=== PATIENT | male | born 1960 | race Two or more races ===

== ENCOUNTER 2022-12-26 23:12 | Inpatient (IN) | payer MEDICARE, MEDICAID, SELFPAY ==
[2022-12-26 23:23] VITALS: BP 151/91; BP 210/122; PULSE 104; PULSE 106; RESP 16; TEMP 36.9; O2SAT 94; O2SAT 97; BMI 28.7
--- NOTE | 2022-12-26 23:30 | ECG_ITS ---
Test Reason : TACHYCARDIA Blood Pressure : / mmHG Vent. Rate : 094 BPM Atrial Rate : 094 BPM P-R Int : 154 ms QRS Dur : 084 ms QT Int : 362 ms P-R-T Axes : 043 031 073 degrees QTc Int : 452 ms Normal sinus rhythm Nonspecific T wave abnormality Abnormal ECG When compared with ECG of 06-APR-2009 11:42, Non-specific change in ST segment in Lateral leads Referred By: Generic ED Physician Electronically Signed By:PHOENIX TOLENTINO MD
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
[2022-12-26 23:56] LABS: MANUAL DIFF FLAG NO
[2022-12-26 23:57] LABS: Basophils Percent Auto 0.3 % (0-2); Eosinophils Absolute Auto 0.1 X10*3/uL (0.0-0.4); Eosinophils Percent Auto 0.8 % (0-4); Hematocrit 41.5 % (42.0-52.0); Hemoglobin 14.2 g/dl (14.0-18.0); Imm Gran Abs Auto 0.02 X10*3/uL (0.00-0.03); Imm Gran Pct Auto 0.3 % (0.0-0.4); Lymphocytes Absolute Auto 1.3 X10*3/uL (1.2-4.9); Lymphocytes Percent Auto 17.1 % (20-40); Mean Corpuscular HGB Conc 34.2 g/dl (31.0-36.0); Mean Corpuscular Hemoglobin 29.2 pg (27.0-33.0); Mean Corpuscular Volume 85.2 fL (80.0-98.0); Mean Platelet Volume 9.4 fL (9.4-12.4); Monocytes Absolute Auto 0.6 X10*3/uL (0.1-1.2); Monocytes Percent Auto 7.5 % (2-11); Neutrophils Absolute Auto 5.7 x10*3/uL (2.0-8.3); Platelet Count 249 X10*3/uL (160-400); Red Blood Count 4.87 X10*6/uL (4.60-5.80); Red Cell Distribution Width 13.3 % (11.0-16.0); White Blood Count 7.7 X10*3/uL (4.8-10.8)
[2022-12-26 23:58] LABS: Appearance Urine Clear; Color Urine Dark Yellow; Glucose Urine UA Negative (Negative); Leukocyte Esterase Urine Small (1+) (Negative); Nitrite Urine Negative (Negative); Specific Gravity - Urine >= 1.030 (1.005-1.025); UMIC TRIGGER UACC YES; Urine Blood Trace (Negative); Urine Ketones 15 mg/dL (Negative); Urine Protein 30 (1+) mg/dL (Neg-Trace)
[2022-12-27 00:05] LABS: Bacteria Urine None Seen (None Seen); Hyaline Casts Urine 0-2 /LPF (0-2); Squamous Epithelial Cell Urine 0-2 /HPF (0-2); UACC Culture Trigger YES
[2022-12-27 00:06] LABS: Amphetamine Screen Urine Not Detected (Not Detect); Barbiturates, Urine Not Detected (Not Detect); Benzodiazepines Screen Urine Not Detected (Not Detect); Cannabinoid Screen Urine Not Detected (Not Detect); Cocaine Screen Urine POSITIVE (Not Detect); Fentanyl, urine Not Detected (Not Detect); Opiate Screen Urine Not Detected (Not Detect); Phencyclidine Screen Urine Not Detected (Not Detect)
[2022-12-27 00:10] LABS: Anion Gap 16 (12-20); Blood Urea Nitrogen 18 mg/dL (9-16); Calcium 9.1 mg/dL (8.4-10.2); Carbon Dioxide 23 mmol/L (22-29); Chloride 106 mmol/L (96-108); Creatinine Clr Calc Pharmacy 82.3; Estimated Glomerular Filt Rate > 60; Glucose Random 104 mg/dL (60-115); Potassium 3.4 mmol/L (3.3-5.1); Sodium 142 mmol/L (135-145)
--- NOTE | 2022-12-27 00:18 | MHC.EDTECH ---
[facility] 8
--- NOTE | 2022-12-27 02:36 | PC.NURSE ---
Erin from [facility] called looking for an update on the this pt.
[2022-12-27 02:54] VITALS: BP 157/96; PULSE 84; RESP 18; O2SAT 99
--- NOTE | 2022-12-27 05:30 | PC.NURSE ---
patient received in the unit in the unit up in bed complaining of bed not able to be elevated patient is frustrated and restless patient will continue to be monitored for safety
[2022-12-27 08:55] VITALS: BP 145/82; PULSE 88; RESP 18; TEMP 36.8; O2SAT 98
--- NOTE | 2022-12-27 09:01 | PC.NURSE ---
pt is a/o x 4 no sob/andrzej noted speaks in full sentences. pt denies any si/hi. care team at bedside. pt aware of plan of care.
--- NOTE | 2022-12-27 10:28 | PC.NURSE ---
dr. kilgore with brusher machine is at bedside, pt aware of plan of care.
--- NOTE | 2022-12-27 11:10 | PC.NURSE ---
CARE TEAM WITH [facility] MAGISTRATE AT BEDSIDE. PT AWARE OF PLAN OF CARE.
--- NOTE | 2022-12-27 14:36 | MHC.CARE ---
Pt seen by CARE team and placed on section 12 for inpatient level of care.
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
[2022-12-27 17:13] VITALS: BP 150/92; PULSE 59; RESP 19; TEMP 37.3; O2SAT 100
--- NOTE | 2022-12-27 22:01 | MHC.CARE ---
Tw conducted a bed search for this patient. No beds avaialble, Faxed to [facility] for review
[2022-12-28 00:58] LABS: COVID-19 Test Negative (Negative); IDNOW Serial# 08D9AD1C
--- NOTE | 2022-12-28 06:41 | PC.NURSE ---
Patient slept through the night, no distress observed/reported, patient is currently not on any home medication, patient is primarily Kosovan speaking but understand Welsh enough to understand the care, disposition per care team is section 12 inpatient bed search, VSS, behavior non concerning, will continue to monitor.
[2022-12-28 16:12] VITALS: BP 137/92; PULSE 69; RESP 16; TEMP 36.9; O2SAT 99
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
[2022-12-29 09:30] VITALS: BP 168/99; PULSE 74; RESP 18; TEMP 36.7; O2SAT 96
[2022-12-29 09:35] LABS: Estimated Average Glucose 111 mg/dL; Hemoglobin A1c % 5.5 %
[2022-12-29 09:36] LABS: Cholesterol 149 mg/dL; HDL Cholesterol 38 mg/dL; LDL Cholesterol Calculated 94 mg/dl; Triglycerides 88 mg/dL
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
[2022-12-29 18:00] VITALS: BP 184/94; PULSE 65; TEMP 36.4
[2022-12-30 06:00] VITALS: BP 124/75; PULSE 82; RESP 18; TEMP 36.3; O2SAT 98
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
[2022-12-30 19:40] VITALS: BP 161/85; PULSE 68; TEMP 35.9; O2SAT 99
[2022-12-30] MEDS: hydrOXYzine HCL 25 MG TABLET PO (19:49)
[2022-12-31 06:00] VITALS: BP 132/78; PULSE 72; RESP 18; TEMP 36.8; O2SAT 98
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
[2022-12-31 21:10] VITALS: BP 157/91; PULSE 72; TEMP 36.8
[2023-01-01 09:14] VITALS: BP 177/86; PULSE 66; RESP 18; TEMP 36.3; O2SAT 100
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
[2023-01-01 19:45] VITALS: BP 173/89; PULSE 75; TEMP 37.1; O2SAT 98
--- NOTE | 2023-01-01 21:12 | PC.NURSE ---
Patient declined to take Ceftin 500 mg po.
[2023-01-02 06:00] VITALS: BP 182/86; PULSE 58; RESP 18; TEMP 36.2; O2SAT 98
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
--- NOTE | 2023-01-02 22:20 | PC.NURSE ---
Patient refused HS Ceftin.
[2023-01-03 08:30] VITALS: BP 172/92; PULSE 68; RESP 18; TEMP 36.4; O2SAT 98
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
[2023-01-03 18:00] VITALS: BP 171/94; PULSE 72; TEMP 36.4; O2SAT 94
[2023-01-04 08:17] VITALS: BP 160/77; PULSE 56; RESP 16; TEMP 36.5; O2SAT 98
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
[2023-01-04] MEDS: Naloxone HCl Nasal TAKE HOME 4 MG SPRAY 8 MG NOSTRILALT (10:32)
== END 2023-01-04 11:50 | disposition home or self-care (01) | DRG 897 ==
LOC: HO.ED 12-27 05:04 → HO.PM5 12-28 22:08
PROVIDERS: Admitting Provider Psychiatry & Neurology Psychiatry; Emergency Provider Emergency Medicine; Visit Provider Psychiatry & Neurology Psychiatry
DX: F16.159 Hallucinogen abuse with hallucinogen-induced psychotic disorder, unspecified (principal); R45.851 Suicidal ideations; R45.850 Homicidal ideations; Z20.822 Contact with and (suspected) exposure to COVID-19; F14.10 Cocaine abuse, uncomplicated
CPT/HCPCS: 36415; 80048; 80061; 80307; 81001; 83036; 85025; 87086; 87635; 93005; 99285

== ENCOUNTER → 2022-12-26 23:30 | Outpatient (BNV) | payer MEDICARE, MEDICAID, SELFPAY | PROVIDERS: Emergency Provider Emergency Medicine; Visit Provider Internal Medicine Cardiovascular Disease | DX: R00.0 Tachycardia, unspecified (principal) | CPT/HCPCS: 93010 ==

== ENCOUNTER → 2022-12-27 00:43 | Outpatient (BNV) | payer MEDICARE, MEDICAID, SELFPAY | PROVIDERS: Emergency Provider Emergency Medicine; Visit Provider Social Worker | DX: F16.10 Hallucinogen abuse, uncomplicated (principal); F14.10 Cocaine abuse, uncomplicated; F29 Unspecified psychosis not due to a substance or known physiological condition | CPT/HCPCS: 90792; 99231; 99232; 99238; 99285 ==

== ENCOUNTER 2023-01-10 14:10 | Inpatient (IN) | payer MEDICARE, MEDICAID, SELFPAY ==
--- NOTE | 2023-01-10 14:41 | ECG_ITS ---
Test Reason : MEDICAL CLEARANCE Blood Pressure : / mmHG Vent. Rate : 073 BPM Atrial Rate : 073 BPM P-R Int : 160 ms QRS Dur : 084 ms QT Int : 364 ms P-R-T Axes : 015 049 086 degrees QTc Int : 401 ms Sinus rhythm with marked sinus arrhythmia Minimal voltage criteria for LVH, may be normal variant ( Sokolow-Weber ) Nonspecific T wave abnormality Abnormal ECG When compared with ECG of 26-DEC-2022 23:43, No significant change was found Referred By: Melissa Zapata Electronically Signed By:Hugh Vidal
[2023-01-10 15:07] VITALS: BP 147/77; PULSE 82; RESP 18; TEMP 37.3; O2SAT 98; BMI 28.1
--- NOTE | 2023-01-10 15:07 | ED.PSYCH ---
HPI - Psych General Chief Complaint: Psychiatric Symptoms Stated Complaint: Crisis Time Seen by Provider: 01/10/23 14:51 Source: patient Mode of arrival: ambulatory Limitations: no limitations History of Present Illness HPI Narrative: Patient comes to the emergency room complaining of suicidal ideation. Patient states that he relapsed using drugs and he has been considering hurting himself. No specific plan. Asking to be seen by behavioral health. Of note, patient was discharged 6 days ago, patient was hospitalized for psychosis secondary to cocaine and PCP abuse Related Data Home Medications Medication Instructions Recorded Confirmed No Known Home Meds 01/10/23 01/10/23 Allergies Allergy/AdvReac Type Severity Reaction Status Date / Time Shellfish Allergy Unknown UNKNOWN Uncoded 02/21/20 16:59 Review of Systems Review of Systems: Constitutional : No Weight loss, No Fever, No Chills, No Night Sweats, No Fatigue, No Malaise ENT/Mouth : No Hearing loss, No Ear Pain, No Nasal Congestion, No Sinus Pain, No Hoarseness, No sore throat, No Rhinorrhea, No Swallowing Difficulty Eyes: No Eye Pain, No Swelling, No Redness, No Foreign Body, No Discharge, No Vision Changes Cardiovascular : No Chest Pain, No SOB, No Dyspnea on Exertion, No Orthopnea, No Edema, No Palpitations Respiratory : No Cough, No Sputum, No Wheezing, No Smoke Exposure, No Dyspnea Gastrointestinal : No Nausea, No Vomiting, No Diarrhea, No Constipation, No abdominal Pain, No Hematochezia, No Melena Genitourinary : no irregular bleeding, No Dysuria, No Urinary Frequency, No Hematuria, No Urinary Incontinence, No Urgency, No Flank Pain, No Urinary Flow Changes, No Hesitancy Musculoskeletal : No joint pain, No Myalgias, No Joint Swelling Skin : No Skin Lesions, No rash Neuro : No Weakness, No Numbness, No Paresthesias, No Loss of Consciousness, No Dizziness, No Headache Psych : Being of anxiety, depression, suicidal ideation, denies homicidal ideation, complaining of drug relapse Heme/Lymph: No Bruising, No Bleeding,No Lymphadenopathy Endocrine : No Polyuria, No Polydipsia, No Temperature Intolerance PMFSH Past Medical History Medical History Cocaine abuse PCP abuse Psychosis Social History Social History Household Members: Family Housing: Apartment Do you presently have visiting nurse or other home services: No Alcohol intake: never Patient Tobacco Use Status: Never used Tobacco Smoked in Last 30 Days: No Second Hand Smoke Exposure: No Use of substances other than those prescribed or required for medical reasons: Yes Substance Use Type: Crack/Cocaine Substance Use Type Other:: patient un willinging to say Advance Directives: No Advance Directives Information Provided: No service: No Sexual orientation: Straight/Heterosexual Physical Exam Vital Signs: Vital Signs: Last Vital Signs Temp 97.8 F 01/11/23 01:48 Pulse 67 01/11/23 01:48 Resp 18 01/11/23 01:48 BP 176/89 H 01/11/23 01:48 Pulse Ox 99 01/11/23 01:48 O2 Del Method Room Air 01/11/23 01:48 BMI result Body Mass Index 28.1 Const: Other: Appearance: Alert. Oriented X3. No acute distress. Eyes: Pupils equal, round and reactive to light. ENT: Pharynx normal. Neck: Normal inspection. Neck supple. No lymph nodes noted. No crepitus CVS: Normal heart rate and rhythm. Pulses normal. Normal S1 and S2 Respiratory: No respiratory distress. Breath sounds normal. No Wheezing. No rales Abdomen: Soft and nontender. No rigidity. No distention. Skin: Skin warm and dry. Normal skin color. Normal skin turgor. Extremities: No lower extremity edema. No Lacerations. No Rash Neuro: Oriented X 3. No motor deficit. No sensory deficit. Moving all extremities. No slurred speech. CN 2 through 12 grossly intact Psych: calm, cooperative, flatl affect Course Course Course Narrative: -all of patient's labs pending -care team consult pending -physician observation started at 15:00 Reevaluation(s) Reevaluation #1: Asymptomatic elevated blood pressure otherwise stable vital signs, no events overnight reported by the nurse, await for care team evaluation today, continue with physician observation. Time: 08:35 Medical Decision Making Lab Data 01/10/23 15:26 01/10/23 15:26 Labs: Lab Results 01/10/23 01/10/23 01/10/23 Range/Units 15:26 15:26 15:26 WBC (4.8-10.8) X10*3/uL RBC (4.60-5.80) X10*6/uL Hgb (14.0-18.0) g/dl Hct (42.0-52.0) % MCV (80.0-98.0) fL MCH (27.0-33.0) pg MCHC (31.0-36.0) g/dl RDW (11.0-16.0) % Plt Count (160-400) X10*3/uL MPV (9.4-12.4) fL Immature Gran % (Auto) (0.0-0.4) % Neut % (Auto) (45-73) % Lymph % (Auto) (20-40) % [place] % (Auto) (2-11) % Eos % (Auto) (0-4) % Baso % (Auto) (0-2) % Lymph # (Auto) (1.2-4.9) X10*3/uL [place] # (Auto) (0.1-1.2) X10*3/uL Eos # (Auto) (0.0-0.4) X10*3/uL Baso # (Auto) (0.0-0.2) X10*3/uL Abs Immat Gran (auto) (0.00-0.03) X10*3/uL Absolute Neuts (auto) (2.0-8.3) x10*3/uL Absolute Nucleated RBC (0.0-0.012) X10*3/uL Nucleated RBC % (auto) (0.0-0.2) /100WBC Sodium 142 (135-145) mmol/L Potassium 3.5 (3.3-5.1) mmol/L Chloride 106 (96-108) mmol/L Carbon Dioxide 30 H (22-29) mmol/L Anion Gap 10 L (12-20) BUN 11 (9-16) mg/dL Creatinine 1.27 (0.5-1.4) mg/dL Estim Creat Clear Calc 67.2 Estimated GFR 58 Random Glucose 138 H (60-115) mg/dL Calcium 9.0 (8.4-10.2) mg/dL Total Bilirubin 0.7 (0.0-1.0) mg/dL AST 44 H (5-37) U/L ALT 57 H (0-40) U/L Alkaline Phosphatase 78 (39-117) U/L Total Protein 7.1 (6.5-8.0) g/dL Albumin 3.8 (3.5-5.0) g/dL Urine Color Urine Appearance Urine pH (5.0-9.0) Ur Specific [place] (1.005-1.025) Urine Protein (Neg-Trace) mg/dL Urine Glucose (UA) (Negative) mg/dL Urine Ketones (Negative) mg/dL Urine Blood (Negative) Urine Nitrite (Negative) Ur Leukocyte Esterase (Negative) Urine RBC (0-2) /HPF Urine WBC (0-5) /HPF Ur Squamous Epith Cells (0-2) /HPF Urine Bacteria (None Seen) Hyaline Casts (0-2) /LPF Salicylates < 5.0 L (15-30) mg/dL Urine Opiates Screen (Not Detect) Urine Fentanyl Screen (Not Detect) Acetaminophen < 17 (<30) mcg/mL Ur Barbiturates Screen (Not Detect) Ur Phencyclidine Scrn (Not Detect) Ur Amphetamines Screen (Not Detect) U Benzodiazepines Scrn (Not Detect) Urine Cocaine Screen (Not Detect) U Marijuana (THC) Screen (Not Detect) Ethyl Alcohol < 10 mg/dL COVID-19 (BRIAN) Negative (Negative) COVID-19 Clin Com See Note 01/10/23 01/10/23 01/10/23 Range/Units 15:26 15:26 15:26 WBC 6.4 (4.8-10.8) X10*3/uL RBC 5.03 (4.60-5.80) X10*6/uL Hgb 14.6 (14.0-18.0) g/dl Hct 45.0 (42.0-52.0) % MCV 89.5 (80.0-98.0) fL MCH 29.0 (27.0-33.0) pg MCHC 32.4 (31.0-36.0) g/dl RDW 13.5 (11.0-16.0) % Plt Count 261 (160-400) X10*3/uL MPV 9.6 (9.4-12.4) fL Immature Gran % (Auto) 0.5 H (0.0-0.4) % Neut % (Auto) 73.9 H (45-73) % Lymph % (Auto) 17.5 L (20-40) % Winston % (Auto) 5.5 (2-11) % Eos % (Auto) 2.0 (0-4) % Baso % (Auto) 0.6 (0-2) % Lymph # (Auto) 1.1 L (1.2-4.9) X10*3/uL [place] # (Auto) 0.4 (0.1-1.2) X10*3/uL Eos # (Auto) 0.1 (0.0-0.4) X10*3/uL Baso # (Auto) 0.0 (0.0-0.2) X10*3/uL Abs Immat Gran (auto) 0.03 (0.00-0.03) X10*3/uL Absolute Neuts (auto) 4.7 (2.0-8.3) x10*3/uL Absolute Nucleated RBC 0.000 (0.0-0.012) X10*3/uL Nucleated RBC % (auto) 0.0 (0.0-0.2) /100WBC Sodium (135-145) mmol/L Potassium (3.3-5.1) mmol/L Chloride (96-108) mmol/L Carbon Dioxide (22-29) mmol/L Anion Gap (12-20) BUN (9-16) mg/dL Creatinine (0.5-1.4) mg/dL Estim Creat Clear Calc Estimated GFR Random Glucose (60-115) mg/dL Calcium (8.4-10.2) mg/dL Total Bilirubin (0.0-1.0) mg/dL AST (5-37) U/L ALT (0-40) U/L Alkaline Phosphatase (39-117) U/L Total Protein (6.5-8.0) g/dL Albumin (3.5-5.0) g/dL Urine Color Dark Yellow Urine Appearance Clear Urine pH 6.5 (5.0-9.0) Ur Specific [place] 1.025 (1.005-1.025) Urine Protein Trace (Neg-Trace) mg/dL Urine Glucose (UA) Negative (Negative) mg/dL Urine Ketones Trace (Negative) mg/dL Urine Blood Negative (Negative) Urine Nitrite Negative (Negative) Ur Leukocyte Esterase Trace H (Negative) Urine RBC 3-5 H (0-2) /HPF Urine WBC 6-10 H (0-5) /HPF Ur Squamous Epith Cells 0-2 (0-2) /HPF Urine Bacteria None Seen (None Seen) Hyaline Casts 0-2 (0-2) /LPF Salicylates (15-30) mg/dL Urine Opiates Screen Not Detected (Not Detect) Urine Fentanyl Screen Not Detected (Not Detect) Acetaminophen (<30) mcg/mL Ur Barbiturates Screen Not Detected (Not Detect) Ur Phencyclidine Scrn Not Detected (Not Detect) Ur Amphetamines Screen Not Detected (Not Detect) U Benzodiazepines Scrn Not Detected (Not Detect) Urine Cocaine Screen POSITIVE H (Not Detect) U Marijuana (THC) Screen Not Detected (Not Detect) Ethyl Alcohol mg/dL COVID-19 (BRIAN) (Negative) COVID-19 Clin Com Discharge Plan Discharge Clinical Impression: Depression, Suicidal ideation Patient Disposition: Still a Patient Prescriptions: No Action No Known Home Meds Interventions: [place]-Suicide Risk Severity Scale Last Done: 01/11/23 01:48
[2023-01-10 15:36] LABS: MANUAL DIFF FLAG NO
[2023-01-10 15:39] LABS: Appearance Urine Clear; Basophils Percent Auto 0.6 % (0-2); Color Urine Dark Yellow; Eosinophils Absolute Auto 0.1 X10*3/uL (0.0-0.4); Glucose Urine UA Negative (Negative); Hemoglobin 14.6 g/dl (14.0-18.0); Imm Gran Abs Auto 0.03 X10*3/uL (0.00-0.03); Imm Gran Pct Auto 0.5 % (0.0-0.4); Leukocyte Esterase Urine Trace (Negative); Lymphocytes Absolute Auto 1.1 X10*3/uL (1.2-4.9); Lymphocytes Percent Auto 17.5 % (20-40); Mean Corpuscular HGB Conc 32.4 g/dl (31.0-36.0); Mean Corpuscular Volume 89.5 fL (80.0-98.0); Mean Platelet Volume 9.6 fL (9.4-12.4); Monocytes Absolute Auto 0.4 X10*3/uL (0.1-1.2); Monocytes Percent Auto 5.5 % (2-11); Neutrophils Absolute Auto 4.7 x10*3/uL (2.0-8.3); Neutrophils Percent Auto 73.9 % (45-73); Nitrite Urine Negative (Negative); PH 6.5 (5.0-9.0); Platelet Count 261 X10*3/uL (160-400); Red Blood Count 5.03 X10*6/uL (4.60-5.80); Red Cell Distribution Width 13.5 % (11.0-16.0); Specific Gravity - Urine 1.025 (1.005-1.025); UMIC TRIGGER UA YES; Urine Blood Negative (Negative); Urine Ketones Trace mg/dL (Negative); Urine Protein Trace mg/dL (Neg-Trace); White Blood Count 6.4 X10*3/uL (4.8-10.8)
[2023-01-10 15:44] LABS: Bacteria Urine None Seen (None Seen); Hyaline Casts Urine 0-2 /LPF (0-2); Squamous Epithelial Cell Urine 0-2 /HPF (0-2)
--- NOTE | 2023-01-10 15:52 | PC.NURSE ---
Patient mostly swedish speaking, information obtained via dental treatment coordinator. Patient difficult to engage in conversation. States that he has wanted to kill himself x 1 day. States yesterday did lots of drugs to try to kill himself but it did not work. States had been sober prior to yesterday but had a relapse. Un willing to say what drugs he did. Denies pain or discomfort.
[2023-01-10 16:04] LABS: COVID-19 Test Negative (Negative); IDNOW Serial# BCCEAD1C
[2023-01-10 16:06] LABS: Amphetamine Screen Urine Not Detected (Not Detect); Barbiturates, Urine Not Detected (Not Detect); Benzodiazepines Screen Urine Not Detected (Not Detect); Cannabinoid Screen Urine Not Detected (Not Detect); Cocaine Screen Urine POSITIVE (Not Detect); Fentanyl, urine Not Detected (Not Detect); Opiate Screen Urine Not Detected (Not Detect); Phencyclidine Screen Urine Not Detected (Not Detect)
[2023-01-10 16:13] LABS: Alanine Aminotransferase 57 U/L (0-40); Albumin Level 3.8 g/dL (3.5-5.0); Alkaline Phosphatase 78 U/L (39-117); Anion Gap 10 (12-20); Aspartate Amino Transferase 44 U/L (5-37); Bilirubin Total 0.7 mg/dL (0.0-1.0); Blood Urea Nitrogen 11 mg/dL (9-16); Carbon Dioxide 30 mmol/L (22-29); Chloride 106 mmol/L (96-108); Creatinine Clr Calc Pharmacy 67.2; Estimated Glomerular Filt Rate 58; Ethanol < 10 mg/dL; Glucose Random 138 mg/dL (60-115); Potassium 3.5 mmol/L (3.3-5.1); Salicylate < 5.0 mg/dL (15-30); Sodium 142 mmol/L (135-145); Total Protein 7.1 g/dL (6.5-8.0)
[2023-01-10 17:01] LABS: Acetaminophen LAB < 17 mcg/mL (<30)
--- NOTE | 2023-01-10 17:49 | PC.NURSE ---
calm and cooperative, resting quietly in bed at this time
[2023-01-11 01:48] VITALS: BP 176/89; PULSE 67; RESP 18; TEMP 36.6; O2SAT 99
--- NOTE | 2023-01-11 06:15 | PC.NURSE ---
Patient slept through the night, no distress observed/reported, patient is currently not on any home medication per pharmacy claim history, patient has untreated hypertension, behavior non concerning mostly isolates in his room, care consult ordered for suicidal ideation, pending assessment, labs completed/resulted, will continue to monitor.
[2023-01-11 09:26] VITALS: BP 159/83; PULSE 68; RESP 14; TEMP 36.3; O2SAT 99
--- NOTE | 2023-01-11 15:11 | PHA.MEDREC ---
Pharmacy Consult ? Medication Reconciliation Pharmacy has reviewed the medication reconciliation completed by nursing.
--- NOTE | 2023-01-11 15:16 | PHA.MEDREC ---
Pharmacy Consult ? Medication Reconciliation Pharmacy has reviewed the medication reconciliation completed by nursing.
[2023-01-11 17:31] VITALS: BP 157/91; PULSE 65; RESP 18; TEMP 36.6; O2SAT 97
[2023-01-11 17:33] VITALS: BMI 30.4
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
[2023-01-11 21:35] VITALS: RESP 14
--- NOTE | 2023-01-11 22:07 | PC.NURSE ---
patient has refused all VS. respirations done by observation in the darkened room. patient is experiencing episodes of yelling out c/o light in the hallway and upset that roommate was having a discussion with staff. offered and declined medications for comfort or sleep ''leave me alone''
[2023-01-12 08:34] VITALS: BP 137/62; PULSE 80; RESP 20; TEMP 36.3; O2SAT 97
[2023-01-12 09:46] LABS: Estimated Average Glucose 120 mg/dL; Hemoglobin A1c % 5.8 %
[2023-01-12 10:00] LABS: Alanine Aminotransferase 41 U/L (0-40); Albumin Level 3.9 g/dL (3.5-5.0); Alkaline Phosphatase 69 U/L (39-117); Anion Gap 10 (12-20); Aspartate Amino Transferase 23 U/L (5-37); Bilirubin Total 0.4 mg/dL (0.0-1.0); Blood Urea Nitrogen 10 mg/dL (9-16); Calcium 9.4 mg/dL (8.4-10.2); Carbon Dioxide 30 mmol/L (22-29); Chloride 105 mmol/L (96-108); Cholesterol 168 mg/dL; Creatinine Clr Calc Pharmacy 94.3; Estimated Glomerular Filt Rate > 60; Glucose Fasting 70 mg/dL (60-99); HDL Cholesterol 41 mg/dL; LDL Cholesterol Calculated 112 mg/dl; Potassium 3.9 mmol/L (3.3-5.1); Sodium 141 mmol/L (135-145); Total Protein 7.3 g/dL (6.5-8.0); Triglycerides 79 mg/dL
[2023-01-12 10:10] LABS: Free T4 (Free Thyroxine) 0.98 ng/dL (0.71-1.85)
[2023-01-12 10:25] LABS: Folate 8.3 ng/mL (> or = 4.0); Vitamin B12 494 pg/mL (200-900)
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
[2023-01-12] MEDS: buPROPion HCl XL 150 MG TAB.ER.24H PO (13:14)
[2023-01-12 20:31] VITALS: BP 178/86; PULSE 66; TEMP 36.6; O2SAT 97
[2023-01-13 07:00] VITALS: BMI 31.0
[2023-01-13] MEDS: buPROPion HCl XL 150 MG TAB.ER.24H PO (09:30)
[2023-01-13 10:42] VITALS: BP 176/97; PULSE 62; RESP 20; TEMP 36.7; O2SAT 96
[2023-01-13] MEDS: lisinopriL 10 MG TABLET PO (11:57)
--- NOTE | 2023-01-13 12:44 | HO.PSYCHPN ---
Subjective Subjective Date of Service: 01/13/23 Reason For Visit: SI Interim History: seen with surface hydrologist. reports mood is not well. poor sleep. agrees to schedule trazodone 50 QHS. will continue with wellbutrin 150 another day, then increase. discuss HTN, agreeable to start lisinopril 10 daily. per staff, dep/anx 01/13. friendly, social. med and meal compliant. Mental Status Exam Mental Status Exam Narrative: Pt is alert and oriented; behavior is cooperative, friendly and calm; patient is not in distress; dressed in casual attire, bald, adequate hygiene; mood is described as low mood and affect congruent; eye contact appropriate; Speech is normal rate, volume and prosody and not pressured; no psychomotor agitation/retardation present; thought process is organized and goal directed; Thought content is lacking in delusions or paranoia. no SI/HI/AVH expressed. Diagnostics Vital Signs (24Hr): Vital Signs - 24 hr 01/12/23 20:31 01/13/23 10:42 Temperature 97.9 F 98.0 F Pulse Rate 66 62 Respiratory Rate 20 Blood Pressure 178/86 H 176/97 H Pulse Oximetry 97 96 Oxygen Delivery Method Room Air Room Air BMI result Body Mass Index 31.0 Labs 01/10/23 15:26 01/12/23 09:17 Labs: Laboratory Results - last 48 hr 01/12/23 01/12/23 01/12/23 09:17 09:17 09:17 Sodium 141 Potassium 3.9 Chloride 105 Carbon Dioxide 30 H Anion Gap 10 L BUN 10 Creatinine 0.94 Estim Creat Clear Calc 94.3 Estimated GFR > 60 Fasting Glucose 70 Estimat Average Glucose 120 Hemoglobin A1c % 5.8 Calcium 9.4 Total Bilirubin 0.4 AST 23 ALT 41 H Alkaline Phosphatase 69 Total Protein 7.3 Albumin 3.9 Triglycerides 79 Cholesterol 168 LDL Cholesterol, Calc 112 HDL Cholesterol 41 Vitamin B12 494 Folate 8.3 TSH 0.80 Free T4 0.98 Medications Medications Current Medications Acetaminophen (Acetaminophen 325 Mg Tablet) 650 mg PO Q6H PRN PRN Reason: Headache/Pain Mild Scale (1-3) Al Hydroxide/Mg Hydroxide (Magnesium Hydrox/Alum Hydrox 30 Ml Oral.Susp) 30 ml PO Q6H PRN PRN Reason: Heartburn/Nausea Bupropion HCl (Bupropion Hcl Xl 150 Mg Tab.Er.24h) 150 mg PO DAILY LOS Last Admin: 01/13/23 09:30 Dose: 150 mg Hydroxyzine HCl (Hydroxyzine Hcl 25 Mg Tablet) 25 mg PO Q6H PRN PRN Reason: Anxiety Lisinopril (Lisinopril 10 Mg Tablet) 10 mg PO DAILY [facility]; Protocol Last Admin: 01/13/23 11:57 Dose: 10 mg Magnesium Hydroxide (Milk Of Magnesia 30 Ml Oral.Susp) 30 ml PO DAILY PRN PRN Reason: Constipation Nicotine Polacrilex (Nicotine Polacrilex 2 Mg Gum) 4 mg BUCCAL Q2H PRN PRN Reason: Nicotine Cravings Trazodone HCl (Trazodone Hcl 50 Mg Tablet) 50 mg PO BEDTIME MRX1 PRN PRN Reason: Insomnia Trazodone HCl (Trazodone Hcl 50 Mg Tablet) 50 mg PO BEDTIME LOS Allergies Allergies Allergy/AdvReac Type Severity Reaction Status Date / Time Shellfish Allergy Unknown UNKNOWN Uncoded 02/21/20 16:59 Assessment & Plan Assessment & Plan (1) PCP abuse: Status: Acute Code(s): F16.10 - Hallucinogen abuse, uncomplicated (2) Cocaine abuse: Status: Acute Code(s): F14.10 - Cocaine abuse, uncomplicated (3) Depressive disorder: Status: Acute Code(s): F32.A - Depression, unspecified Plan 01/12: start wellbutrin 150. T/C adding neuroleptic if indicated for reported AVH. refer for rehabs. 01/13: schedule trazodone for insomnia. continue wellbutrin 150. start lisinopril 10 for HTN. depressed. Patient educated on: medication risk/benefits and medical condition Reason for continued inpatient stay Substantial Risk for: harm to self, inability to function and rapid decompensation Time Spent With Patient Time: Total time managing care of this patient today _25___ minutes.
[2023-01-13 20:15] VITALS: BP 172/82; PULSE 64; RESP 18; TEMP 36.5; O2SAT 98
[2023-01-13] MEDS: amLODIPine Besylate 5 MG TABLET PO (20:37)
[2023-01-13 21:25] VITALS: BP 179/86; PULSE 76
[2023-01-13] MEDS: traZODone HCL 50 MG TABLET PO (21:26)
[2023-01-14 08:30] VITALS: BP 151/80; PULSE 88; RESP 18; TEMP 36.6; O2SAT 98
[2023-01-14] MEDS: lisinopriL 10 MG TABLET PO (09:24)
[2023-01-14] MEDS: buPROPion HCl XL 150 MG TAB.ER.24H PO (09:25)
[2023-01-14] MEDS: amLODIPine Besylate 5 MG TABLET PO (10:56)
[2023-01-14 10:57] VITALS: BP 179/92
--- NOTE | 2023-01-14 11:44 | PC.NURSE ---
1055 BP prior to giving [facility] 179 , Dr. Prather made aware. No new orders.
--- NOTE | 2023-01-14 12:58 | P.PNPSI_ITS ---
Subjective Subjective Date of Service: 01/14/23 Reason For Visit: SI Interim History: seen with EUGENE lyons and clinical courier. vague reports of AVH, no SI. reports he slept a bit better last night, but only about 5 hours. agrees to increase trazodone to 75 mg at HS. also willing to continue titration of wellbutrin to 300 mg daily as of tomorrow. discuss HTN mgmt, increasing lisinopril to 20 mg daily and adding norvasc 5 mg daily. long discussion held re dispo planning, pt's reasons for turning down [facility] referrals, his housing options for discharge. he was informed of plan for discharge some time next week. per staff, anx/dep 8. c/o CAH to kill himself. pleasant, visible, social. occasional SI. +AVH. Mental Status Exam Mental Status Exam Narrative: Pt is alert and oriented; behavior is cooperative, friendly and calm; patient is not in distress; dressed in casual attire, bald, adequate hygiene; affect constricted, normo-intense, non-labile; eye contact appropriate; Speech is normal rate, decr loudness and prosody; no psychomotor agitation/retardation present; thought process is organized and goal directed; Thought content is lacking in delusions or paranoia. vague AVH. no SI. Diagnostics Vital Signs (24Hr): Vital Signs - 24 hr 01/13/23 20:15 01/13/23 21:25 01/14/23 08:30 Temperature 97.7 F 97.9 F Pulse Rate 64 76 88 Respiratory Rate 18 18 Blood Pressure 172/82 H 179/86 H 151/80 H Pulse Oximetry 98 98 Oxygen Delivery Method Room Air Room Air 01/14/23 10:57 Temperature Pulse Rate Respiratory Rate Blood Pressure 179/92 H Pulse Oximetry Oxygen Delivery Method BMI result Body Mass Index 31.0 Labs 01/10/23 15:26 01/12/23 09:17 Medications Medications Current Medications Acetaminophen (Acetaminophen 325 Mg Tablet) 650 mg PO Q6H PRN PRN Reason: Headache/Pain Mild Scale (1-3) Al Hydroxide/Mg Hydroxide (Magnesium Hydrox/Alum Hydrox 30 Ml Oral.Susp) 30 ml PO Q6H PRN PRN Reason: Heartburn/Nausea Amlodipine Besylate (Amlodipine Besylate 5 Mg Tablet) 5 mg PO DAILY LOS; Protocol Last Admin: 01/14/23 10:56 Dose: 5 mg Bupropion HCl (Bupropion Hcl Xl 300 Mg Tab.Er.24h) 300 mg PO DAILY LOS Hydroxyzine HCl (Hydroxyzine Hcl 25 Mg Tablet) 25 mg PO Q6H PRN PRN Reason: Anxiety Lisinopril (Lisinopril 20 Mg Tablet) 20 mg PO DAILY LOS; Protocol Magnesium Hydroxide (Milk Of Magnesia 30 Ml Oral.Susp) 30 ml PO DAILY PRN PRN Reason: Constipation Nicotine Polacrilex (Nicotine Polacrilex 2 Mg Gum) 4 mg BUCCAL Q2H PRN PRN Reason: Nicotine Cravings Trazodone HCl (Trazodone Hcl 50 Mg Tablet) 50 mg PO BEDTIME MRX1 PRN PRN Reason: Insomnia Trazodone HCl (Trazodone Hcl 25 Mg Halftab) 75 mg PO BEDTIME LOS Allergies Allergies Allergy/AdvReac Type Severity Reaction Status Date / Time Shellfish Allergy Unknown UNKNOWN Uncoded 02/21/20 16:59 Assessment & Plan Assessment & Plan (1) PCP abuse: Status: Acute Code(s): F16.10 - Hallucinogen abuse, uncomplicated (2) Cocaine abuse: Status: Acute Code(s): F14.10 - Cocaine abuse, uncomplicated (3) Depressive disorder: Status: Acute Code(s): F32.A - Depression, unspecified Plan 01/12: start wellbutrin 150. T/C adding neuroleptic if indicated for reported AVH. refer for rehabs. 01/13: schedule trazodone for insomnia. continue wellbutrin 150. start lisinopril 10 for HTN. depressed. 01/14: increase trazodone to 75 mg QHS. increase wellbutrin to 300 as of tomorrow. increase lisinopril to 20 as of tomorrow, start norvasc 5 today. titrate anti-HTN meds over w/e as indicated. planning for discharge some time next week. AVH not very credible, pt appears motivated largely by homelessness. Reason for continued inpatient stay Substantial Risk for: rapid decompensation Time Spent With Patient Time: Total time managing care of this patient today _35___ minutes.
[2023-01-14] MEDS: traZODone HCL 25 MG HALFTAB 75 MG PO (21:19)
[2023-01-14 21:22] VITALS: BP 160/85; PULSE 67; TEMP 36.6; O2SAT 98
--- NOTE | 2023-01-15 02:27 | PC.NURSE ---
AGITATION-patient became agitated when staff performing safety checks. reports ''I only like it dark'' hallway lights at lowest light. offered PRN medication for sleep/anxiety but refused. ''just leave me alone''
[2023-01-15 06:00] VITALS: BP 147/78; PULSE 61; RESP 18; TEMP 36.6; O2SAT 99
[2023-01-15] MEDS: amLODIPine Besylate 5 MG TABLET PO (08:26)
[2023-01-15] MEDS: lisinopriL 20 MG TABLET PO (08:27)
[2023-01-15] MEDS: buPROPion HCl XL 300 MG TAB.ER.24H PO (08:27)
--- NOTE | 2023-01-15 15:57 | HO.PSYCHPN ---
Subjective Subjective Date of Service: 01/15/23 Reason For Visit: SI Subjective Notes: Conditional Voluntary Interim History: pt irritable dysphoric c/o insomnia agitated last nite Mental Status Exam Mental Status Exam Patient Appearance: Well Grooomed Patient Orientation: Person, Place and Situation Level of Consciousness: Awake Patient Behavior: Appropriate Mood Description: Labile and Apprehensive Affect Description: Labile and Apprehensive Speech Pattern: Clear Memory Description: Intact Hallucinations: Auditory Delusions: Not Present Depressive Symptoms: Insomnia and Increased Irritability Abnormal Motor Activity Signs and Symptoms: Hyperactivity Judgement: Fair Diagnostics Vital Signs (24Hr): Vital Signs - 24 hr 01/14/23 21:22 01/15/23 06:00 Temperature 97.8 F 97.9 F Pulse Rate 67 61 Respiratory Rate 18 Blood Pressure 160/85 H 147/78 H Pulse Oximetry 98 99 Oxygen Delivery Method Room Air Room Air BMI result Body Mass Index 31.0 Labs 01/10/23 15:26 01/12/23 09:17 Medications Medications Current Medications Acetaminophen (Acetaminophen 325 Mg Tablet) 650 mg PO Q6H PRN PRN Reason: Headache/Pain Mild Scale (1-3) Al Hydroxide/Mg Hydroxide (Magnesium Hydrox/Alum Hydrox 30 Ml Oral.Susp) 30 ml PO Q6H PRN PRN Reason: Heartburn/Nausea Amlodipine Besylate (Amlodipine Besylate 5 Mg Tablet) 5 mg PO DAILY [facility]; Protocol Last Admin: 01/15/23 08:26 Dose: 5 mg Bupropion HCl (Bupropion Hcl Xl 300 Mg Tab.Er.24h) 300 mg PO DAILY [facility] Last Admin: 01/15/23 08:27 Dose: 300 mg Hydroxyzine HCl (Hydroxyzine Hcl 25 Mg Tablet) 25 mg PO Q6H PRN PRN Reason: Anxiety Lisinopril (Lisinopril 20 Mg Tablet) 20 mg PO DAILY [facility]; Protocol Last Admin: 01/15/23 08:27 Dose: 20 mg Magnesium Hydroxide (Milk Of Magnesia 30 Ml Oral.Susp) 30 ml PO DAILY PRN PRN Reason: Constipation Mirtazapine (Mirtazapine 7.5 Mg Tablet) 7.5 mg PO BEDTIME MRX1 LOS Nicotine Polacrilex (Nicotine Polacrilex 2 Mg Gum) 4 mg BUCCAL Q2H PRN PRN Reason: Nicotine Cravings Quetiapine Fumarate (Quetiapine Fumarate 25 Mg Tablet) 25 mg PO BEDTIME [facility] Allergies Allergies Allergy/AdvReac Type Severity Reaction Status Date / Time Shellfish Allergy Unknown UNKNOWN Uncoded 02/21/20 16:59 Assessment & Plan Assessment & Plan (1) PCP abuse: Status: Acute Code(s): F16.10 - Hallucinogen abuse, uncomplicated (2) Cocaine abuse: Status: Acute Code(s): F14.10 - Cocaine abuse, uncomplicated (3) Depressive disorder: Status: Acute Code(s): F32.A - Depression, unspecified Plan 01/12: start wellbutrin 150. T/C adding neuroleptic if indicated for reported AVH. refer for rehabs. 01/13: schedule trazodone for insomnia. continue wellbutrin 150. start lisinopril 10 for HTN. depressed. 01/14: increase trazodone to 75 mg QHS. increase wellbutrin to 300 as of tomorrow. increase lisinopril to 20 as of tomorrow, start norvasc 5 today. titrate anti-HTN meds over w/e as indicated. planning for discharge some time next week. AVH not very credible, pt appears motivated largely by homelessness. 01/15/23 start mirtazapine hs seroquel irritability insomnia full affect Patient educated on: medication risk/benefits Reason for continued inpatient stay Substantial Risk for: harm to self and rapid decompensation Time Spent With Patient Time: Total time managing care of this patient today ____ minutes.
[2023-01-15] MEDS: Mirtazapine 7.5 MG TABLET PO (22:23)
[2023-01-15] MEDS: QUEtiapine Fumarate 25 MG TABLET PO (22:23)
[2023-01-15 22:26] VITALS: BP 190/87; PULSE 81; TEMP 36.6; O2SAT 96
[2023-01-16 09:30] VITALS: BP 171/84; PULSE 79; RESP 18; TEMP 36.7; O2SAT 97
[2023-01-16] MEDS: buPROPion HCl XL 300 MG TAB.ER.24H PO (09:39)
[2023-01-16] MEDS: amLODIPine Besylate 5 MG TABLET PO (09:39)
[2023-01-16] MEDS: lisinopriL 20 MG TABLET PO (09:39)
--- NOTE | 2023-01-16 09:50 | P.PNPSI_ITS ---
Subjective Subjective Date of Service: 01/16/23 Reason For Visit: SI Subjective Notes: Conditional Voluntary Interim History: Patient calmer less reactive noted to be hypertensive in the evening improve sleep Remeron low-dose Seroquel Medication Compliance: Yes Side effects from medications: Yes (Question hypertension from increase Wellbutrin) Mental Status Exam Mental Status Exam Patient Appearance: Well Grooomed Patient Orientation: Person, Place and Situation Level of Consciousness: Awake Patient Behavior: Appropriate Mood Description: Labile and Apprehensive Affect Description: Labile and Apprehensive Speech Pattern: Clear Memory Description: Intact Hallucinations: Auditory Delusions: Not Present Depressive Symptoms: Insomnia and Increased Irritability Abnormal Motor Activity Signs and Symptoms: Hyperactivity Judgement: Fair Diagnostics Vital Signs (24Hr): Vital Signs - 24 hr 01/15/23 22:26 01/16/23 09:30 Temperature 97.9 F 98.0 F Pulse Rate 81 79 Respiratory Rate 18 Blood Pressure 190/87 H 171/84 H Pulse Oximetry 96 97 Oxygen Delivery Method Room Air Room Air BMI result Body Mass Index 31.0 Labs 01/10/23 15:26 01/12/23 09:17 Medications Medications Current Medications Acetaminophen (Acetaminophen 325 Mg Tablet) 650 mg PO Q6H PRN PRN Reason: Headache/Pain Mild Scale (1-3) Al Hydroxide/Mg Hydroxide (Magnesium Hydrox/Alum Hydrox 30 Ml Oral.Susp) 30 ml PO Q6H PRN PRN Reason: Heartburn/Nausea Amlodipine Besylate (Amlodipine Besylate 5 Mg Tablet) 5 mg PO DAILY [facility]; Protocol Last Admin: 01/16/23 09:39 Dose: 5 mg Bupropion HCl (Bupropion Hcl Xl 300 Mg Tab.Er.24h) 300 mg PO DAILY [facility] Last Admin: 01/16/23 09:39 Dose: 300 mg Hydroxyzine HCl (Hydroxyzine Hcl 25 Mg Tablet) 25 mg PO Q6H PRN PRN Reason: Anxiety Lisinopril (Lisinopril 20 Mg Tablet) 20 mg PO DAILY [facility]; Protocol Last Admin: 01/16/23 09:39 Dose: 20 mg Magnesium Hydroxide (Milk Of Magnesia 30 Ml Oral.Susp) 30 ml PO DAILY PRN PRN Reason: Constipation Mirtazapine (Mirtazapine 7.5 Mg Tablet) 7.5 mg PO BEDTIME MRX1 [facility] Last Admin: 01/16/23 03:42 Dose: Not Given Nicotine Polacrilex (Nicotine Polacrilex 2 Mg Gum) 4 mg BUCCAL Q2H PRN PRN Reason: Nicotine Cravings Quetiapine Fumarate (Quetiapine Fumarate 25 Mg Tablet) 25 mg PO BEDTIME LOS Last Admin: 01/15/23 22:23 Dose: 25 mg Allergies Allergies Allergy/AdvReac Type Severity Reaction Status Date / Time Shellfish Allergy Unknown UNKNOWN Uncoded 02/21/20 16:59 Assessment & Plan Assessment & Plan (1) PCP abuse: Status: Acute Code(s): F16.10 - Hallucinogen abuse, uncomplicated (2) Cocaine abuse: Status: Acute Code(s): F14.10 - Cocaine abuse, uncomplicated (3) Depressive disorder: Status: Acute Code(s): F32.A - Depression, unspecified Plan 01/12: start wellbutrin 150. T/C adding neuroleptic if indicated for reported AVH. refer for rehabs. 01/13: schedule trazodone for insomnia. continue wellbutrin 150. start lisinopril 10 for HTN. depressed. 01/14: increase trazodone to 75 mg QHS. increase wellbutrin to 300 as of tomorrow. increase lisinopril to 20 as of tomorrow, start norvasc 5 today. titrate anti-HTN meds over w/e as indicated. planning for discharge some time next week. AVH not very credible, pt appears motivated largely by homelessness. 01/15/23 start mirtazapine hs seroquel irritability insomnia full affect 01/16/2023 Her amlodipine increased 7.5 mg may need to decrease Wellbutrin clonidine p.r.n. Reason for continued inpatient stay Substantial Risk for: harm to self and rapid decompensation Time Spent With Patient Time: Total time managing care of this patient today ____ minutes.
[2023-01-16] MEDS: QUEtiapine Fumarate 25 MG TABLET PO (21:27)
[2023-01-16] MEDS: Mirtazapine 7.5 MG TABLET PO (21:27)
[2023-01-16 21:29] VITALS: BP 178/96; PULSE 93; TEMP 36.5; O2SAT 95
[2023-01-17 08:05] VITALS: BP 172/82; PULSE 74; RESP 18; TEMP 36.6; O2SAT 99
[2023-01-17] MEDS: lisinopriL 20 MG TABLET PO (09:57)
[2023-01-17] MEDS: amLODIPine Besylate 2.5 MG TABLET 7.5 MG PO (09:57)
[2023-01-17] MEDS: buPROPion HCl XL 300 MG TAB.ER.24H PO (09:58)
--- NOTE | 2023-01-17 15:18 | HO.PSYCHPN ---
Subjective Subjective Date of Service: 01/17/23 Reason For Visit: SI Interim History: HTN continues, agreeable to advance regimen. c/o insomnia, agrees to increase seroquel to 50 mg QHS. unable to compromise to continue to engage in Tx (ie, refusing CSS referral bcse he wants to be in [facility] as his daughter is here, and there are no CSSs in [place]). continue to engage in discussion around dispo planning. per staff, pleasant, high anx/dep. irritable re checks, concerned regarding where he will go upon discharge. taking seroquel and remeron at HS now. Mental Status Exam Mental Status Exam Narrative: Pt is alert and oriented; behavior is cooperative, friendly and calm; patient is not in distress; dressed in casual attire, bald, adequate hygiene; affect constricted, normo-intense, non-labile; eye contact appropriate; Speech is incr amount, normal rate, decr loudness and prosody; no psychomotor agitation/retardation present; thought process is organized and goal directed; Thought content is lacking in delusions or paranoia. no SI/HI/AVH expressed. Diagnostics Vital Signs (24Hr): Vital Signs - 24 hr 01/16/23 21:29 01/17/23 08:05 Temperature 97.7 F 97.9 F Pulse Rate 93 74 Respiratory Rate 18 Blood Pressure 178/96 H 172/82 H Pulse Oximetry 95 99 Oxygen Delivery Method Room Air Room Air BMI result Body Mass Index 31.0 Labs 01/10/23 15:26 01/12/23 09:17 Medications Medications Current Medications Acetaminophen (Acetaminophen 325 Mg Tablet) 650 mg PO Q6H PRN PRN Reason: Headache/Pain Mild Scale (1-3) Al Hydroxide/Mg Hydroxide (Magnesium Hydrox/Alum Hydrox 30 Ml Oral.Susp) 30 ml PO Q6H PRN PRN Reason: Heartburn/Nausea Amlodipine Besylate (Amlodipine Besylate 10 Mg Tablet) 10 mg PO DAILY LOS; Protocol Bupropion HCl (Bupropion Hcl Xl 300 Mg Tab.Er.24h) 300 mg PO DAILY LOS Last Admin: 01/17/23 09:58 Dose: 300 mg Clonidine HCl (Clonidine Hcl 0.1 Mg Tablet) 0.1 mg PO BID PRN; Protocol PRN Reason: hypertension Hydroxyzine HCl (Hydroxyzine Hcl 25 Mg Tablet) 25 mg PO Q6H PRN PRN Reason: Anxiety Lisinopril (Lisinopril 40 Mg Tablet) 40 mg PO DAILY LOS; Protocol Magnesium Hydroxide (Milk Of Magnesia 30 Ml Oral.Susp) 30 ml PO DAILY PRN PRN Reason: Constipation Mirtazapine (Mirtazapine 7.5 Mg Tablet) 7.5 mg PO BEDTIME MRX1 LOS Last Admin: 01/17/23 01:44 Dose: Not Given Nicotine Polacrilex (Nicotine Polacrilex 2 Mg Gum) 4 mg BUCCAL Q2H PRN PRN Reason: Nicotine Cravings Quetiapine Fumarate (Quetiapine Fumarate 50 Mg Tablet) 50 mg PO BEDTIME LOS Allergies Allergies Allergy/AdvReac Type Severity Reaction Status Date / Time Shellfish Allergy Unknown UNKNOWN Uncoded 02/21/20 16:59 Assessment & Plan Assessment & Plan (1) PCP abuse: Status: Acute Code(s): F16.10 - Hallucinogen abuse, uncomplicated (2) Cocaine abuse: Status: Acute Code(s): F14.10 - Cocaine abuse, uncomplicated (3) Depressive disorder: Status: Acute Code(s): F32.A - Depression, unspecified Plan 01/12: start wellbutrin 150. T/C adding neuroleptic if indicated for reported AVH. refer for rehabs. 01/13: schedule trazodone for insomnia. continue wellbutrin 150. start lisinopril 10 for HTN. depressed. 01/14: increase trazodone to 75 mg QHS. increase wellbutrin to 300 as of tomorrow. increase lisinopril to 20 as of tomorrow, start norvasc 5 today. titrate anti-HTN meds over w/e as indicated. planning for discharge some time next week. AVH not very credible, pt appears motivated largely by homelessness. 01/15/23: start mirtazapine hs seroquel irritability insomnia full affect 01/16/2023: amlodipine increased 7.5 mg may need to decrease Wellbutrin clonidine p.r.n. 01/17: norvasc increased to 10 and lisinopril increased to 40 as of tomorrow. increase seroquel to 50 at HS for insomnia. otherwise continue current mgmt. Reason for continued inpatient stay Substantial Risk for: inability to function and rapid decompensation Time Spent With Patient Time: Total time managing care of this patient today _35___ minutes.
[2023-01-17 18:00] VITALS: BP 156/87; PULSE 84; RESP 16; TEMP 36.6; O2SAT 100
[2023-01-17] MEDS: QUEtiapine Fumarate 50 MG TABLET PO (22:03)
[2023-01-17] MEDS: Mirtazapine 7.5 MG TABLET PO (22:03)
[2023-01-17] MEDS: hydrOXYzine HCL 25 MG TABLET PO (22:09)
[2023-01-18] MEDS: lisinopriL 40 MG TABLET PO (08:51)
[2023-01-18] MEDS: buPROPion HCl XL 300 MG TAB.ER.24H PO (08:51)
[2023-01-18] MEDS: amLODIPine Besylate 10 MG TABLET PO (08:52)
[2023-01-18 11:14] VITALS: BP 177/86; PULSE 70; RESP 20; TEMP 36.6; O2SAT 99
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
[2023-01-18 21:17] VITALS: BP 180/97; PULSE 82; RESP 16; TEMP 36.6; O2SAT 97
[2023-01-18] MEDS: Mirtazapine 7.5 MG TABLET PO ×2 (21:17)
[2023-01-18] MEDS: hydrOXYzine HCL 25 MG TABLET PO (21:17)
[2023-01-18] MEDS: QUEtiapine Fumarate 50 MG TABLET PO (21:17)
[2023-01-19] MEDS: amLODIPine Besylate 10 MG TABLET PO (08:15)
[2023-01-19] MEDS: buPROPion HCl XL 300 MG TAB.ER.24H PO (08:15)
[2023-01-19] MEDS: lisinopriL 40 MG TABLET PO (08:15)
[2023-01-19 12:27] VITALS: BP 179/90; PULSE 90; RESP 20; TEMP 36.6; O2SAT 99
== END 2023-01-19 13:15 | disposition home or self-care (01) | DRG 881 ==
LOC: HO.ED 15:21 → HO.PADLT16 01-11 15:22
PROVIDERS: Physician Assistant Medical; Admitting Provider Psychiatry & Neurology Psychiatry; Emergency Provider Emergency Medicine; Visit Provider Psychiatry & Neurology Psychiatry
DX: F32.A Depression, unspecified (principal); R45.851 Suicidal ideations; F16.10 Hallucinogen abuse, uncomplicated; F14.10 Cocaine abuse, uncomplicated; Z59.02 Unsheltered homelessness; F19.14 Other psychoactive substance abuse with psychoactive substance-induced mood disorder; F17.210 Nicotine dependence, cigarettes, uncomplicated; Z71.6 Tobacco abuse counseling; Z20.822 Contact with and (suspected) exposure to COVID-19
CPT/HCPCS: 36415; 80053; 80061; 80143; 80179; 80307; 81001; 82607; 82746; 83036; 84439; 84443; 85025; 87635; 93005; 99285; S9485

== ENCOUNTER → 2023-01-10 14:41 | Outpatient (BNV) | payer MEDICARE, MEDICAID, SELFPAY | PROVIDERS: Emergency Provider Emergency Medicine; Visit Provider Internal Medicine Cardiovascular Disease | DX: I49.9 Cardiac arrhythmia, unspecified (principal) | CPT/HCPCS: 93010 ==

== ENCOUNTER → 2023-01-11 15:14 | Outpatient (BNV) | payer MEDICARE, MEDICAID, SELFPAY | PROVIDERS: Admitting Provider Psychiatry & Neurology Psychiatry; Emergency Provider Emergency Medicine; Visit Provider Psychiatry & Neurology Psychiatry | DX: F33.3 Major depressive disorder, recurrent, severe with psychotic symptoms (principal); F16.10 Hallucinogen abuse, uncomplicated; F14.10 Cocaine abuse, uncomplicated | CPT/HCPCS: 90792; 99231; 99232; 99238 ==

== ENCOUNTER → 2023-01-11 15:14 | Outpatient (BNV) | payer MEDICARE, MEDICAID, SELFPAY | PROVIDERS: Admitting Provider Psychiatry & Neurology Psychiatry; Emergency Provider Emergency Medicine; Visit Provider Psychiatry & Neurology Psychiatry | DX: F33.3 Major depressive disorder, recurrent, severe with psychotic symptoms (principal); F16.10 Hallucinogen abuse, uncomplicated; F14.10 Cocaine abuse, uncomplicated | CPT/HCPCS: 99231; 99232 ==

== ENCOUNTER 2023-01-21 11:30 | Emergency (ER) | payer MEDICARE, MEDICAID, SELFPAY ==
[2023-01-21 11:34] VITALS: BP 177/102; PULSE 100; RESP 19; TEMP 36.6; O2SAT 98; BMI 31.8
--- NOTE | 2023-01-21 11:34 | ED_ITS ---
HPI - General Adult General Chief complaint: Psychiatric Symptoms Stated complaint: hearing voices Time Seen by Provider: 01/21/23 16:02 Source: patient, RN notes reviewed and translator and interpreter Mode of arrival: ambulatory Limitations: language barrier History of Present Illness HPI narrative: 62-year-old male with past medical history significant for depression, polysubstance abuse presents for evaluation of suicidal ideation. Patient reports through interpreting staff that he is having suicidal thoughts. He reports having ?issues with my and daughter. ? He also reports being homeless He reports that he does not want to leave any more He reports he was just admitted to [facility] and ?they just kicked me out and threw me on the street without any medications. ? He is unhappy with how he was treated Related Data Home Medications Medication Instructions Recorded Confirmed No Known Home Meds 01/21/23 01/21/23 Allergies Allergy/AdvReac Type Severity Reaction Status Date / Time shellfish derived Allergy Unknown Verified 01/17/23 19:17 Review of Systems Constitutional: Constitutional: Denies chills and Denies fever(s) Cardiovascular: Cardiovascular: Denies chest pain and Denies dyspnea Respiratory: Respiratory: Denies cough and Denies dyspnea Gastrointestinal: Gastrointestinal: Denies abdominal pain, Denies nausea and Denies vomiting Musculoskeletal: Musculoskeletal: Denies back pain Psychiatric: Psychiatric: Reports depression, Reports homicidal ideation and Reports suicidal ideation PMF Past Medical History Medical History Cocaine abuse PCP abuse Psychosis Social History Social History Household Members: None Household Members Other:: Currently homeless, recently asked to leave per crisis eval Housing: Apartment Do you presently have visiting nurse or other home services: No Unable to assess alcohol history related to: Unknown Alcohol intake: never Patient Tobacco Use Status: Current someday Tobacco user Tobacco use type: Cigarette Cigarettes Per Day: 3 Second Hand Smoke Exposure: No Use of substances other than those prescribed or required for medical reasons: Yes Substance Use Type: Crack/Cocaine and Caffiene Advance Directives: No Healthcare Proxy: No Guardian: No service: No Sexual orientation: Straight/Heterosexual Physical Exam ED Vital Signs: Vital Signs - 24 hr 01/21/23 16:23 01/22/23 02:07 Temperature 97.7 F 97.6 F Pulse Rate 95 63 Respiratory Rate 20 16 Blood Pressure 140/84 H 170/84 H Pulse Oximetry 96 97 Oxygen Delivery Method Room Air Room Air BMI result Body Mass Index 31.8 Const General: healthy appearing, comfortable, no acute distress, alert and awake Nutritional Appearance: well nourished Orientation/consciousness: patient oriented x3 HENMT Head: Yes normocephalic and Yes atraumatic Eyes Eyelids: Yes eyelids normal Conjunctivae: conjunctivae normal Sclerae: sclerae normal Corneas: corneas normal Pupils: Equal, round and reactive pupils present EOM: EOMs intact bilaterally Neck Neck: Yes full ROM Resp Effort & Inspection: normal respiratory effort, able to speak in complete sentences and not labored Cardio Rate: regular rate Rhythm: regular rhythm Skin General skin exam: no rashes or lesions noted and elasticity normal Neuro General: patient oriented x3 Cranial nerves: Yes Equal, round and reactive pupils present and Yes Bilaterally intact EOM present Cognition (Neuro): normal cognition Extrem Other: Moving all extremities well without any obvious deformities Course Course Course Narrative: RME performed by Melissa Zapata PA-C. Patient is a 62 year old assigned male at presenting to the emergency department with increased hearing of voices, feeling as though he is the devil, suicidal by hanging himself, and homicidal stating he is scared he will kill his . Labs ordered. Patient placed back in the waiting room pending room availability and results. Reevaluation(s) Reevaluation #1: Physician observation continued. VS stable - BP slightly elevated no acute events overnight reported pending S12 inpatient bed search.initial BS was low but repeats have been stable. Reevaluation #2: Physician observation ended at 319pm Patient seen and cleared by CARE team and do not feel he would do well as inpatient as he did not participate in his care during recent admit. Plan is to follow up with living room. NAD, lungs clear, CV RRR, Abd nontender, Neuro intact. Disposition is for living room. Medical Decision Making Medical Decision Making [facility] Narrative: 8-year-old male presents for evaluation of suicidal ideation. He was medically cleared at this time for care team evaluation. He was noted to be positive for fentanyl and cocaine Differential Diagnosis Differential Diagnoses: The differential diagnosis associated with the presentation includes Depression Suicidal ideation Substance abuse Bipolar disorder schizoaffective disorder Lab Data [facility] Lab Attestation statement: I reviewed the patient's lab results. Patient's labs are reassuring. White count of only 8.7, normal hemoglobin hematocrit, normal platelet count. Electrolytes are normal limits. BUN just above normal at 23. Patient's glucose was low at 56 but he was fed and a repeat point of care was above 100. 01/21/23 12:49 01/21/23 12:49 Labs: Lab Results 01/21/23 01/21/23 01/21/23 Range/Units 12:49 12:49 12:50 WBC 8.7 (4.8-10.8) X10*3/uL RBC 5.33 (4.60-5.80) X10*6/uL Hgb 15.6 (14.0-18.0) g/dl Hct 45.9 (42.0-52.0) % MCV 86.1 (80.0-98.0) fL MCH 29.3 (27.0-33.0) pg MCHC 34.0 (31.0-36.0) g/dl RDW 14.0 (11.0-16.0) % Plt Count 254 (160-400) X10*3/uL MPV 9.3 L (9.4-12.4) fL Immature Gran % (Auto) 0.5 H (0.0-0.4) % Neut % (Auto) 65.5 (45-73) % Lymph % (Auto) 24.5 (20-40) % Green % (Auto) 8.2 (2-11) % Eos % (Auto) 1.0 (0-4) % Baso % (Auto) 0.3 (0-2) % Lymph # (Auto) 2.1 (1.2-4.9) X10*3/uL Green # (Auto) 0.7 (0.1-1.2) X10*3/uL Eos # (Auto) 0.1 (0.0-0.4) X10*3/uL Baso # (Auto) 0.0 (0.0-0.2) X10*3/uL Abs Immat Gran (auto) 0.04 H (0.00-0.03) X10*3/uL Absolute Neuts (auto) 5.7 (2.0-8.3) x10*3/uL Absolute Nucleated RBC 0.000 (0.0-0.012) X10*3/uL Nucleated RBC % (auto) 0.0 (0.0-0.2) /100WBC Sodium 139 (135-145) mmol/L Potassium 4.5 (3.3-5.1) mmol/L Chloride 101 (96-108) mmol/L Carbon Dioxide 28 (22-29) mmol/L Anion Gap 15 (12-20) BUN 23 H (9-16) mg/dL Creatinine 1.05 (0.5-1.4) mg/dL Estim Creat Clear Calc 83.6 Estimated GFR > 60 POC Glucose (60-115) mg/dL Random Glucose 56 L* (60-115) mg/dL Calcium 9.5 (8.4-10.2) mg/dL Total Bilirubin 1.0 (0.0-1.0) mg/dL AST 90 H (5-37) U/L ALT 58 H (0-40) U/L Alkaline Phosphatase 84 (39-117) U/L Total Protein 7.7 (6.5-8.0) g/dL Albumin 4.1 (3.5-5.0) g/dL Urine Color Urine Appearance Urine pH (5.0-9.0) Ur Specific [place] (1.005-1.025) Urine Protein (Neg-Trace) mg/dL Urine Glucose (UA) (Negative) mg/dL Urine Ketones (Negative) mg/dL Urine Blood (Negative) Urine Nitrite (Negative) Ur Leukocyte Esterase (Negative) Salicylates (15-30) mg/dL Urine Opiates Screen (Not Detect) Urine Fentanyl Screen (Not Detect) Acetaminophen (<30) mcg/mL Ur Barbiturates Screen (Not Detect) Ur Phencyclidine Scrn (Not Detect) Ur Amphetamines Screen (Not Detect) U Benzodiazepines Scrn (Not Detect) Urine Cocaine Screen (Not Detect) U Marijuana (THC) Screen (Not Detect) Ethyl Alcohol < 10 mg/dL COVID-19 (BRIAN) Negative (Negative) COVID-19 Clin Com See Note 01/21/23 01/21/23 01/21/23 Range/Units 12:50 12:50 12:50 WBC (4.8-10.8) X10*3/uL RBC (4.60-5.80) X10*6/uL Hgb (14.0-18.0) g/dl Hct (42.0-52.0) % MCV (80.0-98.0) fL MCH (27.0-33.0) pg MCHC (31.0-36.0) g/dl RDW (11.0-16.0) % Plt Count (160-400) X10*3/uL MPV (9.4-12.4) fL Immature Gran % (Auto) (0.0-0.4) % Neut % (Auto) (45-73) % Lymph % (Auto) (20-40) % Green % (Auto) (2-11) % Eos % (Auto) (0-4) % Baso % (Auto) (0-2) % Lymph # (Auto) (1.2-4.9) X10*3/uL Green # (Auto) (0.1-1.2) X10*3/uL Eos # (Auto) (0.0-0.4) X10*3/uL Baso # (Auto) (0.0-0.2) X10*3/uL Abs Immat Gran (auto) (0.00-0.03) X10*3/uL Absolute Neuts (auto) (2.0-8.3) x10*3/uL Absolute Nucleated RBC (0.0-0.012) X10*3/uL Nucleated RBC % (auto) (0.0-0.2) /100WBC Sodium (135-145) mmol/L Potassium (3.3-5.1) mmol/L Chloride (96-108) mmol/L Carbon Dioxide (22-29) mmol/L Anion Gap (12-20) BUN (9-16) mg/dL Creatinine (0.5-1.4) mg/dL Estim Creat Clear Calc Estimated GFR POC Glucose (60-115) mg/dL Random Glucose (60-115) mg/dL Calcium (8.4-10.2) mg/dL Total Bilirubin (0.0-1.0) mg/dL AST (5-37) U/L ALT (0-40) U/L Alkaline Phosphatase (39-117) U/L Total Protein (6.5-8.0) g/dL Albumin (3.5-5.0) g/dL Urine Color Yellow Urine Appearance Clear Urine pH 6.5 (5.0-9.0) Ur Specific [place] 1.025 (1.005-1.025) Urine Protein Trace (Neg-Trace) mg/dL Urine Glucose (UA) Negative (Negative) mg/dL Urine Ketones Negative (Negative) mg/dL Urine Blood Negative (Negative) Urine Nitrite Negative (Negative) Ur Leukocyte Esterase Negative (Negative) Salicylates < 5.0 L (15-30) mg/dL Urine Opiates Screen Not Detected (Not Detect) Urine Fentanyl Screen POSITIVE H (Not Detect) Acetaminophen < 17 (<30) mcg/mL Ur Barbiturates Screen Not Detected (Not Detect) Ur Phencyclidine Scrn Not Detected (Not Detect) Ur Amphetamines Screen Not Detected (Not Detect) U Benzodiazepines Scrn Not Detected (Not Detect) Urine Cocaine Screen POSITIVE H (Not Detect) U Marijuana (THC) Screen Not Detected (Not Detect) Ethyl Alcohol mg/dL COVID-19 (BRIAN) (Negative) COVID-19 Clin Com 01/21/23 01/21/23 Range/Units 14:19 21:17 WBC (4.8-10.8) X10*3/uL RBC (4.60-5.80) X10*6/uL Hgb (14.0-18.0) g/dl Hct (42.0-52.0) % MCV (80.0-98.0) fL MCH (27.0-33.0) pg MCHC (31.0-36.0) g/dl RDW (11.0-16.0) % Plt Count (160-400) X10*3/uL MPV (9.4-12.4) fL Immature Gran % (Auto) (0.0-0.4) % Neut % (Auto) (45-73) % Lymph % (Auto) (20-40) % Green % (Auto) (2-11) % Eos % (Auto) (0-4) % Baso % (Auto) (0-2) % Lymph # (Auto) (1.2-4.9) X10*3/uL Green # (Auto) (0.1-1.2) X10*3/uL Eos # (Auto) (0.0-0.4) X10*3/uL Baso # (Auto) (0.0-0.2) X10*3/uL Abs Immat Gran (auto) (0.00-0.03) X10*3/uL Absolute Neuts (auto) (2.0-8.3) x10*3/uL Absolute Nucleated RBC (0.0-0.012) X10*3/uL Nucleated RBC % (auto) (0.0-0.2) /100WBC Sodium (135-145) mmol/L Potassium (3.3-5.1) mmol/L Chloride (96-108) mmol/L Carbon Dioxide (22-29) mmol/L Anion Gap (12-20) BUN (9-16) mg/dL Creatinine (0.5-1.4) mg/dL Estim Creat Clear Calc Estimated GFR POC Glucose 146 H 169 H (60-115) mg/dL Random Glucose (60-115) mg/dL Calcium (8.4-10.2) mg/dL Total Bilirubin (0.0-1.0) mg/dL AST (5-37) U/L ALT (0-40) U/L Alkaline Phosphatase (39-117) U/L Total Protein (6.5-8.0) g/dL Albumin (3.5-5.0) g/dL Urine Color Urine Appearance Urine pH (5.0-9.0) Ur Specific [place] (1.005-1.025) Urine Protein (Neg-Trace) mg/dL Urine Glucose (UA) (Negative) mg/dL Urine Ketones (Negative) mg/dL Urine Blood (Negative) Urine Nitrite (Negative) Ur Leukocyte Esterase (Negative) Salicylates (15-30) mg/dL Urine Opiates Screen (Not Detect) Urine Fentanyl Screen (Not Detect) Acetaminophen (<30) mcg/mL Ur Barbiturates Screen (Not Detect) Ur Phencyclidine Scrn (Not Detect) Ur Amphetamines Screen (Not Detect) U Benzodiazepines Scrn (Not Detect) Urine Cocaine Screen (Not Detect) U Marijuana (THC) Screen (Not Detect) Ethyl Alcohol mg/dL COVID-19 (BRIAN) (Negative) COVID-19 Clin Com Discharge Plan Discharge Clinical Impression: Depressive disorder, Cocaine abuse Patient Disposition: Home, Self-Care Instructions: Depression (ED), Cocaine Abuse (ED) Additional Instructions: return for worsening symptoms or thoughts of self harm national hotline is 988 for self harm Prescriptions: No Action No Known Home Meds Interventions: [facility] [place]-Suicide Risk Severity Scale Last Done: 01/22/23 13:04
--- NOTE | 2023-01-21 11:36 | ECG_ITS ---
Test Reason : cocaine abuse Blood Pressure : / mmHG Vent. Rate : 090 BPM Atrial Rate : 090 BPM P-R Int : 166 ms QRS Dur : 078 ms QT Int : 374 ms P-R-T Axes : 042 036 065 degrees QTc Int : 457 ms Normal sinus rhythm Normal ECG When compared with ECG of 10-JAN-2023 16:31, Nonspecific T wave abnormality, improved in Anterolateral leads QT has lengthened Referred By: Melissa Zapata Electronically Signed By:DESHAWN FLANAGAN
[2023-01-21 13:03] LABS: MANUAL DIFF FLAG NO
[2023-01-21 13:04] LABS: Basophils Percent Auto 0.3 % (0-2); Eosinophils Absolute Auto 0.1 X10*3/uL (0.0-0.4); Hematocrit 45.9 % (42.0-52.0); Hemoglobin 15.6 g/dl (14.0-18.0); Imm Gran Abs Auto 0.04 X10*3/uL (0.00-0.03); Imm Gran Pct Auto 0.5 % (0.0-0.4); Lymphocytes Absolute Auto 2.1 X10*3/uL (1.2-4.9); Lymphocytes Percent Auto 24.5 % (20-40); Mean Corpuscular Hemoglobin 29.3 pg (27.0-33.0); Mean Corpuscular Volume 86.1 fL (80.0-98.0); Mean Platelet Volume 9.3 fL (9.4-12.4); Monocytes Absolute Auto 0.7 X10*3/uL (0.1-1.2); Monocytes Percent Auto 8.2 % (2-11); Neutrophils Absolute Auto 5.7 x10*3/uL (2.0-8.3); Neutrophils Percent Auto 65.5 % (45-73); Platelet Count 254 X10*3/uL (160-400); Red Blood Count 5.33 X10*6/uL (4.60-5.80); White Blood Count 8.7 X10*3/uL (4.8-10.8)
[2023-01-21 13:14] LABS: Appearance Urine Clear; Color Urine Yellow; Glucose Urine UA Negative (Negative); Leukocyte Esterase Urine Negative (Negative); Nitrite Urine Negative (Negative); PH 6.5 (5.0-9.0); Specific Gravity - Urine 1.025 (1.005-1.025); Urine Blood Negative (Negative); Urine Ketones Negative (Negative); Urine Protein Trace mg/dL (Neg-Trace)
[2023-01-21 13:15] LABS: Amphetamine Screen Urine Not Detected (Not Detect); Barbiturates, Urine Not Detected (Not Detect); Benzodiazepines Screen Urine Not Detected (Not Detect); Cannabinoid Screen Urine Not Detected (Not Detect); Cocaine Screen Urine POSITIVE (Not Detect); Opiate Screen Urine Not Detected (Not Detect); Phencyclidine Screen Urine Not Detected (Not Detect)
[2023-01-21 13:20] LABS: COVID-19 Test Negative (Negative); IDNOW Serial# 08D9AD1C
[2023-01-21 13:27] LABS: Acetaminophen LAB < 17 mcg/mL (<30); Salicylate < 5.0 mg/dL (15-30)
[2023-01-21 13:31] LABS: Alanine Aminotransferase 58 U/L (0-40); Albumin Level 4.1 g/dL (3.5-5.0); Alkaline Phosphatase 84 U/L (39-117); Anion Gap 15 (12-20); Aspartate Amino Transferase 90 U/L (5-37); Blood Urea Nitrogen 23 mg/dL (9-16); Calcium 9.5 mg/dL (8.4-10.2); Carbon Dioxide 28 mmol/L (22-29); Chloride 101 mmol/L (96-108); Creatinine Clr Calc Pharmacy 83.6; Estimated Glomerular Filt Rate > 60; Ethanol < 10 mg/dL; Glucose Random 56 mg/dL (60-115); Potassium 4.5 mmol/L (3.3-5.1); Sodium 139 mmol/L (135-145); Total Protein 7.7 g/dL (6.5-8.0)
[2023-01-21 14:24] LABS: Glucose, Whole Blood 146 mg/dL (60-115)
[2023-01-21 16:23] VITALS: BP 140/84; PULSE 95; RESP 20; TEMP 36.5; O2SAT 96
[2023-01-21 21:21] LABS: Glucose, Whole Blood 169 mg/dL (60-115)
[2023-01-22 02:07] VITALS: BP 170/84; PULSE 63; RESP 16; TEMP 36.4; O2SAT 97
--- NOTE | 2023-01-22 05:28 | PC.NURSE ---
Patient slept through the night, no distress observed/reported, behavior non concerning, patient is currently not on any medication, care team assessed the patient, he engaged well, disposition per care team is section 12 inpatient bed search, VSS, labs completed/resulted, will continue to monitor.
--- NOTE | 2023-01-22 15:35 | MHC.CARE ---
This was familiar with patient after his admission and discharge from recently. During this admission the patient was refusing medications, refusing any and all referrals for CSS, shelters, respite, outpatient providers. He specifically stated that he wanted to stay here in the hospital until he got his check at the end of the month. He is a malingerer and was determined after discussing with provider, Pinky DELACRUZ and this conventional underwriter who is familiar with the alliance party, he did not need to be admitted to [facility]. When this conventional underwriter met with patient with financial accountant services it was explained to him he was not going to be admitted to [facility] and explained the reasons. He stated state he could not be discharged because he has no place to go. He was presented with multiple options for the Living Room or correction in [place]. He stated he couldn't go to the shelters in [place] because he was selling drugs there and people were looking for him. Then he originally stated he could not go to the Living Room because his 's family lives in the area and they are looking for him. He has a active restraining order from his . I then offered to send him to [place] if he was concerned for his safety and also provided the option of going to [facility] at the [facility] and meting with them for case management, and outpatient providers. He did not want this he stated. He was argumentative and stated that when he was upstairs on the last time, the financial accountant was changing things around that he was saying and he never said any of those things. When asked about staying until he got his check sat quietly and rolled his eyes. Patient was attempting to cry but there were no tears as he continued to try and persuade an admission. Patient agreed to go to the Living Room and asked how we would send him. This conventional underwriter told him he would be provided a ride by [facility]. He was agreeable to this.
[2023-01-23 12:49] LABS: Fentanyl, urine SEE COMMENTS (Not Detect)
[2023-02-11 12:34] LABS: Fentanyl, Ur NEGATIVE
== END 2023-01-22 15:42 | disposition home or self-care (01) ==
PROVIDERS: Physician Assistant Medical; Emergency Provider Emergency Medicine
DX: F32.A Depression, unspecified (principal); F14.10 Cocaine abuse, uncomplicated; E16.2 Hypoglycemia, unspecified; R45.851 Suicidal ideations; R45.850 Homicidal ideations; Z20.822 Contact with and (suspected) exposure to COVID-19; F19.10 Other psychoactive substance abuse, uncomplicated; F17.210 Nicotine dependence, cigarettes, uncomplicated
CPT/HCPCS: 80053; 80143; 80179; 80307; 80354; 81003; 82947; 85025; 87635; 93005; 99285; S9485

== ENCOUNTER 2023-04-14 12:04 | Emergency (ER) | payer MEDICARE, MEDICAID, SELFPAY ==
[2023-04-14 12:08] VITALS: BP 183/118; PULSE 72; RESP 18; TEMP 36.3; O2SAT 98; BMI 34.1
--- NOTE | 2023-04-14 12:09 | ED_ITS ---
HPI - General Adult General Chief complaint: General Medical Stated complaint: Blood tests needed (?) Time Seen by Provider: 04/14/23 14:02 Source: patient Mode of arrival: ambulatory Limitations: no limitations History of Present Illness HPI narrative: 62 yold male presents to the ED for utox as required by DCF. Patient is asymptomatic. Patient denies any recent drug use. Related Data Home Medications Medication Instructions Recorded Confirmed No Known Home Meds 01/21/23 01/21/23 Allergies Allergy/AdvReac Type Severity Reaction Status Date / Time shellfish derived Allergy Unknown Verified 04/14/23 12:07 Review of Systems 2 Review of Systems: DCF wants detox Yes all other systems are reviewed and are negative [facility] Past Medical History Medical History Cocaine abuse PCP abuse Psychosis Social History Social History Household Members: None Household Members Other:: Currently homeless, recently asked to leave per crisis eval Housing: Apartment Do you presently have visiting nurse or other home services: No Unable to assess alcohol history related to: Unknown Alcohol intake: never Patient Tobacco Use Status: Current someday Tobacco user Tobacco use type: Cigarette Cigarettes Per Day: 3 Second Hand Smoke Exposure: No Substance Use Type: Crack/Cocaine and Caffiene Advance Directives: No service: No Sexual orientation: Straight/Heterosexual Physical Exam ED Vital Signs: Vital Signs - 24 hr 04/14/23 12:08 Temperature 97.3 F Pulse Rate 72 Respiratory Rate 18 Blood Pressure 183/118 H Pulse Oximetry 98 Oxygen Delivery Method Room Air BMI result Body Mass Index 34.1 Const General: cooperative, healthy appearing, comfortable, no acute distress, well developed, alert and awake Orientation/consciousness: oriented to person, oriented to place, oriented to time and patient oriented x3 HENMT Head: Yes normal to inspection, Yes No palpable skull fracture present, Yes normocephalic and Yes atraumatic Eyes General: appearance normal, both eyes and all related structures Neck Neck: Yes normal visual inspection, Yes full ROM, Yes no lymphadenopathy, Yes no meningeal signs, Yes trachea midline, Yes supple, No anterior neck swelling and No tender Chest Chest palpation & inspection: normal inspection of the chest and normal palpation of entire chest wall Resp Effort & Inspection: normal respiratory effort and able to speak in complete sentences Auscultation: clear to auscultation bilaterally Cardio Jugular venous distension: no JVD Heart sounds: S1 normal heart sound present and S2 normal heart sound present GI Inspection: Yes normal to inspection and No abdominal wall ecchymosis Palpation (GI): Soft to palpation, not firm, nontender, no guarding and not rigid General: Yes no CVA tenderness Back/Spine/Pelvis Back: no CVA tenderness and No back tenderness Skin General skin exam: no rashes or lesions noted, elasticity normal and turgor normal Neuro General: oriented to person, oriented to place, oriented to time, patient oriented x3, gait normal, tone normal, moves all extremities, Normal light touch and pain sensation, no meningeal signs and no focal motor deficits Extrem General: Yes normal to inspection, Yes full ROM and Yes capillary refill normal Psych Appearance: grossly normal, well kempt and not disheveled Course Course Course Narrative: RME: 62 yold male sent from [facility] for UTox. patient states no physical complaints. Patient denies recentdrug use, but in order to live with family [facility] requesting utox. patient found to be hypertenisve without any physical compliaints. Due to elevated systolic of 184 and 174 with diastolic over 100. labs ordered and EKG including utox. neuro exam is intact Medical Decision Making Medical Decision Making MDM Narrative: 62 yold male presents to the ED for utox as required by [facility]. patient found to be hypetensive, but would like to leave. patient explained risks of stroke, OK, , and Kidney injury. Patient inforemd she would be evaluated by Main ED provider. patient still would like to be discharged. Patient instructed to follow up with PCP and record his blood pressure to show to PCP. Differential Diagnosis Differential Diagnoses: The differential diagnosis associated with the presentation includes (Stroke, OK, Hypertensive crisis, kidney injury) Admission/Observation Consideration of admission/observation: Escalation of care including admission/observation considered Lab Data [facility] Lab Attestation statement: I reviewed the patient's lab results. 04/14/23 12:49 04/14/23 12:49 Labs: Lab Results 04/14/23 Range/Units 12:49 WBC 4.8 (4.8-10.8) X10*3/uL RBC 5.11 (4.60-5.80) X10*6/uL Hgb 14.7 (14.0-18.0) g/dl Hct 43.6 (42.0-52.0) % MCV 85.3 (80.0-98.0) fL MCH 28.8 (27.0-33.0) pg MCHC 33.7 (31.0-36.0) g/dl RDW 13.4 (11.0-16.0) % Plt Count 233 (160-400) X10*3/uL MPV 9.8 (9.4-12.4) fL Immature Gran % (Auto) 0.2 (0.0-0.4) % Neut % (Auto) 60.1 (45-73) % Lymph % (Auto) 31.8 (20-40) % [place] % (Auto) 5.4 (2-11) % Eos % (Auto) 1.9 (0-4) % Baso % (Auto) 0.6 (0-2) % Lymph # (Auto) 1.5 (1.2-4.9) X10*3/uL [place] # (Auto) 0.3 (0.1-1.2) X10*3/uL Eos # (Auto) 0.1 (0.0-0.4) X10*3/uL Baso # (Auto) 0.0 (0.0-0.2) X10*3/uL Abs Immat Gran (auto) 0.01 (0.00-0.03) X10*3/uL Absolute Neuts (auto) 2.9 (2.0-8.3) x10*3/uL Absolute Nucleated RBC 0.000 (0.0-0.012) X10*3/uL Nucleated RBC % (auto) 0.0 (0.0-0.2) /100WBC PT Cancelled INR Cancelled APTT Cancelled Sodium 139 (135-145) mmol/L Potassium 3.8 (3.3-5.1) mmol/L Chloride 106 (96-108) mmol/L Carbon Dioxide 27 (22-29) mmol/L Anion Gap 10 L (12-20) BUN 15 (9-16) mg/dL Creatinine 0.82 (0.5-1.4) mg/dL Estim Creat Clear Calc 114.3 Estimated GFR > 60 Random Glucose 117 H (60-115) mg/dL Calcium 9.2 (8.4-10.2) mg/dL Total Bilirubin 0.4 (0.0-1.0) mg/dL AST 28 (5-37) U/L ALT 22 (0-40) U/L Alkaline Phosphatase 73 (39-117) U/L Troponin I High Sens < 2.7 (<3.5-35.0) ng/L Total Protein 7.7 (6.5-8.0) g/dL Albumin 4.2 (3.5-5.0) g/dL Urine Opiates Screen Not Detected (Not Detect) Urine Fentanyl Screen Not Detected (Not Detect) Ur Barbiturates Screen Not Detected (Not Detect) Ur Phencyclidine Scrn Not Detected (Not Detect) Ur Amphetamines Screen Not Detected (Not Detect) U Benzodiazepines Scrn Not Detected (Not Detect) Urine Cocaine Screen Not Detected (Not Detect) U Marijuana (THC) Screen Not Detected (Not Detect) Independent Interpretation I performed an independent interpretation of an: EKG (Normal Sinus RHythm. Negative STEMI) Independent Historian Clinical information obtained from an independent historian. History obtained from or confirmed by: Spouse and Other (Daughter) Discharge Plan Discharge Clinical Impression: Hypertension Patient Disposition: Home, Self-Care Instructions: Hypertension (ED) Additional Instructions: You were found hypertensive during ED visit. Return to the ED immeidatly for any slurred speech, facial droop, headcahe, chest pain, shortness of breath, paralysis of exremties, loss of vision, or any other concerning symptoms. Please follow up with Your PCP tormorrow. Document your blood pressure every 4 hours to show to your PCP. Prescriptions: No Action No Known Home Meds Interventions: ED Discharge Assessment Last Done: 04/14/23 14:14 Discharge Date/Time: 04/14/23 14:15 Print Language: Urdu
--- NOTE | 2023-04-14 12:11 | ECG_ITS ---
Test Reason : HIGH BLOOD PRESSURE Blood Pressure : / mmHG Vent. Rate : 061 BPM Atrial Rate : 061 BPM P-R Int : 174 ms QRS Dur : 082 ms QT Int : 380 ms P-R-T Axes : 022 014 077 degrees QTc Int : 382 ms Normal sinus rhythm with sinus arrhythmia Nonspecific T wave abnormality Lateral leads Abnormal ECG When compared with ECG of 21-JAN-2023 13:07, Nonspecific T wave abnormality, worse in Lateral leads QT has shortened Heart rate has decreased Referred By: Onel Villanueva Electronically Signed By:MARI MERCER MD
[2023-04-14 12:59] LABS: MANUAL DIFF FLAG NO
[2023-04-14 13:04] LABS: Basophils Percent Auto 0.6 % (0-2); Eosinophils Absolute Auto 0.1 X10*3/uL (0.0-0.4); Eosinophils Percent Auto 1.9 % (0-4); Hematocrit 43.6 % (42.0-52.0); Hemoglobin 14.7 g/dl (14.0-18.0); Imm Gran Abs Auto 0.01 X10*3/uL (0.00-0.03); Imm Gran Pct Auto 0.2 % (0.0-0.4); Lymphocytes Absolute Auto 1.5 X10*3/uL (1.2-4.9); Lymphocytes Percent Auto 31.8 % (20-40); Mean Corpuscular HGB Conc 33.7 g/dl (31.0-36.0); Mean Corpuscular Hemoglobin 28.8 pg (27.0-33.0); Mean Corpuscular Volume 85.3 fL (80.0-98.0); Mean Platelet Volume 9.8 fL (9.4-12.4); Monocytes Absolute Auto 0.3 X10*3/uL (0.1-1.2); Monocytes Percent Auto 5.4 % (2-11); Neutrophils Absolute Auto 2.9 x10*3/uL (2.0-8.3); Neutrophils Percent Auto 60.1 % (45-73); Platelet Count 233 X10*3/uL (160-400); Red Blood Count 5.11 X10*6/uL (4.60-5.80); Red Cell Distribution Width 13.4 % (11.0-16.0); White Blood Count 4.8 X10*3/uL (4.8-10.8)
[2023-04-14 13:10] LABS: Amphetamine Screen Urine Not Detected (Not Detect); Barbiturates, Urine Not Detected (Not Detect); Benzodiazepines Screen Urine Not Detected (Not Detect); Cannabinoid Screen Urine Not Detected (Not Detect); Cocaine Screen Urine Not Detected (Not Detect); Fentanyl, urine Not Detected (Not Detect); Opiate Screen Urine Not Detected (Not Detect); Phencyclidine Screen Urine Not Detected (Not Detect)
[2023-04-14 13:16] LABS: Alanine Aminotransferase 22 U/L (0-40); Albumin Level 4.2 g/dL (3.5-5.0); Alkaline Phosphatase 73 U/L (39-117); Anion Gap 10 (12-20); Aspartate Amino Transferase 28 U/L (5-37); Bilirubin Total 0.4 mg/dL (0.0-1.0); Blood Urea Nitrogen 15 mg/dL (9-16); Calcium 9.2 mg/dL (8.4-10.2); Carbon Dioxide 27 mmol/L (22-29); Chloride 106 mmol/L (96-108); Creatinine Clr Calc Pharmacy 114.3; Estimated Glomerular Filt Rate > 60; Glucose Random 117 mg/dL (60-115); Potassium 3.8 mmol/L (3.3-5.1); Sodium 139 mmol/L (135-145); Total Protein 7.7 g/dL (6.5-8.0)
[2023-04-14 13:25] LABS: Troponin-I High Sensitivity < 2.7 ng/L (<3.5-35.0)
--- NOTE | 2023-04-14 14:09 | PC.NURSE ---
pt wishing to discharge and follow up with pcp for htn, pt wasnt here initially for htn and was found this way upon triage. pt has an appt with dcf in [place] this afternoon and needs to leave by 1430 to get to the appt on time with the drug tox results he came here for. pt discharging from triage.
== END 2023-04-14 14:15 | disposition home or self-care (01) ==
PROVIDERS: Physician Assistant; Emergency Provider Student in an Organized Health Care Education/Training Program
DX: Z02.83 Encounter for blood-alcohol and blood-drug test (principal); I10 Essential (primary) hypertension; F16.10 Hallucinogen abuse, uncomplicated; F14.10 Cocaine abuse, uncomplicated; F17.210 Nicotine dependence, cigarettes, uncomplicated
CPT/HCPCS: 36415; 80053; 80307; 84484; 85025; 85610; 85730; 93005; 99283

== ENCOUNTER 2023-05-11 09:43 | Outpatient (REF) | payer MEDICARE, MEDICAID, SELFPAY ==
[2023-05-11 11:41] LABS: Estimated Average Glucose 134 mg/dL; Hemoglobin A1c % 6.3 % (<6.0)
[2023-05-11 11:58] LABS: Alanine Aminotransferase 22 U/L (0-40); Albumin Level 4.1 g/dL (3.5-5.0); Alkaline Phosphatase 84 U/L (39-117); Anion Gap 13 (12-20); Aspartate Amino Transferase 28 U/L (5-37); Bilirubin Total 0.5 mg/dL (0.0-1.0); Blood Urea Nitrogen 20 mg/dL (9-16); Calcium 9.7 mg/dL (8.4-10.2); Carbon Dioxide 28 mmol/L (22-29); Chloride 104 mmol/L (96-108); Estimated Glomerular Filt Rate > 60; Glucose Random 104 mg/dL (60-115); Potassium 4.1 mmol/L (3.3-5.1); Sodium 141 mmol/L (135-145); Total Protein 8.1 g/dL (6.5-8.0)
[2023-05-11 12:04] LABS: HIV AB/AG Nonreactive (Nonreactive); HIV Num 1 0.04 S/CO (0.00-0.99); ~Hepatitis C Antibody Nonreactive (Nonreactive)
== END 2023-05-11 09:44 | disposition home or self-care (01) ==
LOC: HO.HHCL 09:43
PROVIDERS: Visit Provider General Practice
DX: Z13.89 Encounter for screening for other disorder (principal)
CPT/HCPCS: 36415; 80053; 83036; 86803; 87389

== ENCOUNTER 2023-05-11 10:38 | Emergency (ER) | payer MEDICARE, MEDICAID, SELFPAY | END 2023-05-11 14:39 | disposition left against medical advice (07) | PROVIDERS: Emergency Provider Emergency Medicine | DX: Z02.79 Encounter for issue of other medical certificate (principal); Z53.21 Procedure and treatment not carried out due to patient leaving prior to being seen by health care provider ==

== ENCOUNTER 2023-05-11 12:42 | Emergency (ER) | payer MEDICARE, MEDICAID, SELFPAY ==
[2023-05-11 13:53] VITALS: BP 174/97; PULSE 69; RESP 18; TEMP 37.2; O2SAT 96; BMI 35.0
--- NOTE | 2023-05-11 13:54 | ED.GENADULT ---
HPI - General Adult General Chief complaint: Medical Clearance Stated complaint: Med Clearance Per DSS Time Seen by Provider: 05/11/23 14:34 Source: patient and RN notes reviewed Mode of arrival: ambulatory Limitations: no limitations History of Present Illness HPI narrative: This is a 62-year-old male presenting to the emergency department for urine drug screen for DSS. He has no current complaints, he is feeling well. No other complaints or concerns at this time. MD complaint: Urine drug screen Relieving factors: none Exacerbating factors: none Associated symptoms: denies other symptoms Treatments prior to arrival: none Related Data Home Medications Medication Instructions Recorded Confirmed No Known Home Meds 01/21/23 01/21/23 Allergies Allergy/AdvReac Type Severity Reaction Status Date / Time shellfish derived Allergy Unknown Verified 04/14/23 12:07 Review of Systems Review of Systems: Yes all other systems are reviewed and are negative FOR[facility]LY [facility], [facility] Past Medical History Attestation statement: The following information was validated with the patient. Medical History Cocaine abuse PCP abuse Psychosis Social History Social History Household Members: None Household Members Other:: Currently homeless, recently asked to leave per crisis eval Housing: Apartment Do you presently have visiting nurse or other home services: No Unable to assess alcohol history related to: Unknown Alcohol intake: never Patient Tobacco Use Status: Current someday Tobacco user Tobacco use type: Cigarette Cigarettes Per Day: 3 Second Hand Smoke Exposure: No Substance Use Type: Crack/Cocaine and Caffiene service: No Sexual orientation: Straight/Heterosexual Physical Exam ED Vital Signs: Vital Signs - 24 hr 05/11/23 13:53 Temperature 98.9 F Pulse Rate 69 Respiratory Rate 18 Blood Pressure 174/97 H Pulse Oximetry 96 Oxygen Delivery Method Room Air BMI result Body Mass Index 35.0 Const Other: General: Awake, alert, and oriented X3. No acute distress. HEENT: Normal inspection CVS: Normal heart rate and rhythm. Pulses normal. Respiratory: No respiratory distress Skin: Warm, dry, no rashes noted to exposed skin. Normal skin color. Normal skin turgor. Extremities: Normal to inspection Neuro: Oriented X 3. No motor deficit. No sensory deficit. Medical Decision Making Medical Decision Making MDM Narrative: This is a 62-year-old male presenting to the emergency department for urine drug screen for DSS. He has no current complaints. Vital signs stable. Urine sample was provided, negative for drugs. Discussed results with patient. Patient stable for discharge. Differential Diagnosis Differential Diagnoses: The differential diagnosis associated with the presentation includes Urine drug screen, wellness exam, polysubstance abuse, depression Lab Data MDM Lab Attestation statement: I reviewed the patient's lab results. Negative Labs: Lab Results 05/11/23 Range/Units 14:14 Urine Opiates Screen Not Detected (Not Detect) Urine Fentanyl Screen Not Detected (Not Detect) Ur Barbiturates Screen Not Detected (Not Detect) Ur Phencyclidine Scrn Not Detected (Not Detect) Ur Amphetamines Screen Not Detected (Not Detect) U Benzodiazepines Scrn Not Detected (Not Detect) Urine Cocaine Screen Not Detected (Not Detect) U Marijuana (THC) Screen Not Detected (Not Detect) Discharge Plan Discharge Clinical Impression: Encounter for drug screening Patient Disposition: Home, Self-Care Additional Instructions: You had a negative urine drug screen today. You tested negative for opiates, fentanyl, barbiturates, PCP, amphetamines, benzodiazepines, cocaine, THC. If you have any questions or concerns, please return for re-evaluation. Follow-up with your primary care physician. Tuviste un an?lisis de drogas en orina negativo hoy. Casey negativo en opi?ceos, fentanilo, barbit?ricos, PCP, anfetaminas, benzodiazepinas, coca?na y THC. Si tiene alguna pregunta o inquietud, regrese para phil reevaluaci?n. Seguimiento con garner m?dico de atenci?n primaria. Prescriptions: No Action No Known Home Meds
[2023-05-11 14:30] LABS: Amphetamine Screen Urine Not Detected (Not Detect); Barbiturates, Urine Not Detected (Not Detect); Benzodiazepines Screen Urine Not Detected (Not Detect); Cannabinoid Screen Urine Not Detected (Not Detect); Cocaine Screen Urine Not Detected (Not Detect); Fentanyl, urine Not Detected (Not Detect); Opiate Screen Urine Not Detected (Not Detect); Phencyclidine Screen Urine Not Detected (Not Detect)
== END 2023-05-11 15:39 | disposition home or self-care (01) ==
LOC: HO.ED 15:06
PROVIDERS: Physician Assistant Medical; Emergency Provider Emergency Medicine Emergency Medical Services
DX: Z02.83 Encounter for blood-alcohol and blood-drug test (principal)
CPT/HCPCS: 36415; 80053; 80307; 83036; 86803; 87389; 99282; 99283

== ENCOUNTER 2023-05-12 08:22 | Outpatient (REF) | payer MEDICARE, MEDICAID, SELFPAY ==
[2023-05-12 12:01] LABS: Cholesterol 194 mg/dL (<200); HDL Cholesterol 48 mg/dL (>40); LDL Cholesterol Calculated 133 mg/dL (<100); Triglycerides 66 mg/dL (<150)
== END 2023-05-12 08:23 | disposition home or self-care (01) ==
LOC: HO.HHCL 08:22
PROVIDERS: Visit Provider General Practice
DX: R73.03 Prediabetes (principal); E78.2 Mixed hyperlipidemia
CPT/HCPCS: 36415; 80061

== ENCOUNTER 2023-06-10 14:31 | Emergency (ER) | payer MEDICARE, MEDICAID, SELFPAY ==
[2023-06-10 15:23] VITALS: BP 159/90; PULSE 68; RESP 18; TEMP 36.2; O2SAT 98; BMI 34.4
== END 2023-06-10 17:09 | disposition left against medical advice (07) ==
LOC: HO.ED 17:08
PROVIDERS: Emergency Provider Emergency Medicine
DX: Z02.83 Encounter for blood-alcohol and blood-drug test (principal); Z79.899 Other long term (current) drug therapy
CPT/HCPCS: 80307; 99282; 99283

== ENCOUNTER 2023-06-13 10:36 | Emergency (ER) | payer MEDICARE, MEDICAID, SELFPAY ==
[2023-06-13 11:03] VITALS: BP 168/93; PULSE 76; RESP 18; TEMP 36.8; O2SAT 98; BMI 35.2
--- NOTE | 2023-06-13 11:08 | ED.GENADULT ---
HPI - General Adult General Chief complaint: Medical Clearance Stated complaint: Medical clearance Time Seen by Provider: 06/13/23 11:11 Source: patient and automobile service writer Mode of arrival: ambulatory Limitations: language barrier History of Present Illness HPI narrative: Patient is a 62 year old assigned male at with a history of cocaine abuse presenting to the emergency department today for a drug test. Patient states that he was seen here on 06/10/2023 for a drug test for DCF and he left before he could get results printed. Patient states that all he needs is his results printed. Patient denies any dizziness, lightheadedness, abdominal pain, nausea, vomiting, fever, chills, blurry vision, double vision, loss of vision, chest pain, difficulty breathing, shortness of breath, back pain, night sweats, pain with urination, increased urinary frequency, increased urinary urgency, blood in his urine or stool, syncope or a near syncopal episode, recent trauma or falls, bowel incontinence, bladder incontinence, bowel retention, bladder retention, or any other complaints at this time. Relieving factors: none Exacerbating factors: none Associated symptoms: denies other symptoms Treatments prior to arrival: none Related Data Home Medications Medication Instructions Recorded Confirmed No Known Home Meds 01/21/23 01/21/23 Allergies Allergy/AdvReac Type Severity Reaction Status Date / Time shellfish derived Allergy Unknown Verified 06/13/23 11:08 Review of Systems Constitutional: Constitutional: Reports no additional constitutional complaints, Denies chills, Denies fever(s) and Denies night sweats Eyes: Eyes: Reports no additional eye complaints, Denies blurry vision, Denies change in vision, Denies diplopia, Denies eye discharge, Denies loss of vision and Denies eye pain ENT: Denies dizziness Cardiovascular: Cardiovascular: Reports no additional cardiovascular complaints, Denies chest pain, Denies lightheadedness, Denies Loss of Consciousness and Denies dyspnea Respiratory: Respiratory: Reports no additional respiratory complaints and Denies dyspnea Gastrointestinal: Gastrointestinal: Reports no additional gastrointestinal complaints, Denies abdominal pain, Denies melena, Denies hematochezia, Denies change in bowel habits and Denies change in stool character Genitourinary: Genitourinary: Reports no additional male genitourinary complaints, Denies hematuria, Denies oliguria, Denies difficulty urinating, Denies dysuria, Denies urinary frequency, Denies urinary hesitancy, Denies urinary incontinence and Denies urinary urgency Musculoskeletal: Musculoskeletal: Reports no additional musculoskeletal complaints, Denies numbness and Denies tingling Neurologic: Denies dizziness, Denies loss of vision, Denies numbness and Denies tingling Psychiatric: Psychiatric: Reports no additional psychiatric complaints Endocrine: Endocrine: Reports no additional endocrine complaints Hematologic/Lymphatic: Hematologic/Lymphatic: Reports no additional hematologic/lymphatic complaints Allergic/Immunologic: Allergic/Immunologic: Reports no additional allergic/immunologic complaints PMFSH Past Medical History Attestation statement: The following information was validated with the patient. Source: old records reviewed and nursing notes reviewed Onset Date is defined in the Problem List Problems that require an onset date and time if occurred within 24 hrs of arrival to the ED Aortic Dissection and Rupture; Neurologic impairment; Cardiopulmonary Arrest; Endotracheal Intubation; Insertion or Replacement of Mechanical Circulatory Assist Device Medical History Cocaine abuse PCP abuse Psychosis Social History Social History Household Members: None Household Members Other:: Currently homeless, recently asked to leave per crisis eval Housing: Apartment Do you presently have visiting nurse or other home services: No Unable to assess alcohol history related to: Unknown Alcohol intake: never Patient Tobacco Use Status: Current someday Tobacco user Tobacco use type: Cigarette Cigarettes Per Day: 3 Second Hand Smoke Exposure: No Substance Use Type: Crack/Cocaine and Caffiene Advance Directives: No service: No Sexual orientation: Straight/Heterosexual Physical Exam ED Vital Signs: Vital Signs - 24 hr 06/13/23 11:03 Temperature 98.3 F Pulse Rate 76 Respiratory Rate 18 Blood Pressure 168/93 H Pulse Oximetry 98 Oxygen Delivery Method Room Air BMI result Body Mass Index 35.2 Const General: cooperative, no acute distress, alert and awake Nutritional Appearance: well nourished Orientation/consciousness: patient oriented x3 Limitations: no limitations HENMT Head: Yes normal to inspection and Yes atraumatic Ears: hearing grossly normal bilaterally and external ears normal General nose exam: Normal external nose present, no nasal discharge noted and no epistaxis Face and sinus: Yes normal facial exam, No abrasion and No laceration Mouth: Normal oral and palatal mucosa present, no drooling and no muffled voice Eyes General: appearance normal, both eyes and all related structures Periorbital: periorbital findings normal Eyelids: Yes eyelids normal Conjunctivae: conjunctivae normal Pupils: Equal, round and reactive pupils present EOM: EOMs intact bilaterally Neck Neck: Yes normal visual inspection, Yes full ROM and Yes no lymphadenopathy Chest Chest palpation & inspection: normal inspection of the chest Resp Effort & Inspection: normal respiratory effort and able to speak in complete sentences GI Inspection: Yes normal to inspection Neuro General: patient oriented x3 and moves all extremities Cranial nerves: Yes Equal, round and reactive pupils present Cognition (Neuro): normal cognition Motor exam (neuro): 5/5 motor strength present throughout Sensory Exam: Normal double simultaneous stimulation for sensation Coordination: [id number] test normal Extrem General: Yes normal to inspection, Yes full ROM and Yes capillary refill normal Psych Appearance: grossly normal Mental Status: mental status grossly normal Affect: normal affect Attitude: cooperative Thought process: Normal thought process present Thought content: Normal thought content present Insight: Good insight present (Psych) Medical Decision Making Medical Decision Making MDM Narrative: Patient is a 62 year old assigned male at with a history of cocaine abuse presenting to the emergency department today requesting his results from 06/10/2023. Patient's physical exam was unremarkable. I explained my physical exam findings to the patient. I answered all questions asked by the patient. Patient was provided a copy of his urine tox screen from 06/10/2023. I stressed the importance of the patient taking his medication as prescribed. I stressed the importance of the patient following up with his primary care provider. I stressed the importance of the patient returning to the emergency department immediately if he were to develop any dizziness, shortness of breath, difficulty breathing, chest pain, blurry vision, loss of vision, nausea, vomiting, abdominal pain, fever, chills, back pain, or any other complaints. Patient verbalized agreement and understanding with this treatment plan and discharge. Differential Diagnosis Differential Diagnoses: The differential diagnosis associated with the presentation includes Urine tox screen Urine tox results Discharge Plan Discharge Clinical Impression: Encounter for drug screening Patient Disposition: Home, Self-Care Additional Instructions: Follow up with your primary care provider. Return to the emergency department immediately if you develop any dizziness, shortness of breath, difficulty breathing, chest pain, blurry vision, loss of vision, nausea, vomiting, abdominal pain, fever, chills, back pain, or any other complaints. Brittany un seguimiento con garner proveedor de atenci?n primaria. Regrese al departamento de emergencias de inmediato si presenta mareos, dificultad para respirar, dificultad para respirar, dolor en el pecho, visi?n borrosa, p?rdida de la visi?n, n?useas, v?mitos, dolor abdominal, fiebre, escalofr?os, dolor de espalda o cualquier otra queja. Prescriptions: No Action No Known Home Meds Referrals: [facility] [Provider Group] (Call to establish and follow up with a primary care provider. If you already have a primary care provider, please follow up with them. Llame para establecer y realizar un seguimiento con un proveedor de atenci?n primaria. Si ya tiene un proveedor de atenci?n primaria, brittany un seguimiento con ?l.) [facility] [place] [facility] [Provider Group] (Call to establish and follow up with a primary care provider. If you already have a primary care provider, please follow up with them. Llame para establecer y realizar un seguimiento con un proveedor de atenci?n primaria. Si ya tiene un proveedor de atenci?n primaria, brittany un seguimiento con ?l.) [facility] [place] [facility] [place] [Provider Group] (Call to establish and follow up with a primary care provider. If you already have a primary care provider, please follow up with them. Llame para establecer y realizar un seguimiento con un proveedor de atenci?n primaria. Si ya tiene un proveedor de atenci?n primaria, brittany un seguimiento con ?l.) Interventions: ED Discharge Assessment Last Done: 06/13/23 11:13 Discharge Date/Time: 06/13/23 11:14 Print Language: Turkmen
== END 2023-06-13 11:14 | disposition home or self-care (01) ==
PROVIDERS: Emergency Provider Emergency Medicine
DX: Z02.83 Encounter for blood-alcohol and blood-drug test (principal)
CPT/HCPCS: 99282

== ENCOUNTER 2023-07-12 10:26 | Emergency (ER) | payer MEDICARE, MEDICAID, SELFPAY ==
[2023-07-12 10:54] VITALS: BP 172/103; PULSE 67; RESP 20; TEMP 37.5; O2SAT 95; BMI 36.7
[2023-07-12 12:20] LABS: Amphetamine Screen Urine Not Detected (Not Detect); Barbiturates, Urine Not Detected (Not Detect); Benzodiazepines Screen Urine Not Detected (Not Detect); Cannabinoid Screen Urine Not Detected (Not Detect); Cocaine Screen Urine Not Detected (Not Detect); Fentanyl, urine Not Detected (Not Detect); Opiate Screen Urine Not Detected (Not Detect); Phencyclidine Screen Urine Not Detected (Not Detect)
--- NOTE | 2023-07-12 13:05 | ED.GENADULT ---
HPI - General Adult General Chief complaint: General Medical Stated complaint: Drug Testing Time Seen by Provider: 07/12/23 13:08 Source: patient Mode of arrival: ambulatory Limitations: no limitations History of Present Illness HPI narrative: Patient reports DCF sent him here for monthly drug testing. He has no physical complaints Related Data Home Medications Medication Instructions Recorded Confirmed No Known Home Meds 01/21/23 01/21/23 Allergies Allergy/AdvReac Type Severity Reaction Status Date / Time shellfish derived Allergy Unknown Verified 07/12/23 10:57 Review of Systems Review of Systems: Yes all other systems are reviewed and are negative Constitutional: Constitutional: Reports no additional constitutional complaints, Denies body ache(s), Denies chills, Denies fever(s), Denies headache(s) and Denies weakness Eyes: Eyes: Reports no additional eye complaints and Denies change in vision ENT: Reports system reviewed and no additional complaints, except as documented, Denies dizziness, Denies headache(s), Denies nasal congestion, Denies nasal discharge and Denies neck pain Cardiovascular: Cardiovascular: Reports no additional cardiovascular complaints, Denies chest pain, Denies leg edema and Denies dyspnea Respiratory: Respiratory: Reports no additional respiratory complaints, Denies cough and Denies dyspnea Gastrointestinal: Gastrointestinal: Reports no additional gastrointestinal complaints, Denies abdominal pain, Denies diarrhea, Denies nausea and Denies vomiting Genitourinary: Genitourinary: Denies urinary incontinence Musculoskeletal: Musculoskeletal: Reports no additional musculoskeletal complaints, Denies back pain, Denies arthralgias, Denies joint swelling, Denies neck pain, Denies numbness and Denies tingling Integumentary/Breasts: Skin/Breast: Reports system reviewed and no additional complaints, except as docu and Denies rash Neurologic: Reports system reviewed and no additional complaints, except as documented, Denies Abnormal speech present, Denies dizziness, Denies headache(s), Denies numbness, Denies tingling and Denies weakness [facility] Past Medical History Attestation statement: The following information was validated with the patient. Source: old records reviewed and nursing notes reviewed Medical History Cocaine abuse PCP abuse Psychosis Social History Social History Household Members: None Household Members Other:: Currently homeless, recently asked to leave per crisis eval Housing: Apartment Do you presently have visiting nurse or other home services: No Unable to assess alcohol history related to: Unknown Alcohol intake: never Patient Tobacco Use Status: Current someday Tobacco user Tobacco use type: Cigarette Cigarettes Per Day: 3 Second Hand Smoke Exposure: No Substance Use Type: Crack/Cocaine and Caffiene Advance Directives: No service: No Sexual orientation: Straight/Heterosexual Physical Exam ED Vital Signs: Vital Signs - 24 hr 07/12/23 10:54 Temperature 99.5 F Pulse Rate 67 Respiratory Rate 20 Blood Pressure 172/103 H Pulse Oximetry 95 Oxygen Delivery Method Room Air BMI result Body Mass Index 36.7 Const General: cooperative, healthy appearing, comfortable and no acute distress Orientation/consciousness: patient oriented x3 Limitations: no limitations HENMT Head: Yes normal to inspection Ears: hearing grossly normal bilaterally General nose exam: Normal external nose present Face and sinus: Yes normal facial exam Mouth: Normal oral and palatal mucosa present Throat: Yes posterior oropharynx normal Eyes General: appearance normal, both eyes and all related structures Pupils: Equal, round and reactive pupils present Neck Neck: Yes normal visual inspection Chest Chest palpation & inspection: normal inspection of the chest Resp Effort & Inspection: normal respiratory effort Auscultation: clear to auscultation bilaterally Cardio Rate: regular rate Rhythm: regular rhythm Peripheral pulses: Peripheral pulses 2+ throughout GI Inspection: Yes normal to inspection Palpation (GI): Soft to palpation and nontender Auscultation: normal bowel sounds Back/Spine/Pelvis Thoracic/Lumbar Spine: thoracic and lumbar spine normal to inspection Skin General skin exam: no rashes or lesions noted Neuro General: patient oriented x3, no focal motor deficits and normal sensation to monofilament Cranial nerves: Yes Equal, round and reactive pupils present Cognition (Neuro): normal cognition Speech: No Abnormal speech present Gait exam (Neuro): Normal gait present Motor exam (neuro): 5/5 motor strength present throughout Extrem General: Yes normal to inspection Medical Decision Making Medical Decision Making MDM Narrative: Patient reports DCF sent him here for monthly drug testing. He has no physical complaints Differential Diagnosis Differential Diagnoses: The differential diagnosis associated with the presentation includes medical screening Lab Data [facility] Lab Attestation statement: I reviewed the patient's lab results. Labs: Lab Results 07/12/23 Range/Units 12:07 Urine Opiates Screen Not Detected (Not Detect) Urine Fentanyl Screen Not Detected (Not Detect) Ur Barbiturates Screen Not Detected (Not Detect) Ur Phencyclidine Scrn Not Detected (Not Detect) Ur Amphetamines Screen Not Detected (Not Detect) U Benzodiazepines Scrn Not Detected (Not Detect) Urine Cocaine Screen Not Detected (Not Detect) U Marijuana (THC) Screen Not Detected (Not Detect) Discharge Plan Discharge Clinical Impression: Encounter for medical screening examination Patient Disposition: Home, Self-Care Instructions: Normal Exam (ED) Additional Instructions: See attached testing Prescriptions: No Action No Known Home Meds Referrals: [facility] [Primary Care Provider] - 1 week Interventions: ED Discharge Assessment Last Done: 07/12/23 13:10 Discharge Date/Time: 07/12/23 13:10
== END 2023-07-12 13:10 | disposition home or self-care (01) ==
PROVIDERS: Emergency Provider Emergency Medicine
DX: Z02.83 Encounter for blood-alcohol and blood-drug test (principal); Z79.899 Other long term (current) drug therapy
CPT/HCPCS: 80307; 99282; 99283

== ENCOUNTER 2023-07-27 09:48 | Emergency (ER) | payer MEDICARE, MEDICAID, SELFPAY ==
--- NOTE | ~2023-07-27 | XR_ITS ---
EXAMINATION: XR CHEST CLINICAL INFORMATION: Chest tightness cough COMPARISON: Chest radiograph from 04/14/2009 TECHNIQUE: 2 views of the chest were obtained. FINDINGS: Prominent interstitial lung markings. Bibasilar atelectasis. No pneumothorax. Trachea is midline. Cardiac mediastinal silhouette is not enlarged. No large pleural effusion. Osseous structures are intact. Soft tissues are unremarkable. XR/XR chest 2V IMPRESSION: 1. Prominent interstitial lung markings. 2. Bibasilar atelectasis.
--- NOTE | 2023-07-27 09:55 | ECG_ITS ---
Test Reason : difficulty breathing Blood Pressure : / mmHG Vent. Rate : 081 BPM Atrial Rate : 081 BPM P-R Int : 170 ms QRS Dur : 084 ms QT Int : 346 ms P-R-T Axes : 050 019 070 degrees QTc Int : 401 ms Normal sinus rhythm Nonspecific T wave abnormality Abnormal ECG When compared with ECG of 14-APR-2023 12:38, No significant change was found Referred By: Generic ED Physician Electronically Signed By:PHOENIX TOLENTINO MD
[2023-07-27 09:59] VITALS: BP 179/101; PULSE 80; RESP 17; TEMP 36.7; O2SAT 98; BMI 35.0
[2023-07-27 10:14] LABS: MANUAL DIFF FLAG NO
[2023-07-27 10:17] LABS: Basophils Percent Auto 0.2 % (0-2); Eosinophils Absolute Auto 0.1 X10*3/uL (0.0-0.4); Eosinophils Percent Auto 2.7 % (0-4); Hematocrit 40.2 % (42.0-52.0); Hemoglobin 13.5 g/dl (14.0-18.0); Imm Gran Abs Auto 0.01 X10*3/uL (0.00-0.03); Imm Gran Pct Auto 0.2 % (0.0-0.4); Lymphocytes Absolute Auto 0.9 X10*3/uL (1.2-4.9); Lymphocytes Percent Auto 22.4 % (20-40); Mean Corpuscular HGB Conc 33.6 g/dl (31.0-36.0); Mean Corpuscular Hemoglobin 28.7 pg (27.0-33.0); Mean Corpuscular Volume 85.5 fL (80.0-98.0); Mean Platelet Volume 9.5 fL (9.4-12.4); Monocytes Absolute Auto 0.3 X10*3/uL (0.1-1.2); Monocytes Percent Auto 7.5 % (2-11); Neutrophils Absolute Auto 2.8 x10*3/uL (2.0-8.3); Platelet Count 179 X10*3/uL (160-400); Red Cell Distribution Width 13.4 % (11.0-16.0); White Blood Count 4.2 X10*3/uL (4.8-10.8)
[2023-07-27 10:31] LABS: Anion Gap 12 (12-20); Blood Urea Nitrogen 8 mg/dL (9-16); Calcium 8.8 mg/dL (8.4-10.2); Carbon Dioxide 25 mmol/L (22-29); Chloride 107 mmol/L (96-108); Creatinine Clr Calc Pharmacy 116.5; Estimated Glomerular Filt Rate > 60; Glucose Random 151 mg/dL (60-115); Potassium 3.8 mmol/L (3.3-5.1); Sodium 140 mmol/L (135-145)
[2023-07-27 10:33] LABS: IDNOW Serial# 58CA691E
[2023-07-27 10:34] LABS: COVID-19 Test Negative (Negative)
[2023-07-27 10:35] LABS: IDNOW Serial# 9DB6401D; Influenza A Positive (Negative); Influenza B2 Negative (Negative)
[2023-07-27 10:41] LABS: Troponin-I High Sensitivity 3.5 ng/L (<3.5-35.0)
--- NOTE | 2023-07-27 10:47 | ED_ITS ---
HPI - General Adult General Chief complaint: Dyspnea Stated complaint: diff breathing Time Seen by Provider: 07/27/23 10:25 Source: patient Mode of arrival: ambulatory Limitations: no limitations History of Present Illness HPI narrative: Patient is a 62-year-old male presenting to the emergency department with complaint of cough, shortness of breath, sore throat, generalized body aches and nasal congestion for the past 4 days. He reports that some of his sputum has been blood tinged. He denies fevers. Denies any dizziness, lightheadedness, syncope. Denies any recent calf pain or swelling. Denies personal or family history of blood clots. Daughter is here with similar symptoms. complaint: cough Onset (ago): day(s) Treatments prior to arrival: none Related Data Previous Rx's Medication Instructions Recorded azithromycin 250 mg tablet See Rx Instructions PO .COMPLEX #6 07/27/23 tabs benzonatate 100 mg capsule 100 mg PO TID PRN cough #20 caps 07/27/23 Allergies Allergy/AdvReac Type Severity Reaction Status Date / Time shellfish derived Allergy Unknown Verified 07/27/23 09:49 Review of Systems 2 Review of Systems: As per HPI. Yes all other systems are reviewed and are negative Constitutional: Constitutional: Reports as per HPI PMF Past Medical History Medical History Cocaine abuse PCP abuse Psychosis Social History Social History Household Members: None Household Members Other:: Currently homeless, recently asked to leave per crisis eval Housing: Apartment Do you presently have visiting nurse or other home services: No Unable to assess alcohol history related to: Unknown Alcohol intake: never Patient Tobacco Use Status: Current someday Tobacco user Tobacco use type: Cigarette Cigarettes Per Day: 3 Second Hand Smoke Exposure: No Substance Use Type: Crack/Cocaine and Caffiene Advance Directives: No Advance Directives Information Provided: No service: No Sexual orientation: Straight/Heterosexual Physical Exam ED Vital Signs: Vital Signs - 24 hr 07/27/23 09:59 Temperature 98.0 F Pulse Rate 80 Respiratory Rate 17 Blood Pressure 179/101 H Pulse Oximetry 98 Oxygen Delivery Method Room Air BMI result Body Mass Index 35.0 Vital signs have been reviewed and appear to be correct. Blood pressure elevated. Heart rate normal. Respiratory rate normal. Temperature normal. Oxygen saturation normal. Const General: cooperative, healthy appearing and no acute distress Orientation/consciousness: oriented to person, oriented to place, oriented to time and patient oriented x3 Limitations: no limitations HENMT Head: Yes normocephalic and Yes atraumatic Ears: external ears normal, TM's normal bilaterally and EAC's normal General nose exam: Normal external nose present Face and sinus: Yes face symmetric Mouth: oropharynx normal, moist mucous membranes and no trismus Throat: Yes uvula midline, Yes abnormal tonsil (erythema without edema or exudate) and No peritonsillar mass Eyes Pupils: Equal, round and reactive pupils present Neck Neck: Yes normal visual inspection and Yes supple Lymphatic: no lymphadenopathy noted Resp Effort & Inspection: normal respiratory effort and able to speak in complete sentences Auscultation: clear to auscultation bilaterally Cardio Rate: regular rate Rhythm: regular rhythm Heart sounds: S1 normal heart sound present and S2 normal heart sound present GI Palpation (GI): Soft to palpation and nontender Auscultation: normoactive bowel sounds General: Yes no CVA tenderness Back/Spine/Pelvis Back: no CVA tenderness Skin General skin exam: elasticity normal and turgor normal Neuro General: oriented to person, oriented to place, oriented to time, patient oriented x3, moves all extremities, no focal motor deficits and CN's II-XI intact bilaterally Cranial nerves: Yes Equal, round and reactive pupils present Cognition (Neuro): normal cognition Extrem General: Yes full ROM, Yes no pedal edema and Yes no calf tenderness Psych Mental Status: mental status grossly normal Affect: normal affect Thought process: Normal thought process present Medical Decision Making Medical Decision Making [facility] Narrative: Patient is a 62-year-old male presenting to the emergency department with complaint of cough, shortness of breath, sore throat, generalized body aches and nasal congestion for the past 4 days. On exam patient is awake, A+Ox3, hypertensive, VS otherwise WNL, afebrile, normal neurological exam without focal deficits, physical exam findings as above. Given reported symptoms and physical exam findings, initial differential includes viral illness, COVID, flu, bronchitis, pneumonia. Labs grossly within normal limits, negative troponin. X-ray notable for bibasilar atelectasis. My interpretation is in agreement with the radiologist's interpretation. Swab positive for influenza A. Patient updated on results and all questions answered. Patient is outside the window for treatment with Tamiflu. Will treat with azithromycin. Advised patient to alternate Tylenol and ibuprofen, ensure adequate rest and adequate fluid intake, will prescribe benzonatate as needed for cough. Instructed patient follow-up with primary care provider. Return precautions discussed at bedside. Patient verbalized understanding of and agreement with plan. Differential Diagnosis Differential Diagnoses: The differential diagnosis associated with the presentation includes As per [facility]. Lab Data [facility] Lab Attestation statement: I reviewed the patient's lab results. As per [facility]. 07/27/23 10:07 07/27/23 10:07 Labs: Lab Results 07/27/23 Range/Units 10:07 WBC 4.2 L (4.8-10.8) X10*3/uL RBC 4.70 (4.60-5.80) X10*6/uL Hgb 13.5 L (14.0-18.0) g/dl Hct 40.2 L (42.0-52.0) % MCV 85.5 (80.0-98.0) fL MCH 28.7 (27.0-33.0) pg MCHC 33.6 (31.0-36.0) g/dl RDW 13.4 (11.0-16.0) % Plt Count 179 (160-400) X10*3/uL MPV 9.5 (9.4-12.4) fL Immature Gran % (Auto) 0.2 (0.0-0.4) % Neut % (Auto) 67.0 (45-73) % Lymph % (Auto) 22.4 (20-40) % [place] % (Auto) 7.5 (2-11) % Eos % (Auto) 2.7 (0-4) % Baso % (Auto) 0.2 (0-2) % Lymph # (Auto) 0.9 L (1.2-4.9) X10*3/uL [place] # (Auto) 0.3 (0.1-1.2) X10*3/uL Eos # (Auto) 0.1 (0.0-0.4) X10*3/uL Baso # (Auto) 0.0 (0.0-0.2) X10*3/uL Abs Immat Gran (auto) 0.01 (0.00-0.03) X10*3/uL Absolute Neuts (auto) 2.8 (2.0-8.3) x10*3/uL Absolute Nucleated RBC 0.000 (0.0-0.012) X10*3/uL Nucleated RBC % (auto) 0.0 (0.0-0.2) /100WBC Sodium 140 (135-145) mmol/L Potassium 3.8 (3.3-5.1) mmol/L Chloride 107 (96-108) mmol/L Carbon Dioxide 25 (22-29) mmol/L Anion Gap 12 (12-20) BUN 8 L (9-16) mg/dL Creatinine 0.84 (0.5-1.4) mg/dL Estim Creat Clear Calc 116.5 Estimated GFR > 60 Random Glucose 151 H (60-115) mg/dL Calcium 8.8 D (8.4-10.2) mg/dL Troponin I High Sens 3.5 (<3.5-35.0) ng/L COVID-19 (BRIAN) Negative (Negative) COVID-19 Clin Com See Note Influenza Type A (ESTRELLA) Positive A (Negative) Influenza Type B (ESTRELLA) Negative (Negative) Influenza A & B Note See Note Independent Interpretation I performed an independent interpretation of an: Plain X-Ray Radiology Impression Discussion of test interpretation with radiology: I have reviewed the radiologist's reading. External Record Review External record reviewed: Inpatient record, Office record and Outpatient record Prescription Management I considered prescription management with: Antiviral (Patient is outside treatment window) and Other Discharge Plan Discharge Clinical Impression: Influenza A Patient Disposition: Home, Self-Care Instructions: Influenza (DC), Flu Shot (Vaccine) for Adults (ED), Droplet Precautions (ED) Additional Instructions: You were evaluated in the emergency department today for sore throat, congestion and cough. Your flu test was positive. You should isolate at home for another 1-2 days and continue to wear mask or symptomatic after that. Your symptoms should resolve over time with rest and fluids. You are being treated with antibiotics, please complete the full course as prescribed. You can take 650 mg Tylenol or 600 mg ibuprofen every 6 hours as needed for fever or pain. You are being prescribed benzonatate which you can use every 8 hours as needed for cough. Please follow-up with your primary care provider for any ongoing symptoms. Return to the emergency department if you develop worsening pain, fever not controlled with Tylenol and ibuprofen, chest pain, dizziness or lightheadedness, or any other concerning symptoms. Prescriptions: New benzonatate 100 mg capsule 100 mg PO TID PRN (Reason: cough) Qty: 20 0RF azithromycin 250 mg tablet See Rx Instructions .ROUTE .COMPLEX Qty: 6 0RF Rx Instructions: For 250 mg dose pack: take 500 mg today (day 1), then 250 mg for 4 days (days 2-5)
== END 2023-07-27 12:22 | disposition home or self-care (01) ==
PROVIDERS: Emergency Provider Emergency Medicine
DX: J10.1 Influenza due to other identified influenza virus with other respiratory manifestations (principal); J02.9 Acute pharyngitis, unspecified; Z11.52 Encounter for screening for COVID-19
CPT/HCPCS: 36415; 71046; 80048; 84484; 85025; 87502; 87635; 93005; 99283

== ENCOUNTER → 2023-07-27 09:55 | Outpatient (BNV) | payer MEDICARE, MEDICAID, SELFPAY | PROVIDERS: Emergency Provider Emergency Medicine; Visit Provider Internal Medicine Cardiovascular Disease | DX: R06.00 Dyspnea, unspecified (principal) | CPT/HCPCS: 93010 ==

== ENCOUNTER 2023-08-11 10:35 | Emergency (ER) | payer MEDICARE, MEDICAID, SELFPAY ==
[2023-08-11 10:48] VITALS: BP 186/96; PULSE 69; RESP 18; TEMP 37.1; O2SAT 98; BMI 35.4
--- NOTE | 2023-08-11 11:49 | ED.GENADULT ---
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 He has no dizziness, lightheadedness, chest pain, shortness of breath, abdominal pain, nausea, vomiting or diarrhea. He states he has no known history of hypertension however states that whenever he was seen in the emergency department his blood pressure is always elevated. No other complaints or concerns at this time. MD complaint: Drug testing Relieving factors: none Exacerbating factors: none Associated symptoms: denies other symptoms Treatments prior to arrival: none Related Data Previous Rx's Medication Instructions Recorded azithromycin 250 mg tablet See Rx Instructions PO .COMPLEX #6 07/27/23 tabs benzonatate 100 mg capsule 100 mg PO TID PRN cough #20 caps 07/27/23 Allergies Allergy/AdvReac Type Severity Reaction Status Date / Time shellfish derived Allergy Unknown Verified 07/27/23 09:49 Review of Systems Review of Systems: Yes all other systems are reviewed and are negative PMFSH Past Medical History Attestation statement: The following information was validated with the patient. Medical History Cocaine abuse PCP abuse Psychosis Social History Social History Household Members: None Household Members Other:: Currently homeless, recently asked to leave per crisis eval Housing: Apartment Do you presently have visiting nurse or other home services: No Unable to assess alcohol history related to: Unknown Alcohol intake: never Patient Tobacco Use Status: Current someday Tobacco user Tobacco use type: Cigarette Cigarettes Per Day: 3 Second Hand Smoke Exposure: No Substance Use Type: Crack/Cocaine and Caffiene Advance Directives: No service: No Sexual orientation: Straight/Heterosexual Physical Exam ED Vital Signs: Vital Signs - 24 hr 08/11/23 10:48 Temperature 98.8 F Pulse Rate 69 Respiratory Rate 18 Blood Pressure 186/96 H Pulse Oximetry 98 Oxygen Delivery Method Room Air BMI result Body Mass Index 35.4 Const Other: General: Awake, alert, and oriented X3. No acute distress. HEENT: Normal inspection CVS: Normal heart rate and rhythm. Pulses normal. Respiratory: No respiratory distress Skin: Warm, dry, no rashes noted to exposed skin. Normal skin color. Normal skin turgor. Extremities: Normal to inspection Neuro: Oriented X 3. No motor deficit. No sensory deficit. Course Reevaluation(s) Reevaluation #1: Negative urine drug screen. Given printed paper. Patient is stable for discharge, advised follow-up PCP regarding blood pressure. Time: 11:57 Medical Decision Making Medical Decision Making MDM Narrative: This is a 62-year-old male, with no known medical problems, presenting to the emergency department for evaluation of drug test. Patient states that he is seen monthly for drug testing for DCF. He has been coming to the emergency room on a monthly basis for this. On arrival, patient's blood pressure elevated at 186/96. He states no known history of hypertension however states that his blood pressure is always slightly elevated when he comes to the emergency room. He does have a primary care physician and has an appointment in the next week to follow-up. He has no headache, dizziness, chest pain or shortness of breath. He has no physical complaints, only here for drug testing. Plan: Drug test Differential Diagnosis Differential Diagnoses: The differential diagnosis associated with the presentation includes Urine U tox screening, substance abuse, polysubstance abuse, depression, anxiety Lab Data Labs: Lab Results 08/11/23 Range/Units 11:25 Urine Opiates Screen Not Detected (Not Detect) Urine Fentanyl Screen Not Detected (Not Detect) Ur Barbiturates Screen Not Detected (Not Detect) Ur Phencyclidine Scrn Not Detected (Not Detect) Ur Amphetamines Screen Not Detected (Not Detect) U Benzodiazepines Scrn Not Detected (Not Detect) Urine Cocaine Screen Not Detected (Not Detect) U Marijuana (THC) Screen Not Detected (Not Detect) Discharge Plan Discharge Clinical Impression: Encounter for drug screening Patient Disposition: Still a Patient Additional Instructions: You tested negative for opiates, fentanyl, barbiturates, PCP, amphetamines, benzodiazepines, cocaine, and THC today. Hoy bruna negativo en opi?ceos, fentanilo, barbit?ricos, PCP, anfetaminas, benzodiazepinas, coca?na y THC. Follow up with your primary care provider. Return to the emergency department immediately if you develop any dizziness, shortness of breath, difficulty breathing, chest pain, blurry vision, loss of vision, nausea, vomiting, abdominal pain, fever, chills, back pain, or any other complaints. Brittany un seguimiento con garner proveedor de atenci?n primaria. Regrese al departamento de emergencias de inmediato si presenta mareos, dificultad para respirar, dificultad para respirar, dolor en el pecho, visi?n borrosa, p?rdida de la visi?n, n?useas, v?mitos, dolor abdominal, fiebre, escalofr?os, dolor de espalda o cualquier otra queja. Prescriptions: No Action benzonatate 100 mg capsule 100 mg PO TID PRN (Reason: cough) Qty: 20 0RF azithromycin 250 mg tablet See Rx Instructions .ROUTE .COMPLEX Qty: 6 0RF Rx Instructions: For 250 mg dose pack: take 500 mg today (day 1), then 250 mg for 4 days (days 2-5) Print Language: Malawian
[2023-08-11 11:53] LABS: Amphetamine Screen Urine Not Detected (Not Detect); Barbiturates, Urine Not Detected (Not Detect); Benzodiazepines Screen Urine Not Detected (Not Detect); Cannabinoid Screen Urine Not Detected (Not Detect); Cocaine Screen Urine Not Detected (Not Detect); Fentanyl, urine Not Detected (Not Detect); Opiate Screen Urine Not Detected (Not Detect); Phencyclidine Screen Urine Not Detected (Not Detect)
[2023-08-11 12:18] VITALS: BP 148/103; PULSE 57; RESP 18; TEMP 37.2; O2SAT 97
== END 2023-08-11 12:23 | disposition still patient (30) ==
PROVIDERS: Emergency Provider Emergency Medicine
DX: Z02.83 Encounter for blood-alcohol and blood-drug test (principal); Z79.899 Other long term (current) drug therapy; I10 Essential (primary) hypertension
CPT/HCPCS: 80307; 99284

== ENCOUNTER 2023-09-17 14:17 | Emergency (ER) | payer OTHER, MEDICARE, MEDICAID, SELFPAY ==
[2023-09-17 14:28] VITALS: BP 146/79; PULSE 70; O2SAT 98
[2023-09-17 14:41] VITALS: BP 148/88; PULSE 68; RESP 16; TEMP 37.5; O2SAT 97; BMI 33.9
[2023-09-17 16:48] VITALS: BP 140/84; PULSE 64; RESP 16; O2SAT 97
--- NOTE | 2023-09-17 16:57 | ED.GENADULT ---
HPI - General Adult General Chief complaint: General Medical Stated complaint: S/O HEADACHE AND HTN,RESOLVED PER EMS Time Seen by Provider: 09/17/23 16:57 History of Present Illness HPI narrative: The patient is a 62-year-old male who was currently an inpatient at a psychiatric hospital, [facility]. I believe he was admitted there for days ago on September 12. He was admitted for depression with suicidal ideation. Apparently at the hospital this morning he was complaining of a headache and not feeling very well. His blood pressure was 198/110 with a pulse of 68. He was given lisinopril and clonidine. He was also given ibuprofen. The patient was sent to the emergency room because of his high blood pressure and his headache. On arrival here his blood pressure and his headache had both improved. His initial blood pressure on arrival here was 148/88 with a heart rate of 68. He had no headache at the time. He continues to have no symptoms during his time waiting to be seen in the emergency room. At the time that I saw him he had been waiting about 3 hours. He denies a headache now. His blood pressure is 140/84. He tells me that he only had a headache when he was coughing earlier. He has not coughing currently. He has no symptoms at all right now in his comfortable returning to his psychiatric facility. Related Data Previous Rx's ?Medication ?Instructions ?Recorded azithromycin 250 mg tablet See Rx Instructions PO .COMPLEX #6 07/27/23 tabs benzonatate 100 mg capsule 100 mg PO TID PRN cough #20 caps 07/27/23 Allergies Allergy/AdvReac Type Severity Reaction Status Date / Time shellfish derived Allergy Unknown Verified 09/17/23 14:43 Review of Systems Review of Systems: Yes all other systems are reviewed and are negative [facility] Past Medical History Medical History Cocaine abuse PCP abuse Psychosis Social History Social History Household Members: None Household Members Other:: Currently homeless, recently asked to leave per crisis eval Housing: Apartment Do you presently have visiting nurse or other home services: No Unable to assess alcohol history related to: Unknown Alcohol intake: never Patient Tobacco Use Status: Current someday Tobacco user Tobacco use type: Cigarette Cigarettes Per Day: 3 Smoked in Last 30 Days: No Second Hand Smoke Exposure: No Use of substances other than those prescribed or required for medical reasons: No Substance Use Type: Crack/Cocaine and Caffiene Advance Directives: No Advance Directives Information Provided: No service: No Sexual orientation: Straight/Heterosexual Physical Exam ED Vital Signs: Vital Signs - 24 hr 09/17/23 14:41 09/17/23 16:48 09/17/23 17:58 Temperature 99.5 F 99.5 F Pulse Rate 68 64 64 Respiratory Rate 16 16 16 Blood Pressure 148/88 H 140/84 H 140/84 H Pulse Oximetry 97 97 97 Oxygen Delivery Method Room Air Room Air Room Air BMI result Body Mass Index 33.9 HENMT Other: Face is symmetrical, mucous membranes moist Eyes Other: Pupils are round equal, conjunctivae are clear, extraocular movements intact Neck Other: Neck is supple, no JVD Resp Effort & Inspection: normal respiratory effort Auscultation: clear to auscultation bilaterally Cardio Rate: regular rate Rhythm: regular rhythm Heart sounds: S1 normal heart sound present and S2 normal heart sound present GI Other: Abdomen is soft and nontender Skin Other: Skin is dry and unremarkable Neuro Other: The patient is awake and alert, speech is clear, face is symmetrical, moving all extremities normally. He is neurologically intact with a supple neck. Extrem Other: No peripheral edema Medical Decision Making Medical Decision Making MDM Narrative: The patient was sent from his inpatient psychiatric hospital after his blood pressures were quite high and he was apparently complaining of a headache. Here his blood pressure was not significantly elevated and he denied a headache. He looks well. I think he may return to his psychiatric facility. As it happened after the patient was discharged and he was placed in the ambulance to return to the facility the medic found his blood pressure to be 170/100. He was still asymptomatic. I did not feel there was an indication to re-register him as a patient in the emergency room and so the patient returned by ambulance to his psychiatric facility. Discharge Plan Discharge Clinical Impression: Hypertension Patient Disposition: Xfer Psychiatric Hosp Transfer Details: Mimi Todd Additional Instructions: Hypertension and headache seemed to have resolved spontaneously. Please continue regular regimens. Return to the emergency department if worse. Prescriptions: No Action benzonatate 100 mg capsule 100 mg PO TID PRN (Reason: cough) Qty: 20 0RF azithromycin 250 mg tablet See Rx Instructions .ROUTE .COMPLEX Qty: 6 0RF Rx Instructions: For 250 mg dose pack: take 500 mg today (day 1), then 250 mg for 4 days (days 2-5) Referrals: [facility] [Outside] (hypertension, resolved) Interventions: Acute Care Transfer Worksheet (ED) Last Done: 09/17/23 17:58 Discharge Date/Time: 09/17/23 18:01 Print Language: Lao
[2023-09-17 17:58] VITALS: BP 140/84; PULSE 64; RESP 16; TEMP 37.5; O2SAT 97
== END 2023-09-17 18:01 ==
PROVIDERS: Emergency Provider Emergency Medicine
DX: R51.9 Headache, unspecified (principal); I10 Essential (primary) hypertension; F17.200 Nicotine dependence, unspecified, uncomplicated; R05.9 Cough, unspecified; Z79.899 Other long term (current) drug therapy
CPT/HCPCS: 99285

== ENCOUNTER 2024-01-26 10:24 | Outpatient (REF) | payer OTHER, SELFPAY ==
[2024-01-26 10:36] LABS: MANUAL DIFF FLAG NO
[2024-01-26 10:49] LABS: Basophils Percent Auto 0.5 % (0-2); Eosinophils Absolute Auto 0.1 X10*3/uL (0.0-0.4); Eosinophils Percent Auto 2.3 % (0-4); Hematocrit 43.7 % (42.0-52.0); Hemoglobin 14.5 g/dl (14.0-18.0); Imm Gran Abs Auto 0.02 X10*3/uL (0.00-0.03); Imm Gran Pct Auto 0.4 % (0.0-0.4); Mean Corpuscular HGB Conc 33.2 g/dl (31.0-36.0); Mean Corpuscular Hemoglobin 29.1 pg (27.0-33.0); Mean Corpuscular Volume 87.8 fL (80.0-98.0); Mean Platelet Volume 10.1 fL (9.4-12.4); Monocytes Absolute Auto 0.3 X10*3/uL (0.1-1.2); Monocytes Percent Auto 5.8 % (2-11); Neutrophils Absolute Auto 3.2 x10*3/uL (2.0-8.3); Platelet Count 215 X10*3/uL (160-400); Red Blood Count 4.98 X10*6/uL (4.60-5.80); White Blood Count 5.7 X10*3/uL (4.8-10.8)
[2024-01-26 11:40] LABS: Amphetamine Screen Urine Not Detected (Not Detect); Barbiturates, Urine Not Detected (Not Detect); Benzodiazepines Screen Urine Not Detected (Not Detect); Buprenorphine Scr Not Detected (Not Detect); Cannabinoid Screen Urine Not Detected (Not Detect); Cocaine Screen Urine Not Detected (Not Detect); Fentanyl, urine Not Detected (Not Detect); Methadone Screen, Urine Not Detected (Not Detect); Opiate Screen Urine Not Detected (Not Detect); Oxycodone Screen Urine Not Detected (Not Detect); Phencyclidine Screen Urine Not Detected (Not Detect)
[2024-01-26 12:03] LABS: Lithium 0.24 mmol/L (0.60-1.20)
== END 2024-01-26 10:25 | disposition home or self-care (01) ==
LOC: HO.LAB 10:24
PROVIDERS: Visit Provider Nurse Practitioner Psychiatric/Mental Health
DX: Z79.899 Other long term (current) drug therapy (principal)
CPT/HCPCS: 80178; 80307; 85025

== ENCOUNTER 2024-07-17 11:16 | Outpatient (REF) | payer OTHER, SELFPAY ==
--- OUTSIDE RECORDS SUMMARY | 2024-07-17 12:54 | XMS_ITS | Clinical Summary ---
Author Organization [employer] Address [address] [facility] [address] [place] [address] Care Team Providers Care Copy Lathe Tender Name Role Phone Mariah Johnson MD Primary Care Provider Allergies No known active allergies Medications QUEtiapine (SEROquel) 100 MG tablet 3 Active traZODone (Desyrel) 50 MG tablet 3 Active venlafaxine (Effexor) 75 MG tablet 3 Active albuterol 108 (90 Base) MCG/ACT inhaler 4 Active baclofen (Lioresal) 10 MG tablet 4 Active clotrimazole-be tamethasone (Lotrisone) cream APPLY TOPICALLY TWICE DAILY FOR 14 DAYS. APPLY TO AFFECTED AREA 2 TIMES DAILY NEEDED 4 Active lithium 300 MG capsule 4 Active metoprolol tartrate (Lopressor) 100 MG tablet 4 Active OLANZapine (ZyPREXA) 10 MG tablet 4 Active cloNIDine (Catapres) 0.1 MG tablet 4 Active lisinopril 30 MG tablet Take 1 tablet (30 mg) by mouth Once per day. 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 without prior episode 05/11/2023 Assessment & Plan (11/03/2023 2:45 PM EDT): With SI requiring hospitalization and outpatient IOP twice in the past year He denies SI/HI currently Is excited and nervous to transition back to life Assessment & Plan (05/11/2023 8:18 AM EST): Per pt, he does not want to restart his meds No auditory hallucinations or SI, as present on ER note of 01/23/23 at [facility] Will continue to offer medication support Noncompliance with treatment 05/05/2023 Prediabetes 05/05/2023 05/05/2023 Prostatism 05/05/2023 05/05/2023 Hyperlipidemia 09/12/2020 05/05/2023 Assessment & Plan (11/03/2023 2:48 PM EDT): Intermediate risk for ASCVD, per ACC 2019 consensus guidelines there is shared decision making and further risk stratification possible between 7.5%-20% Has not taken previously prescribed statin Will revisit further risk stratification with patient at follow-up visit Hypertension 09/27/2013 05/05/2023 Assessment & Plan (11/03/2023 2:44 PM EDT): Maintenance: Lisinopril 30mg, Lopressor 100mg BMP: Lab Results Component Value Date CREATININE 1.01 05/11/2023 EGFR >60 05/11/2023 K 4.1 05/11/2023 Lipid Panel: ASCVD Risk: 9.2% EKG: Obtain baseline at f/u - Aerobic exercise to reduce BP. Initial goal of 30 min walk 3-5x/week. Increase as tolerated. - low-sodium diet (goal: <2g/day) and heart healthy diet such as DASH to reduce BP and prevent ASCVD. - Home BP monitoring 1-2 x day with goal of <140/90. - Seek immediate medical attention for chest pain, palpitations, SOB, syncope, or sudden changes in mental status. - Do not change or discontinue current prescriptions without first consulting health care provider Assessment & Plan (05/11/2023 8:16 AM EST): Uncontrolled and untreated Pt agrees to labs today, and then start CCB or diuretic asymptomatic Resolved Problems Problem Noted Date Diagnosed Date Resolved Date Morbid obesity 05/05/2023 05/05/2023 05/11/2023 Type 2 diabetes mellitus 05/05/2023 05/05/202311/2022 Immunizations Name Administration Dates Next Due Influenza injectable quadriv alent IIV4 with preservative 03/25/2015 Influenza injectable quadriv alent preservative free 04/18/2023,03/03/2022,06/29/2021,03/27,04/20/2019,04/11/2017 Influenza, IIV3, injectable 03/26/2008,1 07/21/2006,04/13/2006,04/20 Influenza, Split (incl. ken fied surface antigen) 05/22/2013 Influenza, seasonal, injecta ble, preservative free 03/02/2024 Pneumococcal Polysaccharide PPSV23 11/15/2014, Tdap 10/05/2022,11/15/2014,06/04/2011 Social History Tobacco Use Types Packs/Day Years Used Date Smoking Tobacco: Never Passive Smoke Exposure: Never Smokeless Tobacco: Never Tobacco Cessation:Counseling Given: Not Answered Alcohol Use Standard Drinks/Week Comments Never 0 (1 standard drink = 0.6 oz pur e alcohol) Alcohol Answer Date Recorded Frequency of Alcohol Consumption Not on file 05/09/2023 Average Number of Drinks Not on file 023 Frequency of Binge Drinking Not on file 09/2022 Score 0 05/09/2023 Depression Answer Date Recorded Patient Health Questionnaire-9 Score 0 05/09/2023 Patient Health Questionnaire-9 Score 0 05/09/2023 Last PHQ-9: Questionnaire Data Not on file 1 07/10/2022 Housing Stability Answer Date Recorded What is your housing situation today? I have tramaine galvin 05/09/[address] you li ve. Do you have problems with any of the following? None of the above 05/09/2023 Food Insecurity Answer Date Recorded Within the past 12 months, y ou worried that your food would run out before you got money to buy more: Never True 05/09/2023 Within the past 12 months,th e food you bought just didn't last and you didn't have enough money to get more: Never True 09/2022 Transportation Answer Date Recorded In the past 12 months, has l ack of transportation kept you from medical appts, meetings, work or from getting things needed for daily living? No 10/21/2023 Utilities Answer Date Recorded In the past 12 months, has t he electric, gas, oil or water company threatened to shut off services in your home? No 05/09/2023 Depression Answer Date Recorded Patient Health Questionnaire-2 Score 0 05/09/2023 Sex and Gender Information Value Date Recorded Sex Assigned at Male 04/05/2022 10:20 AM EDT Legal Sex Male 10:20 AM EDT Gender Identity Male 04/05/2022 10:20 AM EDT Sexual Orientation Straight 04/05/2022 10 :20 AM EDT Last Filed Vital Signs Vital Sign Reading Time Taken Comments Blood Pressure 116/74 11/02/2023 3:52 PM EDT Pulse 56 11/02/2023 3:52 PM EDT Temperature 36.4 ??C (97.6 ??F) 11/02/2023 3:52 PM ED T Respiratory Rate 20 11/02/2023 3:52 PM EDT Oxygen Saturation 98% 05/09/2023 10:10 AM EST Inhaled Oxygen Concentration - - Weight 114 kg (251 lb 3.2 oz) 11/02/2023 3:52 PM EDT Height 175.3 cm (5' 9 ) 11/02/2023 3:52 PM EDT Body Mass Index 37.1 11/02/2023 3:52 PM EDT Plan of Treatment Health Maintenance Due Date Last Done Comments CT Colonography 1962 Colonoscopy 1962 Colorectal Cancer Screening 1962 FIT DNA/Cologuard 1962 FIT 1962 FOBT 1962 Sigmoidoscopy 1962 Alcohol/Substance Use Screening 1974 Zoster Vaccines (1 of 2) 2012 Pneumococcal Vaccine: 50+ Years (2 of 2 - PCV) 11/16/2015 11/15/2014, 03/06/2008 COVID-19 Vaccine ( season) 2024 03/10/2022, 05/19/2021, 10/22/2020 Depression Screening 05/09/2024 05/09/2023, 05/09/20 Diabetes: Hemoglobin A1C 05/11/2024 05/11/2023, 1202/2020 SDOH Screening 10/20/2024 10/21/2023 Tobacco Screening 11/02/2024 11/03/2023 Lipid Panel 05/12/2028 05/12/2023, 05/14/2020 DTaP/Tdap/Td Vaccines (4 - Td or Tdap) 10/05/2032 10/05/2022, 11/15/2014, 06/04/2011 RSV Patients and Patients Aged 60 years or older (1 - 1-dose 75+ series) 2037 Pneumococcal Vaccine: Pediatrics (0 to 5 Years) and At-Risk Patients (6 to 49) Years) Aged Out 11/15/2014, 03/06/2008 No longer eligibl e based on patient's age to complete this topic HIV Screening Completed 05/11/2023 Hepatitis C Screening Completed 05/11/2023 Influenza Vaccine Completed 03/02/2024, , 03/03/2022, Additional history exists HIB Vaccines Aged Out No longer eligi ble based on patient's age to complete this topic HPV Vaccines Aged Out No longer eligi ble based on patient's age to complete this topic Hepatitis A Vaccines Aged Out No long er eligible based on patient's age to complete this topic Hepatitis B Vaccines Aged Out No long er eligible based on patient's age to complete this topic IPV Vaccines Aged Out No longer eligi ble based on patient's age to complete this topic Meningococcal Vaccine Aged Out No josie tomi eligible based on patient's age to complete this topic RSV under 20 months Aged Out No longe r eligible based on patient's age to complete this topic Rotavirus Vaccines Aged Out No longer eligible based on patient's age to complete this topic Procedures Procedure Name Priority Date/Time Associated Diagnosis Comments LIPID PANEL, STANDARD Routine 05/12/2023 8:23 AM EST Prediabetes Moderate mixed hyperlipidemia not requiring statin therapy HEPATITIS C ANTIBODY Routine 05/11/2023 9:45 AM EST Healthy adult on routine physical examination HIV 1/2 ANTIGEN/ANTIBODY, FOURTH GENERATION W/RFL Routine 05/11/2023 9:45 AM EST Healthy adult on routine physical examination HEMOGLOBIN A1C Routine 05/11/2023 9:45 AM EST Prediabetes from Last 3 Months or Most Recently Relevant to Health Maintenance Results * (ABNORMAL) Lipid Panel, Standard (05/12/2023 8:23 AM EST) Triglycerides 66 <150 mg/dL [facility] Comment:Desirable Triglyceri de: less than 150 mg/dLBorderline High Triglyceride 150-199 mg/dLHigh Triglyceride: 200-499 mg/dLVery High Triglyceride: greater than or equal to 5OO mg/dL Cholesterol 194 <200 mg/dL [facility] Comment:Desirable Cholestero l: less than 200 mg/dLBorderline High Cholesterol: 200-239 mg/dLHigh Cholesterol: greater than 239 mg/dL LDL Cholesterol Calculated 133(H) <100 mg/dL [facility] Comment:Desirable LDL: less than 100 mg/dLNear Optimal/Above Optimal LDL: 110- 129 mg/dLBorderline High LDL: 130-159 mg/dLHigh LDL: 160-189 mg/dLVery High LDL: greater than or equal to 190 mg/dL HDL Cholesterol 48 >40 mg/dL [facility] Comment:Desirable HDL: great er than 40 mg/dL Note: This HDL assay may give artificially low results in patients with liver disease. Blood Venous blood specimen / Unknown 05/12/2023 8:23 AM EST 05/12/2023 11:19 AM EST us Mariah Johnson MD LAB BLOOD ORDERABLES Final Res ult [facility] [address], [place] [phone] * Hepatitis C Ab (05/11/2023 9:45 AM EST) Hepatitis C Antibody Nonreactive Nonreactive [facility] Comment:Antibodies to HCV no t detected; does not exclude early acuteHCV infection. Blood Venous blood specimen / Unknown 05/11/2023 9:45 AM EST 05/11/2023 11:09 AM EST Mariah Johnson MD LAB BLOOD ORDERABLES Final Res ult Performing Organization Address [facility] Co de Phone Number [facility] [address] [place] [address] [phone] * HIV-1/2 Antigen and Antibodies, Fourth Generation, with Reflexes (05/11/2023 9:45 AM EST) HIV AB/AG Nonreactive Nonreactive [facility] Comment:HIV-1 p24 Ag and/or HIV-1/HIV-2 Ab not detected.A test result that is nonreactive does not exclude thepossibility of exposure to or infection with HIV-1 and/orHIV-2. Nonreactive results in this assay for individualswith prior exposure to HIV-1 and/or HIV-2 may be due toantigen and antibody levels that are below the limit ofdetection of this assay.The IPICO HIV Ag/Ab Combo assay result andsupplemental assay results should be interpreted inconjunction with the patient's clinical presentation,history and other laboratory results. If the results areinconsistent with clinical evidence, additional testing issuggested to confirm the result. Blood Venous blood specimen / Unknown 05/11/2023 9:45 AM EST 05/11/2023 11:09 AM EST Mariah Johnson MD LAB BLOOD ORDERABLES Final Res ult Performing Organization Address [facility] Co de Phone Number [facility] [address] [place] [phone] * (ABNORMAL) Hemoglobin A1c (05/11/2023 9:45 AM EST) Hemoglobin A1c 6.3(H) <6.0 % [facility] Comment:Hemoglobin A1C Refer ence Range Adults: 4.8 - 6.0 % Non diabetic: < 6.0 % Goal: < 7.0 %Additional Action Suggested: > 8.0 %Note: Hemoglobin A1c results are invalid for patients with abnormal amounts of HbF. Blood transfusions may impact the HbA1c concentration in the patient sample. Estimated Average Glucose 134 mg/dL [facility] Comment:eAG = Estimated ave rage glucose which is %A1C expressed asaverage glucose, using the formula of the K1F-JyrmbtlCzlzlnh Glucose study (ADAG), Diabetes Care, Vol.31,#8,Jan. 2007 Blood Venous blood specimen / Unknown 05/11/2023 9:45 AM EST 05/11/2023 11:03 AM EST us Mariah Johnson MD LAB BLOOD ORDERABLES Final Res ult [facility] [address] [place] [address] [phone] from Last 3 Months or Most Recently Relevant to Health Maintenance Insurance [facility] * Guarantor: Hoang Le Account Type Relation to Patient Date of Phone Billing Address Personal/Family Self [address] [place] [address] Care Teams Copy Lathe Tender Relationship Specialty Start Date End Date Mariah Johnson MD [address] [place] [address] PCP - General Family Medicine 04/21/23
--- OUTSIDE RECORDS SUMMARY | 2024-07-17 12:54 | XMS_ITS | Encounter Summary ---
Demographics Address [address] [place] [address] Mobile Phone Home Phone Work Phone Email Address Preferred Language es Marital Status Oriental Orthodox Affiliation Unknown Race Other Race Ethnic Group or Author Organization [employer] Address [address] [place] [address] Care Team Providers Care Snuff Maker Name Role Phone Mariah Johnson MD Primary Care Provider [phone] Encounter Details Date Type Department Care Team ([facility] st Contact Info) Description 05/16/2023 Orders Only [facility] MEDICINE [address] [place], [place] [phone] Mariah Johnson MD [address] [place], [place] [phone] Social History Tobacco Use Types Packs/Day Years Used Date Smoking Tobacco: Never Passive Smoke Exposure: Never Smokeless Tobacco: Never Alcohol Use Standard Drinks/Week Comments Never 0 [...] from getting things needed for daily living? Yes, it has kept me from medical appointments or getting medications. 05/09/2023 Utilities Answer Date Recorded In the past [...] Orientation Straight 04/05/2022 10 :20 AM EDT documented as of this encounter Plan of Treatment Not on file documented as of this encounter Procedures Procedure Name Priority Date/Time Associated Diagnosis Comments HIGH SENSITIVITY TROPONIN I Routine 07/27/2023 10:07 AM EST DRUG MONITOR, PANEL 1, SCREEN, URINE Routine 07/12/2023 12:07 PM EST documented in this encounter Results * High Sensitivity Troponin I (07/27/2023 10:07 AM EST) TROPONIN I HIGH SENSITIVITY 3.5 <3.5 - 35.0 ng/L [facility] Comment:The [place] high sens itivity Troponin-I results should beused in conjunction with other diagnostic information suchas ECG, clinical observations and information, and patientsymptoms to aid in the diagnosis of AK. 07/27/2023 10:0 7 AM EST 07/27/2023 10:12 AM EST us Generic External Data Provider LAB BLOOD ORDERAB LES Final Result [facility] [address] [place] [phone] * Drug Monitoring, Panel 1, Screen, Urine (07/12/2023 12:07 PM EST) Opiate Screen Urine Not Detected Not Detect [facility] Comment:Opiate cut-off is 30 0 ng/mL.Positive results are unconfirmed and should not be used fornon-medical purposes. Barbiturates, Urine Not Detected Not Detect [facility] Comment:Barbiturate cut-off is 200 ng/mL.Positive results are unconfirmed and should not be used fornon-medical purposes. Phencyclidine Screen Urine Not Detected Not Detect [facility] Comment:Phencyclidine cut-of f is 25 ng/mL.Positive results are unconfirmed and should not be used fornon-medical purposes. Amphetamine Screen Urine Not Detected Not Detect [facility] Comment:Amphetamine cut-off is 1000 ng/mL.Positive results are unconfirmed and should not be used fornon-medical purposes. Benzodiazepines Screen Urine Not Detected Not Detect [facility] Comment:Benzodiazepine cut-o ff is 200 ng/mL.Positive results are unconfirmed and should not be used fornon-medical purposes. Cocaine Screen Urine Not Detected Not Detect [facility] Comment:Cocaine cut-off is 3 00 ng/mL.Positive results are unconfirmed and should not be used fornon-medical purposes. Cannabinoid Screen Urine Not Detected Not Detect [facility] Comment:Cannabinoid cut-off is 50 ng/mL.Positive results are unconfirmed and should not be used fornon-medical purposes. FENTANYL URINE Not Detected Not Detect [facility] Comment:Fentanyl cut-off is 1 ng/mL.Positive results are unconfirmed and should not be used fornon-medical purposes. 07/12/2023 12:0 7 PM EST 07/12/2023 12:10 PM EST us Generic External Data Provider LAB URINE ORDERAB LES Final Result [facility] [address] [place] [phone] documented in this encounter Visit Diagnoses Not on filedocumented in this encounter Additional Health Concerns Assessment Noted Time PHQ-9 Depression Total Score: 0 12/04/20 23 10:13 AM EST documented as of this encounter Care Teams Snuff Maker Relationship Specialty Start Date End Date Mariah Johnson MD [address] [place] [address] PCP - General Family Medicine 04/21/23 documented as of this encounter
[2024-07-17 13:27] LABS: Hematocrit 43.3 % (42.0-52.0); Hemoglobin 14.4 g/dl (14.0-18.0); Mean Corpuscular HGB Conc 33.3 g/dl (31.0-36.0); Mean Corpuscular Hemoglobin 28.5 pg (27.0-33.0); Mean Corpuscular Volume 85.7 fL (80.0-98.0); Mean Platelet Volume 10.6 fL (9.4-12.4); Platelet Count 252 X10*3/uL (160-400); Red Blood Count 5.05 X10*6/uL (4.60-5.80); Red Cell Distribution Width 13.2 % (11.0-16.0); White Blood Count 5.6 X10*3/uL (4.8-10.8)
[2024-07-17 13:55] LABS: Lithium 0.54 mmol/L (0.60-1.20)
[2024-07-17 13:58] LABS: Amphetamine Screen Urine Not Detected (Not Detect); Barbiturates, Urine Not Detected (Not Detect); Benzodiazepines Screen Urine Not Detected (Not Detect); Buprenorphine Scr Not Detected (Not Detect); Cannabinoid Screen Urine Not Detected (Not Detect); Cocaine Screen Urine Not Detected (Not Detect); Fentanyl, urine Not Detected (Not Detect); Methadone Screen, Urine Not Detected (Not Detect); Opiate Screen Urine Not Detected (Not Detect); Oxycodone Screen Urine Not Detected (Not Detect); Phencyclidine Screen Urine Not Detected (Not Detect)
== END 2024-07-17 11:17 | disposition home or self-care (01) ==
LOC: HO.HHCL 11:16
PROVIDERS: Visit Provider Nurse Practitioner Psychiatric/Mental Health
DX: Z79.899 Other long term (current) drug therapy (principal)
CPT/HCPCS: 80178; 80307; 85027

== ENCOUNTER 2024-07-18 15:20 | Emergency (ER) | payer OTHER, SELFPAY ==
[2024-07-18 15:38] VITALS: BP 144/91; BP 149/69; PULSE 60; PULSE 63; RESP 18; TEMP 36.7; O2SAT 98; BMI 37.0
--- NOTE | 2024-07-18 15:43 | ECG_ITS ---
Test Reason : CHEST PAIN Blood Pressure : */* mmHG Vent. Rate : 64 BPM Atrial Rate : 64 BPM P-R Int : 180 ms QRS Dur : 92 ms QT Int : 390 ms P-R-T Axes : 16 8 80 degrees QTcB Int : 402 ms Normal sinus rhythm Nonspecific T wave abnormality Abnormal ECG When compared with ECG of 27-Jul-2023 10:00, No significant change was found Referred By: Jn Anand Electronically Signed By: PHOENIX TOLENTINO MD
--- NOTE | 2024-07-18 15:43 | ED_ITS ---
HPI - Chest Pain General Chief Complaint: Chest Pain Stated Complaint: chest pain Time Seen by Provider: 07/18/24 15:43 Source: patient Limitations: no limitations History of Present Illness ED Provider: Insert provider HPI narrative: 63-year-old Hebrew-speaking male with past medical history of depression with suicidal ideations and cocaine and PCP abuse presents to the emergency department due to substernal chest pain that radiates to both the left and right-sided chest. Patient states the pain has been constant since midnight last night, well over 12 hours ago. He developed at rest and did not worsened with exertion. He has had no similar pain in the past. He last ate soup for dinner at 17:30 last night. The pain is described as sharp and burning, located over the epigastric region and spread to the side of the chest wall. He reports decreased appetite since that time. Because the pain was constant through 13:00, he called EMS and received full-dose aspirin and nitroglycerin. At this time he denies any pain whatsoever. He denies associated symptoms including diaphoresis, nausea, vomiting, neck pain, arm or leg pain, numbness or weakness of extremities or recent illnesses. He denies recent cocaine or illicit drug use. He denies tobacco use. Has a history of hypertension. No history of hyperlipidemia, diabetes or heart disease in his family at an early age. He states he had a stress test 14 years ago which was unremarkable. 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 History obtained with the assistance of in-person superintendent service, Mickey. Related Data Previous Rx's ?Medication ?Instructions ?Recorded azithromycin 250 mg tablet See Rx Instructions PO .COMPLEX #6 07/27/23 tabs benzonatate 100 mg capsule 100 mg PO TID PRN cough #20 caps 07/27/23 famotidine 20 mg tablet 20 mg PO DAILY #30 tabs 07/18/24 Allergies Allergy/AdvReac Type Severity Reaction Status Date / Time shellfish derived Allergy Unknown Verified 07/18/24 15:42 Review of Systems 2 Review of Systems: Yes all other systems are reviewed and are negative [facility] Past Medical History Medical History Cocaine abuse PCP abuse Psychosis Social History Social History Household Members: None Household Members Other:: Currently homeless, recently asked to leave per crisis eval Housing: Apartment Do you presently have visiting nurse or other home services: No Unable to assess alcohol history related to: Unknown Alcohol intake: never Patient Tobacco Use Status: Current someday Tobacco user Tobacco use type: Cigarette Cigarettes Per Day: 3 Second Hand Smoke Exposure: No Substance Use Type: Crack/Cocaine and Caffiene Advance Directives: No Advance Directives Information Provided: Yes Do you have a plan to hurt others: No Plan service: No Sexual orientation: Straight/Heterosexual Physical Exam 2 Vital Signs: Vital Signs: Last Vital Signs Temp 97.9 F 07/18/24 18:42 Pulse 78 07/18/24 18:42 Resp 19 07/18/24 18:42 BP 139/91 H 07/18/24 18:42 Pulse Ox 97 07/18/24 18:42 O2 Del Method Room Air 07/18/24 18:42 BMI result Body Mass Index 37.0 Constitutional: ?Alert, oriented, speaking in full sentences HEENT: ?Normocephalic, atraumatic. ?Moist mucous membranes Eyes: ?PERRL, EOMI Neck: ?Supple, nontender Chest: ?No chest wall tenderness Respiratory: ?Lungs clear to auscultation, no increased work of breathing Cardio: ?Regular rate and rhythm, no murmur, 2+ radial and DP pulses symmetrically GI: ?Soft, nondistended, mild epigastric tenderness to palpation Back: ?Normal range of motion, nontender Skin: ?No rash, no lesions Neuro: ?Alert and oriented to person, place and time, moves all 4 extremities, no focal deficits Extremities: ?No swelling or tenderness, full range of motion Psych: ?Calm, alert and cooperative, appropriate behavior Medications Administered Discontinued Medications Generic Name Dose Route Start Last Admin Trade Name Freq PRN Reason Stop Dose Admin Famotidine 20 mg 07/18/24 16:23 07/18/24 17:40 Famotidine 20 Mg Tablet PO 07/18/24 16:24 20 mg ONCE ONE Administration Sucralfate 1 gm 07/18/24 16:23 07/18/24 17:40 Sucralfate Oral Suspension 1 Gm/10 Ml Oral.Susp PO 07/18/24 16:24 1 gm ONCE ONE Administration Medical Decision Making Medical Decision Making MDM Narrative: This patient presents with chest pain, with symptoms suggestive of noncardiac chest pain. History without high risk features (e.g., not substernal, no exertional component, not relieved with rest). Minimal CAD risk factors. Exam without evidence of volume overload. EKG without signs of active ischemia. HEART score: 3. Plan to send troponin to evaluate for evidence of NSTEMI. Presentation not consistent with acute PE (Wells low risk), pneumothorax, thoracic arotic dissection, cardiac effusion or tamponade. Plan: labs, troponin, EKG, CXR, serial reassessment. Highly unlikely that the patient has ACS given nearly 14 hours of pain with a troponin of 3.5. However, he does have nonspecific T-wave abnormalities with T- wave inversion in aVL. We will repeat troponin. Patient is given Carafate and famotidine for the epigastric discomfort which he explains as the same pain that he had all day. Second troponin and remainder of labs including lipase and chemistry are unremarkable. The patient does have a mild elevation in glucose over 200 but did just eat food here. I discussed that he should follow up with his primary care provider for repeat testing. I discussed return precautions for any worsening chest pain. He reports significant improvement after Carafate and famotidine. Prescription for famotidine provided. Admission/Observation Consideration of admission/observation: Escalation of care including admission/observation considered Lab Data 07/18/24 15:48 07/18/24 18:13 Labs: Lab Results 07/18/24 07/18/24 Range/Units 15:48 18:13 WBC 7.4 (4.8-10.8) X10*3/uL RBC 5.13 (4.60-5.80) X10*6/uL Hgb 14.4 (14.0-18.0) g/dl Hct 43.3 (42.0-52.0) % MCV 84.4 (80.0-98.0) fL MCH 28.1 (27.0-33.0) pg MCHC 33.3 (31.0-36.0) g/dl RDW 13.2 (11.0-16.0) % Plt Count 244 (160-400) X10*3/uL MPV 9.7 (9.4-12.4) fL Immature Gran % (Auto) 0.4 (0.0-0.4) % Neut % (Auto) 71.7 (45-73) % Lymph % (Auto) 20.8 (20-40) % Leslie % (Auto) 5.7 (2-11) % Eos % (Auto) 1.1 (0-4) % Baso % (Auto) 0.3 (0-2) % Lymph # (Auto) 1.5 (1.2-4.9) X10*3/uL Leslie # (Auto) 0.4 (0.1-1.2) X10*3/uL Eos # (Auto) 0.1 (0.0-0.4) X10*3/uL Baso # (Auto) 0.0 (0.0-0.2) X10*3/uL Abs Immat Gran (auto) 0.03 (0.00-0.03) X10*3/uL Absolute Neuts (auto) 5.3 (2.0-8.3) x10*3/uL Absolute Nucleated RBC 0.000 (0.0-0.012) X10*3/uL Nucleated RBC % (auto) 0.0 (0.0-0.2) /100WBC Sodium Cancelled 140 Potassium Cancelled 4.0 Chloride Cancelled 105 Carbon Dioxide Cancelled 29 Anion Gap Cancelled 10 L BUN Cancelled 9 Creatinine Cancelled 1.00 Estim Creat Clear Calc Cancelled 96.4 Estimated GFR Cancelled > 60 Random Glucose Cancelled 216 H Calcium Cancelled 8.7 Magnesium Cancelled Total Bilirubin Cancelled 0.7 AST Cancelled 22 ALT Cancelled 18 Alkaline Phosphatase Cancelled 98 Troponin I High Sens 3.5 3.4 (<3.5-35.0) ng/L Total Protein Cancelled 7.3 Albumin Cancelled 3.7 Lipase 16 (8-78) U/L Independent Interpretation I performed an independent interpretation of an: EKG Interpretation: Normal sinus rhythm at 64 beats per minute, T-wave inversion in aVL, normal axis, unremarkable intervals, no diagnostic ST wave abnormalities with slight ST elevation limited to V1. Compared to prior dated 07/27/2023, previous ECG did have similar elevation in V1 as well as T-wave flattening in aVL. Scores Heart Score History: -0- slightly suspicious ECG: -1- non specific repolarization disturbance Age: -1- >45 - <65 Risk factory: -1- 1 or 2 risk factors Troponin: -0- < or = normal limit Score: 3 Risk: 1.7% Discharge Plan Discharge Clinical Impression: Chest pain Qualifiers: Chest pain type: unspecified Qualified Code(s): R07.9 - Chest pain, unspecified Patient Disposition: Home, Self-Care Instructions: Chest Pain (ED), Gastroesophageal Reflux Disease (ED) Additional Instructions: Le perez evaluado por dolor tor?cico. Los an?lisis de muna y el electrocardiograma jeanette normales. Garner dolor mejor? con la medicina aqu?. Le recetamos famotidina para tremayne todas las ma?anas. Por favor, consulte con garner m?dico de cabecera. Por favor, tambi?n hable con ellos de garner elevado nivel de az?car en la muna para un nuevo an?lisis. Por favor, vuelva con cualquier empeoramiento de los s?ntomas, incluyendo dolor tor?cico recurrente, dificultad para respirar, dolor o s?ntomas cuando se esfuerza o cualquier otro cambio omar o preocupaciones. Traducci?n realizada con la versi?n gratuita del traductor [email or web address] Prescriptions: New famotidine 20 mg tablet 20 mg PO DAILY Qty: 30 0RF No Action benzonatate 100 mg capsule 100 mg PO TID PRN (Reason: cough) Qty: 20 0RF azithromycin 250 mg tablet See Rx Instructions .ROUTE .COMPLEX Qty: 6 0RF Rx Instructions: For 250 mg dose pack: take 500 mg today (day 1), then 250 mg for 4 days (days 2-5) Print Language: Hebrew
[2024-07-18 15:53] LABS: MANUAL DIFF FLAG NO
[2024-07-18 15:54] LABS: Basophils Percent Auto 0.3 % (0-2); Eosinophils Absolute Auto 0.1 X10*3/uL (0.0-0.4); Eosinophils Percent Auto 1.1 % (0-4); Hematocrit 43.3 % (42.0-52.0); Hemoglobin 14.4 g/dl (14.0-18.0); Imm Gran Abs Auto 0.03 X10*3/uL (0.00-0.03); Imm Gran Pct Auto 0.4 % (0.0-0.4); Lymphocytes Absolute Auto 1.5 X10*3/uL (1.2-4.9); Lymphocytes Percent Auto 20.8 % (20-40); Mean Corpuscular HGB Conc 33.3 g/dl (31.0-36.0); Mean Corpuscular Hemoglobin 28.1 pg (27.0-33.0); Mean Corpuscular Volume 84.4 fL (80.0-98.0); Mean Platelet Volume 9.7 fL (9.4-12.4); Monocytes Absolute Auto 0.4 X10*3/uL (0.1-1.2); Monocytes Percent Auto 5.7 % (2-11); Neutrophils Absolute Auto 5.3 x10*3/uL (2.0-8.3); Neutrophils Percent Auto 71.7 % (45-73); Platelet Count 244 X10*3/uL (160-400); Red Blood Count 5.13 X10*6/uL (4.60-5.80); Red Cell Distribution Width 13.2 % (11.0-16.0); White Blood Count 7.4 X10*3/uL (4.8-10.8)
[2024-07-18 16:16] LABS: Troponin-I High Sensitivity 3.5 ng/L (<3.5-35.0)
--- OUTSIDE RECORDS SUMMARY | 2024-07-18 16:33 | XMS_ITS | Encounter Summary ---
Author Organization [employer] Address [address] [place] [address] Care Team Providers Care Sheet Metal Worker Helper Name Role Phone Mariah Johnson MD Primary Care Provider [phone] Reason for Visit * Reason Comments Chest Pain Encounter Details Date Type Department Care Team ([facility] Contact Info) Description 07/18/2024 3:20 PM EST Office Visit [facility] [address], [place] [id number] Name, MD Enrrique [address] [place] [address] Chest pain, unspecified type (Primary Dx); Hypertension, unspecified type Social History Tobacco Use Types Packs/Day Years Used Date Smoking Tobacco: Never Passive Smoke Exposure: Never Smokeless Tobacco: Never Alcohol Use Standard Drinks/Week Comments Never 0 (1 standard drink = 0.6 oz pur e alcohol) Depression Answer Date Recorded Patient Health Questionnaire-9 [...] AM EDT documented as of this encounter Last Filed Vital Signs Vital Sign Reading Time Taken Comments Blood Pressure 156/95 07/18/2024 2:30 PM EST Pulse 72 07/18/2024 2:30 PM EST Temperature 36.5 ??C (97.7 ??F) 07/18/2024 2:30 PM ES T Respiratory Rate - - Oxygen Saturation 96% 07/18/2024 2:30 PM EST RA Inhaled Oxygen Concentration - - Weight - - Height - - Body Mass Index - - documented in this encounter Progress Notes * Ayesha Sanford RN - 07/18/2024 3:20 PM EST Pt reporting 9/10 constant sharp mid-sternal chest pressure radiating to left chest since 11PM lastnight, with dizziness, SOB at times, sweating. Pt reporting he has not taken BP medications for oneyear, then reports a few months, then reports took the AM. Family unable to verify. Verbal report given Dr. Mccurdy, whom gave verbal order for 324mg ASA and call EMS. EMS called. Warm hand off given to Walk In Lead Former Marj [facility]. * Phillip Jaramillo MD - 07/18/2024 3:20 PM EST Subjective Patient ID: Hoang Le is a 63 y.o. male. HPI Lives Works Never smoked EtOH. Illicit substances. Patient Active Problem List Diagnosis Hyperlipidemia Hypertension Noncompliance with treatment Prediabetes Prostatism Obesity (BMI 30.0-34.9) Current severe episode of major depressive disorder without psychotic features without prior episode ([facility]) The following portions of the chart were reviewed this encounter and updated as appropriate: Tobacco Allergies Meds Problems Med Hx Surg Hx Fam Hx Review of Systems Objective Physical Exam Procedures Assessment/Plan * Enrrique Mccurdy MD - 07/18/2024 3:20 PM EST Subjective Patient ID: Hoang Le is a 63 y.o. male who presents for Chest Pain. Patient comes as a walk-in visit complaining of substernal chest pain with radiation to the left shoulder that started at 11:00 PM last night. Symptoms are associated with mild shortness of breath. He has a personal history of hypertension. He is not a smoker. Review of Systems Constitutional: Negative for chills, fatigue and fever. HENT: Negative for sore throat. Respiratory: Positive for chest tightness and shortness of breath. Negative for cough. Cardiovascular: Positive for chest pain. Negative for palpitations and leg swelling. Gastrointestinal: Negative for abdominal pain and blood in stool. Visit Vitals BP (!) 156/95 (BP Location: Left arm, Patient Position: Sitting, BP Cuff Size: Large adult) Pulse 72 Temp 97.7 ??F (36.5 ??C) (Temporal) SpO2 96% Comment: RA Smoking Status Never Objective Physical Exam Constitutional: Appearance: Normal appearance. Cardiovascular: Rate and Rhythm: Normal rate and regular rhythm. Heart sounds: No murmur heard. Pulmonary: Effort: Pulmonary effort is normal. No respiratory distress. Breath sounds: No wheezing, rhonchi or rales. Abdominal: Palpations: Abdomen is soft. Tenderness: There is no abdominal tenderness. Musculoskeletal: Right lower leg: No edema. Left lower leg: No edema. Neurological: Mental Status: He is alert. Assessment/Plan Diagnoses and all orders for this visit: Chest pain, unspecified type Comments: I recommended 324 mg of aspirin in office. Transfer to the hospital by ambulance to rule out acute coronary syndrome. Orders: - aspirin chewable tablet 324 mg - ECG 12 lead Hypertension, unspecified type - ECG 12 lead documented in this encounter Plan of Treatment Not on file documented as of this encounter Procedures Procedure Name Priority Date/Time Associated Diagnosis Comments ECG 12-LEAD Routine 07/18/2024 2:54 PM EST Hypertension, unspecified type Chest pain, unspecified type documented in this encounter Results * ECG 12 lead (07/18/2024 2:54 PM EST) Narrative Name, MD Enrrique - 07/18/2024 2:54 PM EST Normal sinus rhythm. ??Heart rate of 67. ??No ST segment elevation. Enrrique Mccurdy MD ECG ORDERABLES Final Result documented in this encounter Visit Diagnoses Diagnosis Chest pain, unspecified type- Primary Hypertension, unspecified type documented in this encounter Administered Medications Inactive Administered Medications - up to 3 most recent administrations Medication Order MAR Action Action Date Dose Rate Site aspirin chewable tablet 324 mg 324 mg, Oral, Once, On Tue07/18/24 at 1500, For 1 doseIndications:Chest pain, unspecified type Given 07/18/2024 2:50 PM EST 324 mg documented in this encounter Additional Health Concerns Assessment Noted Time PHQ-9 Depression Total Score: 0 05/09/20 10:13 AM EST documented as of this encounter Care Teams Sheet Metal Worker Helper Relationship Specialty Start Date End Date Mariah Johnson MD [address] [place] [address] PCP - General Family Medicine 04/21/23 documented as of this encounter
--- OUTSIDE RECORDS SUMMARY | 2024-07-18 16:33 | XMS_ITS | Clinical Summary ---
Author Organization [employer] Address [address] [place] [address] [address] [place] [address] Care Team Providers Care Gusset Folder Name Role Phone Mariah Johnson MD Primary Care Provider [phone] Allergies No known active allergies Medications QUEtiapine [...] per day. 90 tablet 3 4 Active Hospital, Clinic, or Other Facility Administered Medication Ordered Dose Route Frequency Start Date End Date Status aspirin chewable tablet 324 mgIndications:Chest pain, unspecified type 324 mg PO Once 07/18/2024 07/18/2024 Ended Active Problems Problem Noted Date Diagnosed Date [...] present on ER note of 01/23/23 at [facility] Will continue to offer medication support Noncompliance [...] 05/11/2023 Type 2 diabetes mellitus 05/05/2023 05/05/202311/2022 Encounters Date Type Department Care Team Description 07/18/2024 3:20 PM EST Office Visit [facility] [address] [address] Name, MD Enrrique Chest pain, unspecified type (Primary Dx); Hypertension, unspecified type from Last 3 Months Immunizations Name Administration Dates Next Due Influenza [...] 07/18/2024 2:30 PM ES T Respiratory Rate 20 11/02/2023 3:52 PM EDT Oxygen Saturation 96% 07/18/2024 2:30 PM EST RA Inhaled Oxygen Concentration - - Weight 114 [...] 05/19/2021, 10/22/2020 Depression Screening 05/09/2024 05/09/2023, 05/09/20 23 Diabetes: Hemoglobin A1C 05/11/2024 05/11/2023, 12/02/2020 SDOH Screening 10/20/2024 10/21/2023 Tobacco Screening 07/18/2025 07/18/2024 Lipid Panel 05/12/2028 05/12/2023, 05/14/2020 DTaP/Tdap/Td Vaccines (4 - Td or Tdap) 10/05/2032 10/05/2022, 11/15/2014, 06/04/2011 RSV Patients and Patients Aged 60 years or older (1 - 1-dose 75+ series) 2037 HIV Screening Completed 05/11/2023 Hepatitis C Screening [...] Hypertension, unspecified type Chest pain, unspecified type LIPID PANEL, STANDARD Routine 05/12/2023 8:23 AM [...] Recently Relevant to Health Maintenance Results * ECG 12 lead (07/18/2024 2:54 PM EST) Narrative Name, MD Enrrique - 07/18/2024 2:54 PM EST Normal sinus rhythm. ??Heart rate of 67. ??No ST segment elevation. us Enrrique Mccurdy MD ECG ORDERABLES Final Result * (ABNORMAL) Lipid Panel, Standard (05/12/2023 8:23 AM EST) Triglycerides 66 <150 mg/dL [facility] Comment:Desirable Triglyceri de: less than 150 mg/dLBorderline High Triglyceride 150-199 mg/dLHigh Triglyceride: 200-499 mg/dLVery High Triglyceride: greater than or equal to 5OO mg/dL Cholesterol 194 <200 mg/dL [facility] Comment:Desirable Cholestero l: less than 200 mg/dLBorderline High Cholesterol: 200-239 mg/dLHigh Cholesterol: greater than 239 mg/dL LDL Cholesterol Calculated 133(H) <100 mg/dL [facility] Comment:Desirable LDL: less than 100 mg/dLNear Optimal/Above Optimal LDL: 110- 129 mg/dLBorderline High LDL: 130-159 mg/dLHigh LDL: 160-189 mg/dLVery High LDL: greater than or equal to 190 mg/dL HDL Cholesterol 48 >40 mg/dL [facility] Comment:Desirable HDL: great er than 40 mg/dL Note: This HDL assay may give artificially low results in patients with liver disease. Blood Venous blood specimen / Unknown 05/12/2023 8:23 AM EST 05/12/2023 11:19 AM EST us Mariah Johnson MD LAB BLOOD ORDERABLES Final Res ult Performing Organization Address [facility] Co de Phone Number [facility] [address] [place] [address] [phone] * Hepatitis C Ab (05/11/2023 9:45 AM EST) Hepatitis C Antibody Nonreactive Nonreactive [facility] Comment:Antibodies to HCV no t detected; does not exclude early acuteHCV infection. Blood Venous blood specimen / Unknown 05/11/2023 9:45 AM EST 05/11/2023 11:09 AM EST Mariah Johnson MD LAB BLOOD ORDERABLES Final Res ult Performing Organization Address [facility] de Phone Number [facility] [address] [place] [phone] * HIV-1/2 Antigen and Antibodies, Fourth Generation, with Reflexes (05/11/2023 9:45 AM EST) HIV AB/AG Nonreactive Nonreactive [facility] Comment:HIV-1 p24 Ag and/or HIV-1/HIV-2 Ab not detected.A test result that is nonreactive does not exclude thepossibility of exposure to or infection with HIV-1 and/orHIV-2. Nonreactive results in this assay for individualswith prior exposure to HIV-1 and/or HIV-2 may be due toantigen and antibody levels that are below the limit ofdetection of this assay.The [employer] Bubble HIV Ag/Ab Combo assay result andsupplemental assay results should be interpreted inconjunction with the patient's clinical presentation,history and other laboratory results. If the results areinconsistent with clinical evidence, additional testing issuggested to confirm the result. Blood Venous blood specimen / Unknown 05/11/2023 9:45 AM EST 05/11/2023 11:09 AM EST Mariah Johnson MD LAB BLOOD ORDERABLES Final Res ult Performing Organization Address [facility] Co de Phone Number [facility] [address] [place] [phone] * (ABNORMAL) Hemoglobin A1c (05/11/2023 9:45 AM EST) Hemoglobin A1c 6.3(H) <6.0 % [facility] Comment:Hemoglobin A1C Refer ence Range Adults: 4.8 - 6.0 % Non diabetic: < 6.0 % Goal: < 7.0 %Additional Action Suggested: > 8.0 %Note: Hemoglobin A1c results are invalid for patients with abnormal amounts of HbF. Blood transfusions may impact the HbA1c concentration in the patient sample. Estimated Average Glucose 134 mg/dL [facility] Comment:eAG = Estimated ave rage glucose which is %A1C expressed asaverage glucose, using the formula of the [id number] Glucose study (ADAG), Diabetes Care, Vol.31,#8,Jan. 2007 Blood Venous blood specimen / Unknown 05/11/2023 9:45 AM EST 05/11/2023 11:03 AM EST us Mariah Johnson MD LAB BLOOD ORDERABLES Final Res ult Performing Organization Address [facility] Co de Phone Number [facility] [address] [place] [phone] from Last 3 Months or Most Recently Relevant to Health Maintenance Insurance * Guarantor: Hoang Le Account Type Relation to Patient Date of Phone Billing Address Personal/Family Self [address] [place] [address] [facility] Care Teams Gusset Folder Relationship Specialty Start Date End Date Mariah Johnson MD [address] [place] [phone] PCP - General Family Medicine 04/21/23
--- OUTSIDE RECORDS SUMMARY | 2024-07-18 16:33 | XMS_ITS | Encounter Summary ---
Demographics Address [address] [place] [address] Mobile Phone Home Phone Work Phone Email Address Preferred Language es Marital Status Episcopalian Affiliation Unknown Race Other Race Ethnic Group or Author Organization [employer] Address [address] [place] [address] Care Team Providers Care Weapons Designer Name Role Phone Mariah Johnson MD Primary Care Provider [phone] Encounter Details Date Type Department Care Team ([facility] st Contact Info) Description 05/16/2023 Orders Only [facility] [address] [place], [place] [phone] Mariah Johnson MD [address] [place], [place] [phone] Social History Tobacco Use Types Packs/Day Years [...] HIGH SENSITIVITY 3.5 <3.5 - 35.0 ng/L [facility] Comment:The [place] high sens itivity Troponin-I results should beused in conjunction with other diagnostic information suchas ECG, clinical observations and information, and patientsymptoms to aid in the diagnosis of [place]. 07/27/2023 10:0 7 AM EST 07/27/2023 10:12 AM EST us Generic External Data Provider LAB BLOOD ORDERAB LES Final Result [facility] [address] [place] [phone] * Drug Monitoring, Panel 1, Screen, Urine (07/12/2023 12:07 PM EST) Opiate Screen Urine Not Detected Not Detect [facility] Comment:Opiate cut-off is 30 0 ng/mL.Positive results are unconfirmed and should not be used fornon-medical purposes. Barbiturates, Urine Not Detected Not Detect [facility] Comment:Barbiturate cut-off is 200 ng/mL.Positive results are unconfirmed and should not be used fornon-medical purposes. Phencyclidine Screen Urine Not Detected Not Detect [facility] Comment:Phencyclidine cut-of f is 25 ng/mL.Positive results are unconfirmed and should not be used fornon-medical purposes. Amphetamine Screen Urine Not Detected Not Detect [facility] Comment:Amphetamine cut-off is 1000 ng/mL.Positive results are unconfirmed and should not be used fornon-medical purposes. Benzodiazepines Screen Urine Not Detected Not Detect [facility] Comment:Benzodiazepine cut-o ff is 200 ng/mL.Positive results are unconfirmed and should not be used fornon-medical purposes. Cocaine Screen Urine Not Detected Not Detect [facility] Comment:Cocaine cut-off is 3 00 ng/mL.Positive results are unconfirmed and should not be used fornon-medical purposes. Cannabinoid Screen Urine Not Detected Not Detect [facility] Comment:Cannabinoid cut-off is 50 ng/mL.Positive results are unconfirmed and should not be used fornon-medical purposes. FENTANYL URINE Not Detected Not Detect [facility] Comment:Fentanyl cut-off is 1 ng/mL.Positive results are unconfirmed and should not be used fornon-medical purposes. 07/12/2023 12:0 7 PM EST 07/12/2023 12:10 PM EST us Generic External Data Provider LAB URINE ORDERAB LES Final Result [facility] [address] [place] [phone] documented in this encounter Visit Diagnoses Not on filedocumented in this encounter Additional Health Concerns Assessment Noted Time PHQ-9 Depression Total Score: 0 05/09/20 23 10:13 AM EST documented as of this encounter Care Teams Weapons Designer Relationship Specialty Start Date End Date Mariah Johnson MD [address] [place] [phone] PCP - General Family Medicine 04/21/23 documented as of this encounter
[2024-07-18] MEDS: Famotidine 20 MG TABLET PO (17:40)
[2024-07-18] MEDS: Sucralfate Oral Suspension 1 GM/10 ML ORAL.SUSP PO (17:40)
[2024-07-18 18:32] LABS: Alanine Aminotransferase 18 U/L (0-40); Albumin Level 3.7 g/dL (3.5-5.0); Alkaline Phosphatase 98 U/L (39-117); Anion Gap 10 (12-20); Aspartate Amino Transferase 22 U/L (5-37); Bilirubin Total 0.7 mg/dL (0.0-1.0); Blood Urea Nitrogen 9 mg/dL (9-16); Calcium 8.7 mg/dL (8.4-10.2); Carbon Dioxide 29 mmol/L (22-29); Chloride 105 mmol/L (96-108); Creatinine Clr Calc Pharmacy 96.4; Estimated Glomerular Filt Rate > 60; Glucose Random 216 mg/dL (60-115); Lipase 16 U/L (8-78); Sodium 140 mmol/L (135-145); Total Protein 7.3 g/dL (6.5-8.0)
[2024-07-18 18:39] LABS: Troponin-I High Sensitivity 3.4 ng/L (<3.5-35.0)
[2024-07-18 18:42] VITALS: BP 139/91; PULSE 78; RESP 19; TEMP 36.6; O2SAT 97
[2024-07-18 19:25] VITALS: BP 139/91; PULSE 78; RESP 19; TEMP 36.6; O2SAT 97
== END 2024-07-18 19:25 | disposition home or self-care (01) ==
PROVIDERS: Emergency Provider Emergency Medicine
DX: R07.89 Other chest pain (principal); R45.851 Suicidal ideations; F14.10 Cocaine abuse, uncomplicated; F17.210 Nicotine dependence, cigarettes, uncomplicated; Z79.899 Other long term (current) drug therapy
CPT/HCPCS: 36415; 80053; 83690; 83735; 84484; 85025; 93005; 99283; 99284

== ENCOUNTER → 2024-07-18 15:43 | Outpatient (BNV) | payer OTHER, SELFPAY | PROVIDERS: Emergency Provider Emergency Medicine; Visit Provider Internal Medicine Cardiovascular Disease | DX: R94.31 Abnormal electrocardiogram [ECG] [EKG] (principal); R07.9 Chest pain, unspecified | CPT/HCPCS: 93010 ==

== ENCOUNTER 2024-11-01 15:39 | Outpatient (REF) | payer OTHER, SELFPAY ==
--- NOTE | ~2024-11-01 | XR_ITS ---
EXAMINATION: XR CHEST CLINICAL INFORMATION: cough and SOB x one week r/o PNA COMPARISON: 07/27/2023. TECHNIQUE: 2 views of the chest were obtained. FINDINGS: The cardiac, hilar, and mediastinal contours are normal. The lungs demonstrate prominent interstitial lung markings, similar to the prior exam. Mild pulmonary hyperaeration. Mild bibasilar atelectasis. There is no pneumothorax or pleural effusion. There is no focal osseous or soft tissue abnormality. XR/XR chest 2V IMPRESSION: 1. Stable prominent interstitial pulmonary markings. 2. Mild bibasilar linear type atelectasis. 3. Otherwise, no focal pneumonia or active disease. Electronically signed by: Aung Pemberton MD 11/01/2024 03:57 PM EDT
--- OUTSIDE RECORDS SUMMARY | 2024-11-01 15:42 | XMS_ITS | Clinical Summary ---
Author Organization [employer] Address [address] [place] [address] [address] [place] [address] Care Team Providers Care Mail Truck Driver Name Role Phone Mariah Johnson MD Primary Care Provider [phone] Allergies No known active allergies Medications QUEtiapine (SEROquel) 100 MG tablet 02/09/20 23 Active traZODone (Desyrel) 50 MG tablet 02/09/20 23 Active venlafaxine (Effexor) 75 MG tablet 02/09/20 23 Active baclofen (Lioresal) 10 MG tablet 09/22/19 24 Active clotrimazole-b etamethasone (Lotrisone) cream APPLY TOPICALLY TWICE DAILY FOR 14 DAYS. APPLY TO AFFECTED AREA 2 TIMES DAILY NEEDED 10/17/19 24 Active lithium 300 MG capsule 09/22/19 24 Active metoprolol tartrate (Lopressor) 100 MG tablet 09/22/19 24 Active OLANZapine (ZyPREXA) 10 MG tablet 10/19/19 24 Active cloNIDine (Catapres) 0.1 MG tablet 10/21/19 24 Active lisinopril 30 MG tablet Take 1 tablet (30 mg) by mouth Once per day. 90 tablet 3 11/03/19 24 Active predniSONE (Deltasone) 20 MG tablet Take 3 tablets (60 mg) by mouth Once per day for 5 days. 15 tablet 11/02/19 25 025 Active azithromycin (Zithromax) 250 MG tablet Take two tablets PO today then take one tablet PO daily for the next four days 6 tablet 11/02/19 25 Active benzonatate (Tessalon Perles) 100 MG capsule Take 1 capsule (100 mg) by mouth if needed in the morning, at noon, and at bedtime for cough for up to 10 days. Do not crush or chew. 30 capsule 11/02/19 25 025 Active albuterol 108 (90 Base) MCG/ACT inhaler Inhale 2 puffs every 4 (four) hours if needed for wheezing or shortness of breath. 18 g 11/02/19 25 Active cetirizine (ZyrTEC) 10 MG tablet Take 1 tablet (10 mg) by mouth Once per day. 30 tablet 3 11/02/19 25 026 Active fluticasone (Flonase) 50 MCG/ACT nasal spray Administer 2 sprays into each nostril Once per day. Shake gently. Before first use, prime pump. After use, clean tip and replace cap. 16 g 3 11/02/19 25 026 Active albuterol 108 (90 Base) MCG/ACT inhaler 10/07/19 24 025 Discontinued(Re order (will not trigger notification to Pharmacy)) Hospital, Clinic, or Other Facility Administered Medication Ordered Dose Route Frequency Start Date End Date Status albuterol (2.5 MG/3ML) 0.083% nebulizer solution 2.5 mgIndications:Bronch itis 2.5 mg NEBULIZATION Once 11/01/2024 11/01/2024 Ended Active Problems Problem Noted Date Diagnosed [...] present on ER note of 01/23/23 at [facility] Will continue to offer medication support Noncompliance [...] Encounters Date Type Department Care Team Description 11/01/2024 2:40 PM EDT Office Visit [facility] [address] [place] [phone] Bronchitis (Primary Dx) 11/01/2024 Travel from Last 3 Months Immunizations Immunization Administration Dates Next Due Influenza injectable quadriv [...] Sign Reading Time Taken Comments Blood Pressure 133/93 11/01/2024 2:28 PM EDT Pulse 85 11/01/2024 2:28 PM EDT Temperature 37.1 ??C (98.8 ??F) 11/01/2024 2:28 PM ED T Respiratory Rate 18 11/01/2024 2:28 PM EDT Oxygen Saturation 98% 11/01/2024 2:28 PM EDT Inhaled Oxygen Concentration - - Weight 113 kg (249 lb 6.4 oz) 11/01/2024 2:28 PM EDT Height 175.3 cm (5' 9 ) 11/02/2023 3:52 PM EDT Body Mass Index 36.83 11/02/2023 3:52 PM EDT Plan of Treatment Health Maintenance Due Date Last Done Comments CT Colonography 1962 Colonoscopy 1962 Colorectal Cancer Screening 1962 FIT DNA/Cologuard 1962 FIT 1962 FOBT 1962 Sigmoidoscopy 1962 Disability Screening 1962 Alcohol/Substance Use Screening 1974 Zoster Vaccines (1 of 2) 2012 Pneumococcal Vaccine: 50+ Years (2 of 2 - PCV) 11/16/2015 11/15/2014, 03/06/2008 COVID-19 Vaccine ( season) 2024 03/10/2022, 05/19/2021, 10/22/2020 Depression Screening 05/09/2024 05/09/2023, 05/09/20 Diabetes: Hemoglobin A1C 05/11/2024 05/11/2023, 02/2020 SDOH Screening 10/20/2024 10/21/2023 Tobacco Screening 07/18/2025 [...] patient's age to complete this topic Meningococcal B Vaccine Aged Out No l onger eligible based on patient's age to complete [...] Procedure Name Priority Date/Time Associated Diagnosis Comments POCT INFLUENZA B (ID NOW RAPID MOLECULAR) Routine 11/01/2024 3:39 PM EDT Bronchitis POCT INFLUENZA A (ID NOW RAPID MOLECULAR) Routine 11/01/2024 3:39 PM EDT Bronchitis POCT RAPID COVID ANTIGEN Routine 11/01/2024 3:39 PM EDT Bronchitis LIPID PANEL, STANDARD Routine 05/12/2023 8:23 AM [...] Recently Relevant to Health Maintenance Results * Influenza B (ID NOW Rapid Molecular) (11/01/2024 3:39 PM EDT) Influenza B Negative Negative, Indeterminate [facility] Swab 11/01/2024 3:39 PM EDT us Pinky Dey DO POINT OF CARE TEST ENTER/PATEL T ORDERABLES Final Result Performing Organization Address [facility]/ZIP Co de Phone Number [facility] [address] [place] [phone] * Influenza A (ID NOW Rapid Molecular) (11/01/2024 3:39 PM EDT) Pathologist [facility] Influenza A Negative Negative, Indeterminate [facility] Swab 11/01/2024 3:39 PM EDT Pinky Dey DO POINT OF CARE TEST ENTER/PATEL T ORDERABLES Final Result Performing Organization Address [facility] Co de Phone Number [facility] [address] [place] [phone] * POCT Rapid COVID Ag (11/01/2024 3:39 PM EDT) Pathologist [facility] Rapid COVID Ag Negative [facility] Swab 11/01/2024 3:39 PM EDT Pinky Yissel DO POINT OF CARE TEST ENTER/PATEL T ORDERABLES Final Result Performing Organization Address [facility] Co de Phone Number [facility] [address] [place] [phone] * (ABNORMAL) Lipid Panel, Standard (05/12/2023 8:23 AM EST) Pathologist [facility] Triglycerides 66 <150 mg/dL [facility] Comment:Desirable Triglyceri de: less than 150 mg/dLBorderline High Triglyceride 150-199 mg/dLHigh Triglyceride: 200-499 mg/dLVery High Triglyceride: greater than or equal to 5OO mg/dL Cholesterol 194 <200 mg/dL [facility] Comment:Desirable Cholestero l: less than 200 mg/dLBorderline High Cholesterol: 200-239 mg/dLHigh Cholesterol: greater than 239 mg/dL LDL Cholesterol Calculated 133(H) <100 mg/dL [facility] Comment:Desirable LDL: less than 100 mg/dLNear Optimal/Above Optimal LDL: 110- 129 mg/dLBorderline High LDL: 130-159 mg/dLHigh LDL: 160-189 mg/dLVery High LDL: greater than or equal to 190 mg/dL HDL Cholesterol 48 >40 mg/dL [facility] Comment:Desirable HDL: great er than 40 mg/dL Note: This HDL assay may give artificially low results in patients with liver disease. Blood Venous blood specimen / Unknown 05/12/2023 8:23 AM EST 05/12/2023 11:19 AM EST Mariah Johnson MD LAB BLOOD ORDERABLES Final Res ult Performing Organization Address [facility] Co de Phone Number [facility] [address] [place] [phone] * Hepatitis C Ab (05/11/2023 9:45 AM EST) Hepatitis C Antibody Nonreactive Nonreactive [facility] Comment:Antibodies to HCV no t detected; does not exclude early acuteHCV infection. Blood Venous blood specimen / Unknown 05/11/2023 9:45 AM EST 05/11/2023 11:09 AM EST Mariah Johnson MD LAB BLOOD ORDERABLES Final Res ult Performing Organization Address [facility] Co de Phone Number [facility] [address] [place] [phone] * HIV-1/2 Antigen and Antibodies, Fourth Generation, with Reflexes (05/11/2023 9:45 AM EST) HIV AB/AG Nonreactive Nonreactive [facility] Comment:HIV-1 p24 Ag and/or HIV-1/HIV-2 Ab not detected.A test result that is nonreactive does not exclude thepossibility of exposure to or infection with HIV-1 and/orHIV-2. Nonreactive results in this assay for individualswith prior exposure to HIV-1 and/or HIV-2 may be due toantigen and antibody levels that are below the limit ofdetection of this assay.The [employer] HIV Ag/Ab Combo assay result andsupplemental assay results should be interpreted inconjunction with the patient's clinical presentation,history and other laboratory results. If the results areinconsistent with clinical evidence, additional testing issuggested to confirm the result. Blood Venous blood specimen / Unknown 05/11/2023 9:45 AM EST 05/11/2023 11:09 AM EST us Mariah Johnson MD LAB BLOOD ORDERABLES Final Res ult [facility] [address] [place] [phone] * (ABNORMAL) Hemoglobin A1c (05/11/2023 9:45 AM EST) Hemoglobin A1c 6.3(H) <6.0 % [facility] Comment:Hemoglobin A1C Refer ence Range Adults: 4.8 - 6.0 % Non diabetic: < 6.0 % Goal: < 7.0 %Additional Action Suggested: > 8.0 %Note: Hemoglobin A1c results are invalid for patients with abnormal amounts of HbF. Blood transfusions may impact the HbA1c concentration in the patient sample. Estimated Average Glucose 134 mg/dL [facility] Comment:eAG = Estimated ave rage glucose which is %A1C expressed asaverage glucose, using the formula of the I1B-QygmntlOtvjdfc Glucose study (ADAG), Diabetes Care, Vol.31,#8,2007 Blood Venous blood specimen / Unknown 05/11/2023 9:45 AM EST 05/11/2023 11:03 AM EST Mariah Johnson MD LAB BLOOD ORDERABLES Final Res ult [facility] [address] [place] [address] [phone] from Last 3 Months or Most Recently Relevant to Health Maintenance Insurance [employer] [id number] Care Teams Mail Truck Driver Relationship Specialty Start Date End Date Mariah Johnson MD [address] [place] [phone] PCP - General Family Medicine 04/21/23
== END 2024-11-01 15:40 | disposition home or self-care (01) ==
LOC: HO.HHCX 15:39
PROVIDERS: PCP Family Medicine; Visit Provider Family Medicine
DX: J40 Bronchitis, not specified as acute or chronic (principal)
CPT/HCPCS: 71046

== ENCOUNTER → 2024-11-01 15:41 | Outpatient (BNV) | payer OTHER, SELFPAY | PROVIDERS: PCP Family Medicine; Visit Provider Radiology Diagnostic Radiology | DX: J98.11 Atelectasis (principal) | CPT/HCPCS: 71046 ==

== ENCOUNTER 2025-01-17 15:29 | Outpatient (REF) | payer OTHER, SELFPAY ==
--- OUTSIDE RECORDS SUMMARY | 2025-01-17 15:54 | XMS_ITS | Clinical Summary ---
Author Organization [employer] Address [address] [place] [address] 7[address] [place] [address] Care Team Providers Care In Flight Refueling System Repairer Name Role Phone Mariah Bhatia MD Primary Care Provider [phone] Allergies No known active allergies Medications QUEtiapine (SEROquel) 100 MG tablet 3 Active traZODone (Desyrel) 50 MG tablet 3 Active venlafaxine (Effexor) 75 MG tablet 3 Active baclofen (Lioresal) 10 MG tablet 4 [...] per day. 90 tablet 3 4 Active azithromycin (Zithromax) 250 MG tablet Take two tablets PO today then take one tablet PO daily for the next four days 6 tablet 5 Active albuterol 108 (90 Base) MCG/ACT inhaler Inhale 2 puffs every 4 (four) hours if needed for wheezing or shortness of breath. 18 g 5 Active cetirizine (ZyrTEC) 10 MG tablet Take 1 tablet (10 mg) by mouth Once per day. 30 tablet 3 5 11/02/19 26 Active fluticasone (Flonase) 50 MCG/ACT nasal spray Administer 2 sprays into each nostril Once per day. Shake gently. Before first use, prime pump. After use, clean tip and replace cap. 16 g 3 5 11/02/19 26 Active Active Problems Problem Noted Date Diagnosed [...] present on ER note of 01/23/23 at [facility] Will continue to offer medication support Noncompliance [...] Encounters Date Type Department Care Team Description 01/04/[address] [address] Mariah Bhatia MD appt with Dr bhatia 12/24/2024 3:15 PM EDT Office Visit [address] [address] Rosie Hines NP Elevated blood pressure reading in office with diagnosis of hypertension (Primary Dx); Numbness of fingers 12/24/2024 Travel 12/21/[address] [address] Danny Rucker [place] CHART PREP 12/19/[address] [address] Mariah Bhatia MD telephone call 11/01/2024 2:40 PM EDT Office Visit [facility] [address] [place] [phone] Pinky Dey DO Bronchitis (Primary Dx) 11/01/2024 Travel from Last [...] Sign Reading Time Taken Comments Blood Pressure 160/100 12/24/2024 3:54 PM EDT Pulse 63 12/24/2024 3:53 PM EDT Temperature 36.9 C (98.4 F) 12/24/2024 3:53 PM EDT Respiratory Rate 16 12/24/2024 3:53 PM EDT Oxygen Saturation 98% 12/24/2024 3:53 PM EDT Inhaled Oxygen Concentration - - Weight 109 kg (240 lb 3.2 oz) 12/24/2024 3:53 PM EDT Height 175.3 cm (5' 9 ) 12/24/2024 3:53 PM EDT Body Mass Index 35.47 12/24/2024 3:53 PM EDT Plan of Treatment Health Maintenance [...] 05/09/20 23 Diabetes: Hemoglobin A1C 05/11/2024 05/11/2023, 12/0 02/2020 SDOH Screening 10/20/2024 10/21/2023 Influenza Vaccine (#1) 2025 , 04/18/2023, 03/03/2022, Additional history exists Tobacco Screening 07/18/2025 07/18/2024 Lipid Panel 05/12/2028 05/12/2023, 05/14/2020 DTaP/Tdap/Td Vaccines (4 - Td or Tdap) 10/05/2032 10/05/2022, 11/15/2014, 06/04/2011 RSV Patients and Patients Aged 60 years or older (1 - 1-dose 75+ series) 2037 HIV Screening Completed 05/11/2023 Hepatitis C Screening Completed 05/11/2023 HIB Vaccines Aged Out No longer eligi [...] Procedure Name Priority Date/Time Associated Diagnosis Comments XR CHEST 2 VIEWS STAT 11/01/2024 3:40 PM EDT Bronchitis POCT INFLUENZA B (ID NOW RAPID MOLECULAR) [...] Recently Relevant to Health Maintenance Results * XR Chest 2 Views (11/01/2024 3:40 PM EDT) Anatomical Region Laterality Modality Chest Radiographic Essence ging 11/01/2024 3:40 PM EDT Narrative 11/01/2024 4:00 PM EDT [facility] [address] [place] [address] XRay Report Signed Patient: Hoang Le MR#: [id number] : 1960 Acct:[id number] Age/Sex: 64 / M ADM Date: 11/01/24 Loc: .[facility] Attending Dr: Pinky Dey DO Ordering Physician: Pinky Dey DO Date of Service: 11/01/24 Procedure(s): XR chest 2V Accession Number(s): [id number] cc: Pinky Dey DO EXAMINATION: XR CHEST CLINICAL INFORMATION: cough and SOB x one week r/o PNA COMPARISON: 07/27/2023. TECHNIQUE: 2 views of the chest were obtained. FINDINGS: The cardiac, hilar, and mediastinal contours are normal. The lungs demonstrate prominent interstitial lung markings, similar to the prior exam. Mild pulmonary hyperaeration. Mild bibasilar atelectasis. There is no pneumothorax or pleural effusion. There is no focal osseous or soft tissue abnormality. XR/XR chest 2V IMPRESSION: 1. Stable prominent interstitial pulmonary markings. 2. Mild bibasilar linear type atelectasis. 3. Otherwise, no focal pneumonia or active disease. Electronically signed by: Aung Pemberton MD 11/01/2024 03:57 PM EDT Dictated By: Aung Pemberton MD Signed By: <Electronically signed by Aung Pemberton MD in OV> 11/01/24 1557 DD/ 1540 TD/TT: 11/01/24 154 Automation Developer: Procedure Note Donotuseinterpreter, Image - 11/01/2024 [facility] [address] [facility] [place] [address] XRay Report Signed Patient: Hoang LeMR#: [id number] : 1960Acct:[id number] Age/Sex: 64 / MADM Date: 11/01/24 [facility]: Pinky Dey DO Ordering Physician: Pinky Dey DO Date of Service: 11/01/24 Procedure(s): XR chest 2V Accession Number(s): [id number] cc: Pinky Dey DO EXAMINATION: XR CHEST CLINICAL INFORMATION: cough and SOB x one week r/o PNA COMPARISON: 07/27/2023. TECHNIQUE: 2 views of the chest were obtained. FINDINGS: The cardiac, hilar, and mediastinal contours are normal. The lungs demonstrate prominent interstitial lung markings, similar to the prior exam. Mild pulmonary hyperaeration. Mild bibasilar atelectasis. There is no pneumothorax or pleural effusion. There is no focal osseous or soft tissue abnormality. XR/XR chest 2V IMPRESSION: 1. Stable prominent interstitial pulmonary markings. 2. Mild bibasilar linear type atelectasis. 3. Otherwise, no focal pneumonia or active disease. Electronically signed by: Aung Pemberton MD 11/01/2024 03:57 PM EDT Dictated By: Aung Pemberton MD Signed By: <Electronically signed by Aung Pemberton MD in OV> 11/01/24 1557 DD/ 1540 TD/TT: 11/01/24 1545 Automation Developer: us Pinky Dey DO IMG XR PROCEDURES Final Resu lt * Influenza B (ID NOW Rapid Molecular) (11/01/2024 3:39 PM EDT) Influenza B Negative Negative, Indeterminate [facility] Swab 11/01/2024 3:39 PM EDT us Pinky Dey DO POINT OF CARE TEST ENTER/PATEL T ORDERABLES Final Result Performing Organization Address [facility]/ZIP Co de Phone Number [facility] [address] [place] [phone] * Influenza A (ID NOW Rapid Molecular) (11/01/2024 3:39 PM EDT) Influenza A Negative Negative, Indeterminate [facility] Swab 11/01/2024 3:39 PM EDT Pinky Lockwoodlinda DO POINT OF CARE TEST ENTER/PATEL T ORDERABLES Final Result Performing Organization Address [facility] Co de Phone Number [facility] [address] [place] [phone] * POCT Rapid COVID Ag (11/01/2024 3:39 PM EDT) Rapid COVID Ag Negative [facility] Swab 11/01/2024 3:39 PM EDT Pinky Dey DO POINT OF CARE TEST ENTER/PATEL T ORDERABLES Final Result Performing Organization Address [facility] Co de Phone Number [facility] [address] [place] [phone] * (ABNORMAL) Lipid Panel, Standard (05/12/2023 8:23 AM EST) Triglycerides 66 <150 mg/dL [facility] Comment:Desirable Triglyceri de: less than 150 mg/dLBorderline High Triglyceride 150-199 mg/dLHigh Triglyceride: 200-499 mg/dLVery High Triglyceride: greater than or equal to 5OO mg/dL Cholesterol 194 <200 mg/dL [facility] Comment:Desirable Cholestero l: less than 200 mg/dLBorderline High Cholesterol: 200-239 mg/dLHigh Cholesterol: greater than 239 mg/dL LDL Cholesterol Calculated 133(H) <100 mg/dL [facility] Comment:Desirable LDL: less than 100 mg/dLNear Optimal/Above Optimal LDL: 110- 129 mg/dLBorderline High LDL: 130-159 mg/dLHigh LDL: 160-189 mg/dLVery High LDL: greater than or equal to 190 mg/dL HDL Cholesterol 48 >40 mg/dL [facility] Comment:Desirable HDL: great er than 40 mg/dL Note: This HDL assay may give artificially low results in patients with liver disease. Blood Venous blood specimen / Unknown 05/12/2023 8:23 AM EST 05/12/2023 11:19 AM EST Mariah Bhatia MD LAB BLOOD ORDERABLES Final Res ult Performing Organization Address [facility] Co de Phone Number [facility] [address] [place] [phone] * Hepatitis C Ab (05/11/2023 9:45 AM EST) Hepatitis C Antibody Nonreactive Nonreactive [facility] Comment:Antibodies to HCV no t detected; does not exclude early acuteHCV infection. Blood Venous blood specimen / Unknown 05/11/2023 9:45 AM EST 05/11/2023 11:09 AM EST Mariah Bhatia MD LAB BLOOD ORDERABLES Final Res ult Performing Organization Address [facility] Co de Phone Number [facility] [address] [place] [phone] * HIV-1/2 Antigen and Antibodies, Fourth Generation, with Reflexes (05/11/2023 9:45 AM EST) HIV AB/AG Nonreactive Nonreactive [facility] Comment:HIV-1 p24 Ag and/or HIV-1/HIV-2 Ab not detected.A test result that is nonreactive does not exclude thepossibility of exposure to or infection with HIV-1 and/orHIV-2. Nonreactive results in this assay for individualswith prior exposure to HIV-1 and/or HIV-2 may be due toantigen and antibody levels that are below the limit ofdetection of this assay.The MC2niInviBox HIV Ag/Ab Combo assay result andsupplemental assay results should be interpreted inconjunction with the patient's clinical presentation,history and other laboratory results. If the results areinconsistent with clinical evidence, additional testing issuggested to confirm the result. Blood Venous blood specimen / Unknown 05/11/2023 9:45 AM EST 05/11/2023 11:09 AM EST us Mariah Bhatia MD LAB BLOOD ORDERABLES Final Res ult Performing Organization Address [facility] Co de Phone Number [facility] [address] [place] [phone] * (ABNORMAL) Hemoglobin A1c (05/11/2023 9:45 AM EST) Hemoglobin A1c 6.3(H) <6.0 % [facility] Comment:Hemoglobin A1C Refer ence Range Adults: 4.8 - 6.0 % Non diabetic: < 6.0 % Goal: < 7.0 %Additional Action Suggested: > 8.0 %Note: Hemoglobin A1c results are invalid for patients with abnormal amounts of HbF. Blood transfusions may impact the HbA1c concentration in the patient sample. Estimated Average Glucose 134 mg/dL [facility] Comment:eAG = Estimated ave rage glucose which is %A1C expressed asaverage glucose, using the formula of the G3T-DmaplytKhktiwt Glucose study (ADAG), Diabetes Care, Vol.31,#8,Jan. 2007 Blood Venous blood specimen / Unknown 05/11/2023 9:45 AM EST 05/11/2023 11:03 AM EST us Mariah Bhatia MD LAB BLOOD ORDERABLES Final Res ult Performing Organization Address [facility] Co de Phone Number [facility] [address] [place] [phone] from Last 3 Months or Most Recently Relevant to Health Maintenance Insurance [employer] [id number] Care Teams In Flight Refueling System Repairer Relationship Specialty Start Date End Date Mariah Bhatia MD [address] [place] [phone] PCP - General Family Medicine 04/21/23
[2025-01-17 16:29] LABS: MANUAL DIFF FLAG NO
[2025-01-17 16:46] LABS: Hematocrit 42.1 % (42.0-52.0); Hemoglobin 14.5 g/dl (14.0-18.0); Imm Gran Abs Auto 0.02 X10*3/uL (0.00-0.03); Imm Gran Pct Auto 0.4 % (0.0-0.4); Lymphocytes Absolute Auto 1.6 X10*3/uL (1.2-4.9); Mean Corpuscular HGB Conc 34.4 g/dl (31.0-36.0); Mean Corpuscular Hemoglobin 29.4 pg (27.0-33.0); Mean Corpuscular Volume 85.2 fL (80.0-98.0); NRBC Abs Auto 0.000 X10*3/uL (0.0-0.012); NRBC Pct Auto 0.0 /100WBC (0.0-0.2); Platelet Count 287 X10*3/uL (160-400); Red Blood Count 4.94 X10*6/uL (4.60-5.80); White Blood Count 5.6 X10*3/uL (4.8-10.8)
[2025-01-17 17:02] LABS: Cannabinoid Screen Urine Not Detected (Not Detect)
[2025-01-17 17:07] LABS: Lithium 0.10 mmol/L (0.60-1.20)
== END 2025-01-17 15:30 | disposition home or self-care (01) ==
LOC: HO.HHCL 15:29
PROVIDERS: PCP Family Medicine; Visit Provider Nurse Practitioner Psychiatric/Mental Health
DX: Z79.899 Other long term (current) drug therapy (principal); Z51.81 Encounter for therapeutic drug level monitoring
CPT/HCPCS: 36415; 80178; 80307; 85025

== ENCOUNTER 2025-03-28 09:18 | Outpatient (REF) | payer OTHER, SELFPAY ==
--- OUTSIDE RECORDS SUMMARY | 2025-03-28 08:40 | XMS_ITS | Encounter Summary ---
Author Organization [employer] Address [address] [facility] 7t [place] [address] Care Team Providers Care Engineering Department Chair Name Role Phone Mariah Johnson MD Primary Care Provider [phone] Reason for Visit * Reason Comments Rash Encounter Details Date Type Department Care Team ([facility] Contact Info) Description 03/28/2025 8:40 AM EDT Office Visit [facility] [address] [place], [place] [phone] Uriel Michel MD [address] [place], [place] [phone] Attila (Primary Dx) Social History Tobacco Use Types Packs/Day Years [...] Sign Reading Time Taken Comments Blood Pressure 165/102 03/28/2025 8:55 AM EDT Pulse 75 03/28/2025 8:55 AM EDT Temperature 36.8 C (98.2 F) 03/28/2025 8:55 AM EDT Respiratory Rate 18 03/28/2025 8:55 AM EDT Oxygen Saturation 96% 03/28/2025 8:55 AM EDT Inhaled Oxygen Concentration - - Weight 106 kg (234 lb) 03/28/2025 8:55 AM EDT Height - - Body Mass Index 34.56 12/24/2024 3:53 PM EDT documented in this encounter Progress Notes * Uriel Michel MD - 03/28/2025 8:40 AM EDT Subjective History was provided by the patient. Hoang Le is a 64 y.o. male who presents for evaluation of ulcers on right thumb, right buttock, and right chest wall area. Reports the area is slightly painful. No itching. Denies any purulent discharge. Started about 7 days ago. Denies F/C/N/V/D. Denies penile discharge or dysuria/hematuria. Denies cough, congestion, rhinorrhea, or sore throat. Originally from [place], but no recent travel. Statesmonogamous AFAB partner for 20 years. Objective Vitals: 03/28/25 0855 BP: (!) 165/102 BP Location: Left arm Patient Position: Sitting BP Cuff Size: Adult Pulse: 75 Resp: 18 Temp: 98.2 ??F (36.8 ??C) TempSrc: Temporal SpO2: 96% Weight: 234 lb (106 kg) Physical Exam Constitutional: General: He is not in acute distress. Appearance: Normal appearance. He is not ill-appearing, toxic-appearing or diaphoretic. HENT: Right Ear: External ear normal. Left Ear: External ear normal. Mouth/Throat: Pharynx: Oropharynx is clear. Eyes: Extraocular Movements: Extraocular movements intact. Conjunctiva/sclera: Conjunctivae normal. Pulmonary: Effort: Pulmonary effort is normal. Musculoskeletal: General: Normal range of motion. Comments: No axillary LAD bilaterally Lymphadenopathy: Cervical: No cervical adenopathy. Skin: General: Skin is warm and dry. Comments: 1-2 cm ulcers with raised indurated margin on right thumb, right buttock, and right upperchest; non-exudative Neurological: General: No focal deficit present. Mental Status: He is alert and oriented to person, place, and time. Psychiatric: Mood and Affect: Mood normal. Behavior: Behavior normal. Hoang was seen today for rash. Diagnoses and all orders for this visit: [place] (Primary) - Chlamydia/N. Gonorrhoeae RNA, TMA, Urogenitial; Future - Hepatitis A Antibody, Total; Future - Hepatitis B Core Antibody, Total; Future - Hepatitis B Surface Antibody, Qualitative; Future - Hepatitis B surface antigen, EIA; Future - Hepatitis C Antibody with Reflex to HCV, RNA, Quantitative, Real-Time PCR; Future - HIV-1/2 Antigen and Antibodies, Fourth Generation, with Reflexes; Future - Syphilis Screen; Future - CBC auto differential; Future Patient presents to [facility] with several painful chancres with onset 7 days ago Denies any risk factors for STI Denies any recent travel Denies constitutional symptoms No purulent discharge Will check Syphilis lab and other STI labs Check CBC Indications for UC/ER use reviewed Advised to contact the clinic if persistent or worsening symptoms Wound care reviewed documented in this encounter Plan of Treatment Scheduled Orders Name Type Priority Associated Diagnoses Orde r Schedule Chlamydia/N. Gonorrhoeae RNA, TMA, Urogenitial Microbiology Routine [place] Expected: 03/28/2025 (Approximate), Expires: 03/28/2026 Hepatitis A Antibody, Total Lab Routine [place] Expected: 03/28/2025 (Approximate), Expires: 03/28/2026 Hepatitis B Core Antibody, Total Lab Routine [place] Expected: 03/28/2025 (Approximate), Expires: 03/28/2026 Hepatitis B Surface Antibody, Qualitative Lab Routine [place] Expected: 03/28/2025 (Approximate), Expires: 03/28/2026 Hepatitis B surface antigen, EIA Lab Routine [place] Expected: 03/28/2025 (Approximate), Expires: 03/28/2026 Hepatitis C Antibody with Reflex to HCV, RNA, Quantitative, Real-Time PCR Lab Routine [place] Expected: 03/28/2025 (Approximate), Expires: 03/28/2026 HIV-1/2 Antigen and Antibodies, Fourth Generation, with Reflexes Lab Routine [place] Expected: 03/28/2025 (Approximate), Expires: 03/28/2026 Syphilis Screen Lab Routine [place] Expected: 03/28/2025 (Approximate), Expires: 03/28/2026 CBC auto differential Lab Routine [place] Expected: 03/28/2025 (Approximate), Expires: 03/28/2026 documented as of this encounter Visit Diagnoses Diagnosis [place]- Primary Early syphilis, genital (primary) documented in this encounter Additional Health Concerns Assessment Noted Time PHQ-9 Depression Total Score: 0 05/09/20 10:13 AM EST documented as of this encounter Care Teams Engineering Department Chair Relationship Specialty Start Date End Date Mariah Johnson MD [address] [place] [phone] PCP - General Family Medicine 04/21/23 documented as of this encounter
--- OUTSIDE RECORDS SUMMARY | 2025-03-28 10:18 | XMS_ITS | Encounter Summary ---
Demographics Address [address] [place] [address] Mobile Phone Home Phone Work Phone Email Address Preferred Language es Marital Status Episcopalian Affiliation Unknown Race Other Race Ethnic Group Unknown Author Organization [employer] [facility] [employer] Address [address] [facility] 7t [place] [address] Care Team Providers Care Licensed Certified Orthotist Name Role Phone Mariah Johnson MD Primary Care Provider [phone] Encounter Details Date Type Department Care Team (Late st Contact Info) Description 05/16/2023 Orders Only [facility] [address] [place], [place] [phone] Mariah Johnson MD [address] [place], [place] [phone] Social History Tobacco Use Types Packs/Day Years [...] HIGH SENSITIVITY 3.5 <3.5 - 35.0 ng/L [facility] Comment:The [place] high sens itivity Troponin-I results should beused in conjunction with other diagnostic information suchas ECG, clinical observations and information, and patientsymptoms to aid in the diagnosis of [place]. 07/27/2023 10:0 7 AM EST 07/27/2023 10:12 AM EST us Generic External Data Provider LAB BLOOD ORDERAB LES Final Result [facility] [address] [place] [phone] * Drug Monitoring, Panel 1, Screen, Urine (07/12/2023 12:07 PM EST) Opiate Screen Urine Not Detected Not Detect [facility] Comment:Opiate cut-off is 30 0 ng/mL.Positive results are unconfirmed and should not be used fornon-medical purposes. Barbiturates, Urine Not Detected Not Detect [facility] Comment:Barbiturate cut-off is 200 ng/mL.Positive results are unconfirmed and should not be used fornon-medical purposes. Phencyclidine Screen Urine Not Detected Not Detect [facility] Comment:Phencyclidine cut-of f is 25 ng/mL.Positive results are unconfirmed and should not be used fornon-medical purposes. Amphetamine Screen Urine Not Detected Not Detect [facility] Comment:Amphetamine cut-off is 1000 ng/mL.Positive results are unconfirmed and should not be used fornon-medical purposes. Benzodiazepines Screen Urine Not Detected Not Detect [facility] Comment:Benzodiazepine cut-o ff is 200 ng/mL.Positive results are unconfirmed and should not be used fornon-medical purposes. Cocaine Screen Urine Not Detected Not Detect [facility] Comment:Cocaine cut-off is 3 00 ng/mL.Positive results are unconfirmed and should not be used fornon-medical purposes. Cannabinoid Screen Urine Not Detected Not Detect [facility] Comment:Cannabinoid cut-off is 50 ng/mL.Positive results are unconfirmed and should not be used fornon-medical purposes. FENTANYL URINE Not Detected Not Detect [facility] Comment:Fentanyl cut-off is 1 ng/mL.Positive results are unconfirmed and should not be used fornon-medical purposes. 07/12/2023 12:0 7 PM EST 07/12/2023 12:10 PM EST us Generic External Data Provider LAB URINE ORDERAB LES Final Result [facility] [address] [place] [phone] documented in this encounter Visit Diagnoses Not on filedocumented in this encounter Additional Health Concerns Assessment Noted Time PHQ-9 Depression Total Score: 0 05/09/20 23 10:13 AM EST documented as of this encounter Care Teams Licensed Certified Orthotist Relationship Specialty Start Date End Date Mariah Johnson MD [address] [place] [phone] PCP - General Family Medicine 04/21/23 documented as of this encounter
--- OUTSIDE RECORDS SUMMARY | 2025-03-28 10:18 | XMS_ITS | Encounter Summary ---
Author Organization [employer] Address [address] [facility] 7t [place] [address] Care Team Providers Care Rayon Winder Name Role Phone Mariah Johnson MD Primary Care Provider [phone] Encounter Details Date Type Department Care Team (Latest Contact Info) Description 03/28/2025 Travel Social History Tobacco Use Types Packs/Day Years [...] on file documented as of this encounter Visit Diagnoses Not on filedocumented in this encounter Additional Health Concerns Assessment Noted Time PHQ-9 Depression Total Score: 0 05/09/20 10:13 AM EST documented as of this encounter Care Teams Rayon Winder Relationship Specialty Start Date End Date Mariah Johnson MD [address] [place] [phone] PCP - General Family Medicine 04/21/23 documented as of this encounter
--- OUTSIDE RECORDS SUMMARY | 2025-03-28 10:18 | XMS_ITS | Encounter Summary ---
Author Organization [employer] Address [address] [facility] 7t [place] [address] Care Team Providers Care Revenue Analyst Name Role Phone Mariah Johnson MD Primary Care Provider [phone] Reason for Visit * Reason Comments Med Refill Encounter Details Date Type Department Care Team ([facility] Contact Info) Description 03/28/2025 Refill [facility] [address] [place], [place] [phone] Pinky Dey DO [address] [place], [place] [phone] Social History Tobacco Use Types Packs/Day Years [...] documented as of this encounter Care Teams Revenue Analyst Relationship Specialty Start Date End Date Mariah Johnson MD [address] [place] [phone] PCP - General Family Medicine 04/21/23 documented as of this encounter
--- OUTSIDE RECORDS SUMMARY | 2025-03-28 10:18 | XMS_ITS | Clinical Summary ---
Author Organization [employer] Address [address] [place] [address] [address] [place] [address] Care Team Providers Care County Administrator Name Role Phone Mariah Bhatia MD Primary Care Provider [phone] Allergies No known active allergies Medications QUEtiapine [...] cloNIDine (Catapres) 0.1 MG tablet 4 Active azithromycin (Zithromax) 250 MG tablet Take two tablets PO today then take one tablet PO daily for the next four days 6 tablet 5 Active cetirizine (ZyrTEC) 10 MG tablet Take 1 tablet (10 mg) by mouth Once per day. 30 tablet 3 5 11/02/19 26 Active fluticasone (Flonase) 50 MCG/ACT nasal spray Administer 2 sprays into each nostril Once per day. Shake gently. Before first use, prime pump. After use, clean tip and replace cap. 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 (CMS/HCC) 05/11/2023 Assessment & Plan (11/03/2023 2:45 PM EDT): With SI requiring hospitalization and outpatient IOP twice in the past year He denies SI/HI currently Is excited and nervous to transition back to life Assessment & Plan (05/11/2023 8:18 AM EST): Per pt, he does not want to restart his meds No auditory hallucinations or SI, as present [place] [facility] [place] continue to offer medication support Noncompliance [...] Date Diagnosed Date Resolved Date Morbid obesity (CMS/HCC) 05/05/2023 05/05/202311/2022 Type 2 diabetes mellitus 05/05/2023 05/05/202311/2022 Encounters Date Type Department Care Team Description 03/28/2025 8:40 AM EDT Office Visit [facility] [address] [place] [phone] Uriel Michel MD [place] (Primary Dx) 03/28/2025 Travel 03/28/2025 Refill [facility] [address] [place] [address] [phone] Pinky Dey, 02/11/2025 Refill [facility] [address] [place] [address] [phone] Pinky Dey, 02/11/2025 Refill [facility] [address] [place] [phone] Mariah Bhatia MD 01/04/2025 Telephone [facility] [address] [place] [address] [phone] Mariah Bhatia MD appt with Dr bhatia from Last 3 Months Immunizations Immunization Administration [...] (234 lb) 03/28/2025 8:55 AM EDT Height 175.3 cm (5' 9 ) 12/24/2024 3:53 PM EDT Body Mass Index 34.56 12/24/2024 3:53 PM EDT Plan of Treatment Health Maintenance Due Date Last Done Comments CT Colonography 1962 Colonoscopy 1962 Colorectal Cancer Screening 1962 FIT DNA/Cologuard 1962 FIT 1962 FOBT 1962 Sigmoidoscopy 1962 Disability Screening 1962 Alcohol/Substance Use Screening 1974 Zoster Vaccines (1 of 2) 2012 Pneumococcal Vaccine: 50+ Years (2 of 2 - PCV) 11/16/2015 11/15/2014, 03/06/2008 Depression Screening 05/09/2024 05/09/2023, 05/09/20 Diabetes: Hemoglobin A1C 05/11/2024 05/11/2023, 1202/2020 SDOH Screening 10/20/2024 10/21/2023 COVID-19 Vaccine ( season) 2025 03/10/2022, 05/19/2021, 10/22/2020 Influenza Vaccine (#1) 2025 , 04/18/2023, 03/03/2022, Additional history exists Tobacco Screening 03/28/2026 03/28/2025 Lipid Panel 05/12/2028 05/12/2023, 05/14/2020 DTaP/Tdap/Td Vaccines [...] 8:23 AM EST) Triglycerides 66 <150 mg/dL [facility] Comment:Desirable Triglyceri de: less than 150 mg/dLBorderline High Triglyceride 150-199 mg/dLHigh Triglyceride: 200-499 mg/dLVery High Triglyceride: greater than or equal to 5OO mg/dL Cholesterol 194 <200 mg/dL [facility] Comment:Desirable Cholestero l: less than 200 mg/dLBorderline High Cholesterol: 200-239 mg/dLHigh Cholesterol: greater than 239 mg/dL LDL Cholesterol Calculated 133(H) <100 mg/dL [facility] Comment:Desirable LDL: less than 100 mg/dLNear Optimal/Above Optimal LDL: 110- 129 mg/dLBorderline High LDL: 130-159 mg/dLHigh LDL: 160-189 mg/dLVery High LDL: greater than or equal to 190 mg/dL HDL Cholesterol 48 >40 mg/dL [facility] Comment:Desirable HDL: great er than 40 mg/dL Note: This HDL assay may give artificially low results in patients with liver disease. Blood Venous blood specimen / Unknown 05/12/2023 8:23 AM EST 05/12/2023 11:19 AM EST Mariah Bhatia MD LAB BLOOD ORDERABLES Final Res ult Performing Organization Address [facility] Co de Phone Number [facility] [address] [place] [phone] * Hepatitis C Ab (05/11/2023 9:45 AM EST) Hepatitis C Antibody Nonreactive Nonreactive [facility] Comment:Antibodies to HCV no t detected; does not exclude early acuteHCV infection. Blood Venous blood specimen / Unknown 05/11/2023 9:45 AM EST 05/11/2023 11:09 AM EST Mariah Bhatia MD LAB BLOOD ORDERABLES Final Res ult Performing Organization Address [facility] Co de Phone Number [facility] [address] [place] [address] [phone] * HIV-1/2 Antigen and Antibodies, Fourth Generation, with Reflexes (05/11/2023 9:45 AM EST) HIV AB/AG Nonreactive Nonreactive [facility] Comment:HIV-1 p24 Ag and/or HIV-1/HIV-2 Ab not detected.A test result that is nonreactive does not exclude thepossibility of exposure to or infection with HIV-1 and/orHIV-2. Nonreactive results in this assay for individualswith prior exposure to HIV-1 and/or HIV-2 may be due toantigen and antibody levels that are below the limit ofdetection of this assay.The [employer] HIV Ag/Ab Combo assay result andsupplemental assay results should be interpreted inconjunction with the patient's clinical presentation,history and other laboratory results. If the results areinconsistent with clinical evidence, additional testing issuggested to confirm the result. Blood Venous blood specimen / Unknown 05/11/2023 9:45 AM EST 05/11/2023 11:09 AM EST Mariah Bhatia MD LAB BLOOD ORDERABLES Final Res ult Performing Organization Address [facility]/ZIP Co de Phone Number [facility] [address] [place] [phone] * (ABNORMAL) Hemoglobin A1c (05/11/2023 9:45 AM EST) Hemoglobin A1c 6.3(H) <6.0 % [facility] Comment:Hemoglobin A1C Refer ence Range Adults: 4.8 - 6.0 % Non diabetic: < 6.0 % Goal: < 7.0 %Additional Action Suggested: > 8.0 %Note: Hemoglobin A1c results are invalid for patients with abnormal amounts of HbF. Blood transfusions may impact the HbA1c concentration in the patient sample. Estimated Average Glucose 134 mg/dL [facility] Comment:eAG = Estimated ave rage glucose which is %A1C expressed asaverage glucose, using the formula of the C0U-YkyehesPjkzgue Glucose study (ADAG), Diabetes Care, Vol.31,#8,2007 Blood Venous blood specimen / Unknown 05/11/2023 9:45 AM EST 05/11/2023 11:03 AM EST us Mariah Bhatia MD LAB BLOOD ORDERABLES Final Res ult Performing Organization Address [facility]/ZIP Co de Phone Number [facility] [address] [place] [phone] from Last 3 Months or Most Recently Relevant to Health Maintenance Insurance [facility] ONE CARE < [address] [place] [id number] Care Teams County Administrator Relationship Specialty Start Date End Date Mariah Bhatia MD [address] [facility] [place] [address] PCP - General Family Medicine 04/21/23
[2025-03-28 11:45] LABS: MANUAL DIFF FLAG NO
[2025-03-28 11:49] LABS: Hematocrit 45.8 % (42.0-52.0); Hemoglobin 14.7 g/dl (14.0-18.0); Imm Gran Abs Auto 0.03 X10*3/uL (0.00-0.03); Imm Gran Pct Auto 0.5 % (0.0-0.4); Lymphocytes Absolute Auto 1.6 X10*3/uL (1.2-4.9); Mean Corpuscular HGB Conc 32.1 g/dl (31.0-36.0); Mean Corpuscular Hemoglobin 27.9 pg (27.0-33.0); Mean Corpuscular Volume 86.9 fL (80.0-98.0); NRBC Abs Auto 0.000 X10*3/uL (0.0-0.012); NRBC Pct Auto 0.0 /100WBC (0.0-0.2); Platelet Count 294 X10*3/uL (160-400); Red Blood Count 5.27 X10*6/uL (4.60-5.80); White Blood Count 5.8 X10*3/uL (4.8-10.8)
[2025-03-28 12:17] LABS: HBS Num1 2.50 mIU/mL (0-7.99); HBc Num1 0.09 S/CO (0.00-0.79); HBsAGNum1 0.34 S/CO (0.00-0.99); HIV Num 1 0.07 S/CO (0.00-0.99); Hepatitis B Surface Antigen Negative (Negative); ~HepC Num1 0.08 S/CO (0.00-0.79); ~Hepatitis B Surface Antibody NONREACTIVE (Nonreactive); ~Hepatitis C Antibody Nonreactive (Nonreactive)
[2025-03-28 12:21] LABS: Syphilis Screen Nonreactive (Nonreactive)
[2025-03-29 04:38] LABS: ~Hepatitis A Antibody IgG 0.63 S/CO (0.00-0.99)
== END 2025-03-28 09:19 | disposition home or self-care (01) ==
LOC: HO.HHCL 09:18
PROVIDERS: PCP Family Medicine; Visit Provider Family Medicine
DX: Z11.4 Encounter for screening for human immunodeficiency virus [HIV] (principal); A51.0 Primary genital syphilis
CPT/HCPCS: 36415; 85025; 86704; 86706; 86708; 86780; 86803; 87340; 87389

== ENCOUNTER 2025-05-28 13:50 | Outpatient (REF) | payer OTHER, SELFPAY ==
--- OUTSIDE RECORDS SUMMARY | 2025-05-28 15:04 | XMS_ITS | Clinical Summary ---
Author Organization [employer] Address [address] [place] [address] [address] [place] [address] Care Team Providers Care Certified [employer] Administrator Name Role Phone Mariah Johnson MD Primary [...] next four days 6 tablet 5 Active lisinopril 30 MG tablet TAKE 1 TABLET BY MOUTH ONCE DAILY 90 tablet 5 Active albuterol 108 (90 Base) MCG/ACT inhaler INHALE 2 PUFFS BY MOUTH EVERY 4 HOURS NEEDED FOR WHEEZING OR SHORTNESS OF BREATH 18 g 5 Active cetirizine (ZyrTEC) 10 MG tablet TAKE 1 TABLET BY MOUTH EVERY DAY 30 tablet 3 5 Active fluticasone (Flonase) 50 MCG/ACT nasal spray INSTILL 2 SPRAYS IN EACH NOSTRIL ONCE DAILY 16 g 3 5 Active Active Problems Problem Noted Date Diagnosed Date Obesity (BMI 30.0-34.9) 05/11/2023 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 without prior [...] present on ER note of 01/23/23 at [facility] Will continue to offer medication support Noncompliance [...] Description 03/28/2025 8:40 AM EDT Office Visit [facility] [address] [place] [phone] Uriel Michel MD [place] (Primary Dx) 03/28/2025 Travel 03/28/2025 Refill [facility] [address] [place] [phone] Pinky Dey DO from Last 3 Months Immunizations Immunization Administration Dates Next Due Influenza injectable quadriv alent IIV4 with preservative 03/25/2015 Influenza injectable quadriv alent preservative free 04/18/2023,03/03/2022,06/29/2021,03/27,04/20/2019,04/11/2017 Influenza, IIV3, injectable 03/26/2008,1 07/21/2006,04/13/2006,04/20 Influenza, Injectable, MDCK, preservative free 03/28/2025 Influenza, Split (incl. ken fied surface antigen) [...] 05/11/2024 05/11/2023, 02/2020 SDOH Screening 10/20/2024 10/21/2023 COVID-19 Vaccine ( - season) 2025 03/10/2022, 05/19/2021, 10/22/2020 Tobacco Screening 03/28/2026 03/28/2025 Lipid Panel 05/12/2028 05/12/2023, 05/14/2020 DTaP/Tdap/Td Vaccines (4 - Td or Tdap) 10/05/2032 10/05/2022, 11/15/2014, 06/04/2011 RSV Patients and Patients Aged 60 years or older (1 - 1-dose 75+ series) 2037 HIV Screening Completed 03/28/2025, 05/11/2023 Hepatitis C Screening Completed 03/28/2025, 023 Influenza Vaccine Completed 03/28/2025, , 04/18/2023, Additional history exists HIB Vaccines Aged Out [...] Procedure Name Priority Date/Time Associated Diagnosis Comments CBC WITH AUTO DIFFERENTIAL Routine 03/28/2025 9:21 AM EDT [place] SYPHILIS SCREEN Routine 03/28/2025 9:21 AM EDT [place] HIV 1/2 ANTIGEN/ANTIBODY, FOURTH GENERATION W/RFL Routine 03/28/2025 9:21 AM EDT [place] HEPATITIS C AB W/REFL TO HCV RNA, QN, PCR Routine 03/28/2025 9:21 AM EDT [place] HEPATITIS B SURFACE ANTIGEN, EIA Routine 03/28/2025 9:21 AM EDT [place] HEPATITIS B SURFACE ANTIBODY, QUALITATIVE Routine 03/28/2025 9:21 AM EDT [place] HEPATITIS B CORE AB TOTAL Routine 03/28/2025 9:21 AM EDT [place] HEPATITIS A ANTIBODY, TOTAL Routine 03/28/2025 9:21 AM EDT [place] LIPID PANEL, STANDARD Routine 05/12/2023 8:23 AM EST Prediabetes Moderate mixed hyperlipidemia not requiring statin therapy HEMOGLOBIN A1C Routine 05/11/2023 9:45 AM EST Prediabetes from Last 3 Months or Most Recently Relevant to Health Maintenance Results * Syphilis Screen (03/28/2025 9:21 AM EDT) Syphilis Screen Nonreactive Nonreactive [facility] Blood 03/28/2025 9:21 AM EDT 03/28/2025 11:42 AM EDT us Uriel Michel MD LAB BLOOD ORDERABLES Final Resul t [facility] [address] [place] [phone] [phone] * (ABNORMAL) CBC auto differential (03/28/2025 9:21 AM EDT) White Blood Count 5.8 4.8 - 10.8 X10*3/uL [facility] Red Blood Count 5.27 4.60 - 5.80 X10*6/uL [facility] Hemoglobin 14.7 14.0 - 18.0 g/dl [facility] Hematocrit 45.8 42.0 - 52.0 % [facility] Mean Corpuscular Volume 86.9 80.0 - 98.0 fL [facility] Mean Corpuscular Hemoglobin 27.9 27.0 - 33.0 pg [facility] Mean Corpuscular HGB Conc 32.1 31.0 - 36.0 g/dl [facility] Red Cell Distribution Width 14.0 11.0 - 16.0 % [facility] Platelet Count 294 160 - 400 X10*3/uL [facility] Mean Platelet Volume 10.7 9.4 - 12.4 fL [facility] Neutrophils Percent Auto 62.2 45 - 73 % [facility] Imm Gran Pct Auto 0.5(H) 0.0 - 0.4 % [facility] Lymphocytes Percent Auto 28.3 20 - 40 % [facility] Monocytes Percent Auto 6.6 2 - 11 % [facility] Eosinophils Percent Auto 2.1 0 - 4 % [facility] Basophils Percent Auto 0.3 0 - 2 % [facility] NRBC Pct Auto 0.0 0.0 - 0.2 /100WBC [facility] Neutrophils Absolute Auto 3.6 2.0 - 8.3 x10*3/uL [facility] Imm Gran Abs Auto 0.03 0.00 - 0.03 X10*3/uL [facility] Lymphocytes Absolute Auto 1.6 1.2 - 4.9 X10*3/uL [facility] Monocytes Absolute Auto 0.4 0.1 - 1.2 X10*3/uL [facility] Eosinophils Absolute Auto 0.1 0.0 - 0.4 X10*3/uL [facility] Basophils Absolute Auto 0.0 0.0 - 0.2 X10*3/uL [facility] NRBC Abs Auto 0.000 0.0 - 0.012 X10*3/uL [facility] Blood Venous blood specimen / Unknown 03/28/2025 9:21 AM EDT 03/28/2025 11:42 AM EDT Uriel Michel MD LAB BLOOD ORDERABLES Final Resul t Performing Organization Address [facility] Co de Phone Number [facility] [address] [place] [phone] * Hepatitis C Antibody with Reflex to HCV, RNA, Quantitative, Real-Time PCR (03/28/2025 9:21 AM EDT) Hepatitis C Antibody Nonreactive Nonreactive [facility] Comment:Antibodies to HCV no t detected; does not exclude early acuteHCV infection. Blood Venous blood specimen / Unknown 03/28/2025 9:21 AM EDT 03/28/2025 11:41 AM EDT Uriel Michel MD LAB BLOOD ORDERABLES Final Resul t Performing Organization Address City/[facility] Co de Phone Number [facility] [address] [place] [phone] * Hepatitis A Antibody, Total (03/28/2025 9:21 AM EDT) Hepatitis A Antibody IgG Nonreactive Nonreactive [facility] Blood Venous blood specimen / Unknown 03/28/2025 9:21 AM EDT 03/28/2025 11:41 AM EDT us Uriel Michel MD LAB BLOOD ORDERABLES Final Resul t Performing Organization Address [facility] Co de Phone Number [facility] [address] [place] [phone] * Hepatitis B surface antigen, EIA (03/28/2025 9:21 AM EDT) Hepatitis B Surface Ag Negative Negative [facility] Blood Venous blood specimen / Unknown 03/28/2025 9:21 AM EDT 03/28/2025 11:41 AM EDT us Uriel Michel MD LAB BLOOD ORDERABLES Final Resul t Performing Organization Address [facility] Co de Phone Number [facility] [address] [place] [address] [phone] * Hepatitis B Core Antibody, Total (03/28/2025 9:21 AM EDT) Hepatitis B Core Antibody Nonreactive Nonreactive [facility] Blood Venous blood specimen / Unknown 03/28/2025 9:21 AM EDT 03/28/2025 11:41 AM EDT us Uriel Michel MD LAB BLOOD ORDERABLES Final Resul t Performing Organization Address [facility] de Phone Number [facility] [address] [place] [address] [phone] * HIV-1/2 Antigen and Antibodies, Fourth Generation, with Reflexes (03/28/2025 9:21 AM EDT) HIV AB/AG Nonreactive Nonreactive [facility] Comment:HIV-1 p24 Ag and/or HIV-1/HIV-2 Ab not detected.A test result that is nonreactive does not exclude thepossibility of exposure to or infection with HIV-1 and/orHIV-2. Nonreactive results in this assay for individualswith prior exposure to HIV-1 and/or HIV-2 may be due toantigen and antibody levels that are below the limit ofdetection of this assay.The [employer] HIV Ag/Ab Combo assay result andsupplemental assay results should be interpreted inconjunction with the patient's clinical presentation,history and other laboratory results. If the results areinconsistent with clinical evidence, additional testing issuggested to confirm the result. Blood Venous blood specimen / Unknown 03/28/2025 9:21 AM EDT 03/28/2025 11:41 AM EDT us Uriel Michel MD LAB BLOOD ORDERABLES Final Resul t Performing Organization Address [facility] Co de Phone Number [facility] [address] [place] [phone] * Hepatitis B Surface Antibody, Qualitative (03/28/2025 9:21 AM EDT) ~Hepatitis B Surface Antibody NONREACTIVE Nonreactive [facility] Comment:Nonreactive: < 8.00 mIU/mL Blood Venous blood specimen / Unknown 03/28/2025 9:21 AM EDT 03/28/2025 11:41 AM EDT us Uriel Michel MD LAB BLOOD ORDERABLES Final Resul t Performing Organization Address [facility] Co de Phone Number [facility] [address] [place] [address] [phone] * (ABNORMAL) Lipid Panel, Standard (05/12/2023 8:23 AM EST) Triglycerides 66 <150 mg/dL [facility] Comment:Desirable Triglyceri de: less than 150 mg/dLBorderline High Triglyceride 150-199 mg/dLHigh Triglyceride: 200-499 mg/dLVery High Triglyceride: greater than or equal to 5OO mg/dL Cholesterol 194 <200 mg/dL [facility] Comment:Desirable Cholestero l: less than 200 mg/dLBorderline High Cholesterol: 200-239 mg/dLHigh Cholesterol: greater than 239 mg/dL LDL Cholesterol Calculated 133(H) <100 mg/dL [facility] Comment:Desirable LDL: less than 100 mg/dLNear Optimal/Above Optimal LDL: 110- 129 mg/dLBorderline High LDL: 130-159 mg/dLHigh LDL: 160-189 mg/dLVery High LDL: greater than or equal to 190 mg/dL HDL Cholesterol 48 >40 mg/dL [facility] Comment:Desirable HDL: great er than 40 mg/dL Note: This HDL assay may give artificially low results in patients with liver disease. Blood Venous blood specimen / Unknown 05/12/2023 8:23 AM EST 05/12/2023 11:19 AM EST Mariah Johnson MD LAB BLOOD ORDERABLES Final Res ult Performing Organization Address [facility] Co de Phone Number [facility] [address] [place] [address] [phone] * (ABNORMAL) Hemoglobin A1c (05/11/2023 9:45 AM EST) Hemoglobin A1c 6.3(H) <6.0 % [facility] Comment:Hemoglobin A1C Refer ence Range Adults: 4.8 - 6.0 % Non diabetic: < 6.0 % Goal: < 7.0 %Additional Action Suggested: > 8.0 %Note: Hemoglobin A1c results are invalid for patients with abnormal amounts of HbF. Blood transfusions may impact the HbA1c concentration in the patient sample. Estimated Average Glucose 134 mg/dL [facility] Comment:eAG = Estimated ave rage glucose which is %A1C expressed asaverage glucose, using the formula of the U2O-BtfwpogNdhnvmk Glucose study (ADAG), Diabetes Care, Vol.31,#8,2007 Blood Venous blood specimen / Unknown 05/11/2023 9:45 AM EST 05/11/2023 11:03 AM EST us Mariah Johnson MD LAB BLOOD ORDERABLES Final Res ult Performing Organization Address [facility]/ZIP Co de Phone Number [facility] [address] [place] [phone] from Last 3 Months or Most Recently Relevant to Health Maintenance Insurance [facility] ONE CARE < [address] [place] [id number] Care Teams Certified [employer] Administrator Relationship Specialty Start Date End Date Mariah Johnson MD [address] [facility] [place] [address] PCP - General Family Medicine 04/21/23
--- OUTSIDE RECORDS SUMMARY | 2025-05-28 15:04 | XMS_ITS | Encounter Summary ---
Demographics Address [address] [place] [address] Mobile Phone Home Phone Work Phone Email Address Preferred Language es Marital Status Restoration Affiliation Unknown Race Other Race Ethnic Group Unknown Author Organization [employer] Address [address] [place] [address] Care Team Providers Care Cane Feeder Name Role Phone Mariah Johnson MD Primary Care Provider [phone] Encounter Details Date Type Department Care Team (Late st Contact Info) Description 05/16/2023 Orders Only [facility] [address] [place], [place] [phone] Mariah Johnson MD [address] [place], [place] [phone] Social History Tobacco Use Types Packs/Day Years [...] HIGH SENSITIVITY 3.5 <3.5 - 35.0 ng/L [facility] Comment:The [place] high sens itivity Troponin-I results should beused in conjunction with other diagnostic information suchas ECG, clinical observations and information, and patientsymptoms to aid in the diagnosis of [place]. 07/27/2023 10:0 7 AM EST 07/27/2023 10:12 AM EST us Generic External Data Provider LAB BLOOD ORDERAB LES Final Result [facility] [address] [place] [phone] * Drug Monitoring, Panel 1, Screen, Urine (07/12/2023 12:07 PM EST) Opiate Screen Urine Not Detected Not Detect [facility] Comment:Opiate cut-off is 30 0 ng/mL.Positive results are unconfirmed and should not be used fornon-medical purposes. Barbiturates, Urine Not Detected Not Detect [facility] Comment:Barbiturate cut-off is 200 ng/mL.Positive results are unconfirmed and should not be used fornon-medical purposes. Phencyclidine Screen Urine Not Detected Not Detect [facility] Comment:Phencyclidine cut-of f is 25 ng/mL.Positive results are unconfirmed and should not be used fornon-medical purposes. Amphetamine Screen Urine Not Detected Not Detect [facility] Comment:Amphetamine cut-off is 1000 ng/mL.Positive results are unconfirmed and should not be used fornon-medical purposes. Benzodiazepines Screen Urine Not Detected Not Detect [facility] Comment:Benzodiazepine cut-o ff is 200 ng/mL.Positive results are unconfirmed and should not be used fornon-medical purposes. Cocaine Screen Urine Not Detected Not Detect [facility] Comment:Cocaine cut-off is 3 00 ng/mL.Positive results are unconfirmed and should not be used fornon-medical purposes. Cannabinoid Screen Urine Not Detected Not Detect [facility] Comment:Cannabinoid cut-off is 50 ng/mL.Positive results are unconfirmed and should not be used fornon-medical purposes. FENTANYL URINE Not Detected Not Detect [facility] Comment:Fentanyl cut-off is 1 ng/mL.Positive results are unconfirmed and should not be used fornon-medical purposes. 07/12/2023 12:0 7 PM EST 07/12/2023 12:10 PM EST us Generic External Data Provider LAB URINE ORDERAB LES Final Result [facility] [address] [place] [phone] [phone] documented in this encounter Visit Diagnoses Not on filedocumented in this encounter Additional Health Concerns Assessment Noted Time PHQ-9 Depression Total Score: 0 05/09/20 23 10:13 AM EST documented as of this encounter Care Teams Cane Feeder Relationship Specialty Start Date End Date Mariah Johnson MD [address] [place] [phone] PCP - General Family Medicine 04/21/23 documented as of this encounter
[2025-05-28 16:21] LABS: MANUAL DIFF FLAG NO
[2025-05-28 16:28] LABS: Hematocrit 46.4 % (42.0-52.0); Hemoglobin 15.2 g/dl (14.0-18.0); Imm Gran Abs Auto 0.03 X10*3/uL (0.00-0.03); Imm Gran Pct Auto 0.5 % (0.0-0.4); Lymphocytes Absolute Auto 2.1 X10*3/uL (1.2-4.9); Mean Corpuscular HGB Conc 32.8 g/dl (31.0-36.0); Mean Corpuscular Hemoglobin 28.8 pg (27.0-33.0); Mean Corpuscular Volume 88.0 fL (80.0-98.0); NRBC Abs Auto 0.000 X10*3/uL (0.0-0.012); NRBC Pct Auto 0.0 /100WBC (0.0-0.2); Platelet Count 246 X10*3/uL (160-400); Red Blood Count 5.27 X10*6/uL (4.60-5.80); White Blood Count 5.8 X10*3/uL (4.8-10.8)
[2025-05-28 16:51] LABS: Lithium 0.10 mmol/L (0.60-1.20)
== END 2025-05-28 13:51 | disposition home or self-care (01) ==
LOC: HO.HHCL 13:50
PROVIDERS: Visit Provider Nurse Practitioner Psychiatric/Mental Health
DX: Z79.899 Other long term (current) drug therapy (principal)
CPT/HCPCS: 36415; 80178; 85025